=== PATIENT | female | born 1955 | race Caucasian/White ===

== ENCOUNTER 2018-01-10 07:56 | Day surgery (SDC) | payer MEDICARE, OTHER, SELFPAY ==
--- NOTE | 2018-01-10 | PATH_ITS ---
[facility] Accession Number: [id number] . 01 Material submitted: . PART A: DUODENAL PART B: ANTRAL PART C: GE JUNCTION PART D: FUNDUS PART E: COLON POLYP AT 25 . 02 Diagnosis: A. Duodenum, Biopsy: Duodenal mucosa with no diagnostic abnormality. Negative for active inflammation, features of sprue, dysplasia, or malignancy. . B. Stomach, Antrum, Biopsy: Antral-type mucosa with no diagnostic abnormality. Negative for Helicobacter organisms by immunohistochemistry. Negative for intestinal metaplasia. Negative for dysplasia and malignancy. . C. Gastroesophageal Junction, Biopsy: Columnar mucosa with no diagnostic abnormality. Negative for intestinal metaplasia by Alcian blue stain. Negative for dysplasia and maligancy. . D. Stomach, Fundus, Biopsies: Mild chronic gastritis. Negative for Helicobacter organisms by immunohistochemistry. Negative for intestinal metaplasia. Negative for dysplasia and malignancy. . E. Colon, Polyp At 25, Biopsy: Hyperplastic polyp with features of mucosal prolapse. Additional levels were examined. . . . . . . . . . . . . . . . . . . . . . . . . . . . . . . . . . . . . . . . . I/01/14/2018 . 02 Electronically signed: . Fabi Davis MD, Pathologist NPI- [id number] . 01 Gross description: . Received are five formalin-filled containers, each labeled with the patient's name: . A. In a container labeled duodenal, the specimen consists of two extremely tiny less than 0.1 cm portions of tissue, entirely submitted in cassette A. B. In a container labeled antral, the specimen consists of a 0.2 cm portion of tissue, entirely submitted in cassette B. C. In a container labeled GE junction, the specimen consists of a 0.1 cm portion of tissue and mucoid material, entirely submitted in cassette C. D. In a container labeled fundus, the specimen consists of a 0.2 cm portion of tissue, entirely submitted in cassette D. E. In a container labeled colon polyp at 25 cm, the specimen consists of three less than 0.1 cm to 0.3 cm portions of tissue, entirely submitted in cassette E. ([id number]) /FRR . 02 Microscopic: . B, D, Immunohistochemical stains were performed to evaluate for Helicobacter on blocks B and D. They are both negative. The control stain showed appropriate reactivity. . C. A HEAB stain was evaluate for intestinal metaplasia and is negative. The control stain showed appropriate reactivity. . . . . * This test was developed and its performance characteristics determined by [facility]. It has not been cleared or approved by the U.S. Food and Drug Administration. The FDA has determined that such clearance or approval is not necessary. This test is used for clinical purposes. It should not be regarded as investigational or for research. . 02 Pathologist provided ICD-10: R10.9 . 02 CPT . 536989, 935925, 662848, 117766, 009296, 710554, [id number] Performed at: 01 [facility] [address] [facility], [place], [place] [id number] MD Josiah Robison MD Phone: [phone] Performed at: 02 [facility] [address] [facility] [place], [place] [id number] MD Mc Padilla MD Phone: [phone]
[2018-01-10 08:37] VITALS: BP 179/86; PULSE 100; RESP 16; TEMP 37; O2SAT 97; BMI 43.0
[2018-01-10] MEDS: SODIUM CHLORIDE 0.9% 1,000 ML 200 ML IV (08:45)
--- NOTE | 2018-01-10 09:26 | P.HP_ITS ---
History of Present Illness Date Patient Seen: 01/10/18 Time Patient Seen: 09:22 Chief complaint: [id number] Narrative: Very pleasant lady of 62 years who presents today for EGD and colonoscopy. She was seen in our clinic approximately 3 months ago with complaint of dysphagia and severe left lower quadrant pain. She has an extensive medical history including at least 11 abdominal operations. Her last colonoscopy was in 2013 and was normal. Patient History Surgical History History of bilateral salpingo-oophorectomy (BSO) History of bilateral salpingo-oophorectomy (BSO) Status post delivery Status post delivery Status post colonoscopy Status post exploratory laparotomy Status post hysterectomy Family & Social History Family History: Reviewed 01/10/18 by Qing Stevens MD Social History: household members significant other Meds Home Medications Medication Instructions Recorded Confirmed Type POTASSIUM CHLORIDE (POTASSIUM 40 meq PO #0 05/12/11 History CHLORIDE SOLUTION (NOT AVAILABLE)) furosemide [Lasix] 80 mg PO Q DAY #0 05/12/11 01/10/18 History trazodone 150 mg PO HS #0 05/12/11 01/10/18 History clonazepam 2 mg PO BID #0 05/13/11 01/10/18 History ibuprofen 800 mg PO TIDP PRN #30 tab 05/27/16 01/10/18 Rx epinephrine 0.3 mg IJ PRN PRN #0 05/08/17 01/10/18 History lisinopril 20 mg PO QDAY #0 05/08/17 01/10/18 History Allergies Allergy/AdvReac Type Severity Reaction Status Date / Time iodine Allergy Severe Anaphylaxis Verified 01/10/18 08:27 Penicillins [PENICILLINS] Allergy Severe Anaphylaxis Verified 01/10/18 08:27 Sulfa (Sulfonamide Allergy Severe Anaphylaxis Verified 01/10/18 08:27 Antibiotics) [SULFA (SULFONAMIDE ANTIBIOTICS)] cephalexin [From KEFLEX] Allergy Intermediate Vomit Verified 01/10/18 08:27 codeine [CODEINE] Allergy Intermediate Vomit Verified 01/10/18 08:27 hydrocodone [HYDROCODONE] Allergy Intermediate Vomiting Verified 01/10/18 08:27 oxycodone [OXYCODONE] Allergy Intermediate Vomiting Verified 01/10/18 08:27 gabapentin [GABAPENTIN] AdvReac Unknown makes pt. Verified 01/10/18 08:27 really mean BEE VENOM Allergy Severe Anaphylaxis Uncoded 01/10/18 08:27 Review of Systems Review of Systems Significant left lower quadrant pain and dysphagia. She says the left lower quadrant pain is ?nasty?. She denies any change in her bowel habits and denies any weight loss. Exam Vital Signs (past 8 hours): Vital Signs - 8 hr 3 01/10/18 08:37 Temperature 98.6 F Pulse Rate 100 H Respiratory Rate 16 Blood Pressure 179/86 H Pulse Oximetry 97 Pulse Oximetry 97 Oxygen Delivery Method Room Air Narrative Exam Narrative: HEENT: NCAT, PERRLA, EOMI Lungs: CTAB CV: RRR, no murmur Abdomen: Soft, active bowel sounds, multiple healed abdominal incisions consistent with stated history Extremities: Warm and well perfused, 1+ edema bilaterally Assessment & Plan Plan: Assessment/Plan Narrative: Very pleasant lady with significant new dysphagia and a left lower quadrant abdominal pain in the setting of multiple operations for benign disease. We discussed the risks and benefits of EGD and colonoscopy and the patient expressed a desire to complete the procedures today.
[2018-01-10] MEDS: TETRACAINE/BENZOCAINE/BUTAMBEN (CETACAINE) BOTTLE 1 SPRAY TOP (10:06)
[2018-01-10] MEDS: PROMETHAZINE 25 MG/ML VIAL 12.5 MG IV (10:06)
[2018-01-10] MEDS: LIDOCAINE 4% SOLN 50 ML 20 ML TOP (10:06)
[2018-01-10] MEDS: MIDAZOLAM 5 MG/5 ML VIAL IV (10:07)
[2018-01-10] MEDS: fentaNYL 250 MCG/5 ML INJ IV (10:08)
--- NOTE | 2018-01-10 10:14 | PM.OP.1 ---
Operative Date/Time/Diagnoses - Date of procedure: 01/10/18 Time of procedure: 10:14 Pre-op diagnosis: Dysphagia Left lower quadrant pain and screening Post-op diagnosis: same Procedure & Clinicians Procedure: Esophagogastroduodenoscopies and colonoscopy with polypectomies Same procedure as scheduled: Yes Indications: Last Colonoscopy 2013 Surgeon: Qing Stevens Click Yes if Unassisted: Yes Anesthesia Type: Sedation (versed 12 mg; Fentanyl 300 mcg; Phenergan 12.5 mg) Operative Notes Findings: 1. Normal duodenum 2. Mild antral gastritis without ulceration 3. Retained gastric contents - fluid 4. GE junction at 40 cm from the incisors - very regular z line without hiatal hernia 5. Normal esophagus and posterior oropharynx 6. Adequate colon prep 7. A cluster of 3 sessile polyps at 25 cm from the anal verge. All removed with cold forceps and retained for pathology 8. Minimal diverticulosis in the distal descending colon 9. Grade 1-2 internal hemorrhoids 10. Two submucosal lipomas noted at 70 cm and 15 cm respectively. Closure Type: not applicable Specimen(s): other Estimated Blood Loss (mL): 1 Procedure in detail: After obtaining informed consent, the patient was brought to the GI suite and placed in the left lateral decubitus position on the examination table. After placement of appropriate monitors, the patient was given incremental doses of Versed and Fentanyl until an appropriate level of sedation was achieved. A time out was held per [facility]AP protocol. We began with EGD. A bite block was gently placed between the patient's teeth. The endoscope was lubricated and then passed into the patient's posterior oropharynx. The esophagus was cannulated under direct vision and the scope was passed to the second portion of the duodenum without difficulty. The scope was then withdrawn with careful examination of all areas of the upper GI tract and mucosa. In the stomach, the instrument was retroflexed and the GE junction examined. The scope was straightened and the procedure continued with examination of the remainder of the upper GI tract. Findings are noted above. Air was aspirated from the stomach and the endoscope gently removed from the esophagus. The examination table was turned and we continued with the colonoscopy. A digital rectal examination was performed and did not reveal any masses or obstructing lesions. The colonoscope was gently passed into the patient's anus and the entire colon navigated to the level of the cecum with minimal difficulty. Once in the cecum, the scope was withdrawn being sure to go before and beyond all mucosal folds and prominences and get an excellent examination. The findings are noted above. At the level of the rectal vault, the scope was retroflexed and the internal anal canal was examined. The scope was straightened and air aspirated from the colon. The instrument was removed from the patient's body and the procedure was concluded. The patient was allowed to awaken from sedation without difficulty and taken to the post-anesthesia care unit in good condition. Total sedation time was 50 minutes Colonoscopy withdrawl time was 22 minutes Complications: none Condition: stable Disposition: PACU Plan for aftercare: 1. Discharge to home 2. We will contact you with results and recommendations 3. Plan for next colonoscopy in 5 years or as clinically indicated.
[2018-01-10 10:21] VITALS: BP 154/83; PULSE 103; RESP 22; TEMP 36.4; O2SAT 97
[2018-01-10 10:24] VITALS: BP 165/91; PULSE 94; RESP 18; O2SAT 98
[2018-01-10 10:29] VITALS: BP 131/75; PULSE 89; RESP 12; TEMP 36.8; O2SAT 98
[2018-01-10 10:47] VITALS: BP 144/96; PULSE 85; RESP 16; TEMP 36.6; O2SAT 96
== END 2018-01-10 10:55 | disposition home or self-care (01) ==
PROVIDERS: Family Provider Student in an Organized Health Care Education/Training Program; PCP Student in an Organized Health Care Education/Training Program; Visit Provider Surgery
PROC: 0DJ08ZZ Inspection of Upper Intestinal Tract, Via Natural or Artificial Opening Endoscopic (ICD-10-PCS; CPT 43235; principal; 2018-01-10 08:45)
PROC: 0DJD8ZZ Inspection of Lower Intestinal Tract, Via Natural or Artificial Opening Endoscopic (ICD-10-PCS; CPT 45378; 2018-01-10 08:45)
DX: R10.32 Left lower quadrant pain (principal); R13.10 Dysphagia, unspecified; K29.70 Gastritis, unspecified, without bleeding; K57.30 Diverticulosis of large intestine without perforation or abscess without bleeding; D12.5 Benign neoplasm of sigmoid colon; K64.1 Second degree hemorrhoids; D17.5 Benign lipomatous neoplasm of intra-abdominal organs
CPT/HCPCS: 45380; 43235; 99152; 99153; J2250; J2550; J3010

== ENCOUNTER → 2018-03-26 07:28 | Outpatient (CLI) | payer MEDICARE, OTHER, SELFPAY ==
[2018-03-26 07:40] LABS: Bacteria Urine None Seen; RBC Urine None Seen (0-5/HPF); WBC Urine None Seen (0-5/HPF)
[2018-03-26 08:53] LABS: Appearance Urine UA CLEAR; Bilirubin Urine UA NEGATIVE (NEGATIVE); Color Urine UA YELLOW; Glucose Urine UA NEGATIVE (Normal); Ketones Urine UA NEGATIVE (NEGATIVE); Leukocyte Esterase Urine UA NEGATIVE (NEGATIVE); Nitrite Urine UA Negative (Negative); Occult Blood Urine UA NEGATIVE (Negative); Protein Urine UA NEGATIVE (Negative); Urobilinogen Urine UA 0.2 E.U./dL (0.2)
[2018-03-26 08:58] LABS: Add Manual Diff / Slide Review NO; Basophils Percent Auto 0.6 % (0-2); Eosinophils Percent Auto 1.4 % (2-4); Hematocrit 46.1 % (36-46); Hemoglobin 15.6 g/dL (12.0-16.0); Lymphocytes Percent Auto 32.6 % (25-40); Mean Corpuscular HGB Conc 33.9 % (30-36); Mean Corpuscular Hemoglobin 29.2 PG (26-34); Mean Corpuscular Volume 86.1 fL (80-100); Monocytes Percent Auto 9.1 % (3-14); Neutrophils Absolute Auto 4100 /uL (3000-5900); Neutrophils Percent Auto 56.3 % (50-75); Platelet Count 196 X10^3/uL (150-400); Red Blood Cell Count 5.36 X10^6/uL (4.0-5.2); Red Cell Distribution Width 14.1 % (11.6-14.8); White Blood Cell Count 7.3 X10^3/uL (4.5-11.0)
[2018-03-26 09:00] LABS: Alanine Aminotransferase 39 IU/L (9-52); Albumin 4.2 g/dL (3.5-5.0); Albumin Globulin Ratio 1.3 (1.0-2.8); Alkaline Phosphatase 92 U/L (38-126); Aspartate Aminotransferase 28 IU/L (14-36); BUN Creatinine Ratio 22.5 (6-22); Bilirubin Total 0.6 mg/dL (0.2-1.3); Blood Urea Nitrogen 18 mg/dL (7-17); Calcium 8.7 mg/dL (8.4-10.2); Carbon Dioxide 30 mmol/L (22-32); Chloride 102 mmol/L (98-107); Cholesterol 217 mg/dL (140-199); Culture Indicated Urine Cult Not Indicated; Estimated Glomerular Filt Rate > 60.0 mL/min (>60); Globulin 3.2 g/dL (1.7-4.1); Glucose 137 mg/dL (80-110); HDL Cholesterol 49 mg/dL (40-60); HEMOLYSIS 16 (0-50); LDL Cholesterol Calculated 135 mg/dL (<100); Potassium 3.8 mmol/L (3.4-5.1); Sodium 143 mmol/L (137-145); Total Protein 7.4 g/dL (6.3-8.2); Triglycerides 165 mg/dL (35-150)
[2018-03-26 09:36] LABS: Creatinine Urine Random 30.4 mg/dL
[2018-03-26 09:37] LABS: Hemoglobin A1C% w Est Avg Glu 6.2 % (4.0-6.0)
[2018-03-26 09:39] LABS: Thyroid Stimulating Hormone 0.48 uIU/mL (0.47-4.68)
[2018-03-26 09:41] LABS: Microalbumi Creatinin Ratio Ur 19.7 ug/mg CR (<30); Microalbumin Urine Random < 0.6 mg/dL (0-1.6)
== END ==
PROVIDERS: Visit Provider Registered Nurse
DX: E03.9 Hypothyroidism, unspecified (principal); E66.9 Obesity, unspecified; I10 Essential (primary) hypertension
CPT/HCPCS: 36415; 80053; 80061; 81001; 82043; 82570; 83036; 84443; 85025

== ENCOUNTER → 2018-04-02 09:03 | Outpatient (CLI) | payer MEDICARE, OTHER, SELFPAY ==
--- NOTE | 2018-04-02 09:08 | DI.RAD.S_ITS ---
PROCEDURE: XR KNEE RT 3V INDICATIONS: knee pain TECHNIQUE: 3 views of the knee were acquired. [facility], 8:58. FINDINGS: Bones: No fractures or dislocations. No suspicious bony lesions. Right knee arthroplasty. Hardware is intact without evidence of loosening. Soft tissues: No joint effusion. No suspicious soft tissue calcifications. IMPRESSION: Stable interval exam. Dictated by: Sydnee Husain M.D. on 04/02/2018 at 9:20 Approved by: Sydnee Husain M.D. on 04/02/2018 at 9:48
--- NOTE | 2018-04-02 09:08 | DI.RAD.S_ITS ---
PROCEDURE: XR KNEE LT 3V INDICATIONS: knee pain TECHNIQUE: 3 views of the knee were acquired. COMPARISON: [facility], , KNEE 1-2 VIEWS RIGHT, 05/29/2007, 19:32. FINDINGS: Bones: No fractures or dislocations. No suspicious bony lesions. There is severe tricompartmental narrowing, most significant medially. Prominent periarticular osteophytes are present. Medial subchondral sclerosis is present. No erosions. Soft tissues: Minimal joint effusion. No suspicious soft tissue calcifications. IMPRESSION: Severe tricompartmental degenerative changes consistent with osteoarthritis. Dictated by: Sydnee Husain M.D. on 04/02/2018 at 9:48 Approved by: Sydnee Husain M.D. on 04/02/2018 at 9:54
[2018-04-04 21:23] LABS: Protein S Antigen 107 % normal (70-140)
[2018-04-05 23:14] LABS: Protein C Antigen 127 % normal (70-140)
== END ==
PROVIDERS: PCP Registered Nurse; Visit Provider Registered Nurse
DX: M25.561 Pain in right knee (principal); M25.562 Pain in left knee; G89.29 Other chronic pain; M17.12 Unilateral primary osteoarthritis, left knee; Z86.718 Personal history of other venous thrombosis and embolism; Z83.2 Family history of diseases of the blood and blood-forming organs and certain disorders involving the immune mechanism
CPT/HCPCS: 36415; 73562; 81240; 81241; 85300; 85302; 85306

== ENCOUNTER → 2018-06-21 11:07 | Outpatient (CLI) | payer MEDICARE, OTHER, SELFPAY ==
[2018-06-21 11:26] LABS: Bacteria Urine None Seen; RBC Urine None Seen (0-5/HPF); WBC Urine None Seen (0-5/HPF)
[2018-06-21 12:25] LABS: Appearance Urine UA CLEAR; Bilirubin Urine UA NEGATIVE (NEGATIVE); Color Urine UA YELLOW; Glucose Urine UA NEGATIVE (Normal); Ketones Urine UA NEGATIVE (NEGATIVE); Leukocyte Esterase Urine UA NEGATIVE (NEGATIVE); Nitrite Urine UA NEGATIVE (Negative); Occult Blood Urine UA NEGATIVE (Negative); Protein Urine UA NEGATIVE (Negative); Specific Gravity Urine UA 1.015 (1.000-1.035); Urobilinogen Urine UA 0.2 E.U./dL (0.2); pH Urine UA 6.5 (4.5-8.0)
[2018-06-21 12:28] LABS: Alanine Aminotransferase 43 IU/L (9-52); Albumin 4.2 g/dL (3.5-5.0); Albumin Globulin Ratio 1.4 (1.0-2.8); Alkaline Phosphatase 85 U/L (38-126); Aspartate Aminotransferase 27 IU/L (14-36); BUN Creatinine Ratio 25.6 (6-22); Bilirubin Total 0.4 mg/dL (0.2-1.3); Blood Urea Nitrogen 23 mg/dL (7-17); Calcium 9.2 mg/dL (8.4-10.2); Carbon Dioxide 30 mmol/L (22-32); Chloride 98 mmol/L (98-107); Cholesterol 200 mg/dL (140-199); Estimated Glomerular Filt Rate > 60.0 mL/min (>60); Globulin 2.9 g/dL (1.7-4.1); Glucose 140 mg/dL (80-110); HDL Cholesterol 50 mg/dL (40-60); HEMOLYSIS < 15 (0-50); LDL Cholesterol Calculated 97 mg/dL (<100); Potassium 4.3 mmol/L (3.4-5.1); Sodium 142 mmol/L (137-145); Total Protein 7.1 g/dL (6.3-8.2); Triglycerides 266 mg/dL (35-150)
[2018-06-21 12:30] LABS: Add Manual Diff / Slide Review NO; Basophils Percent Auto 0.5 % (0-2); Eosinophils Percent Auto 1.6 % (2-4); Hematocrit 45.9 % (36-46); Hemoglobin 15.9 g/dL (12.0-16.0); Lymphocytes Percent Auto 31.8 % (25-40); Mean Corpuscular HGB Conc 34.7 % (30-36); Mean Corpuscular Hemoglobin 29.9 PG (26-34); Mean Corpuscular Volume 86.2 fL (80-100); Monocytes Percent Auto 7.8 % (3-14); Neutrophils Absolute Auto 4400 /uL (3000-5900); Neutrophils Percent Auto 58.3 % (50-75); Platelet Count 215 X10^3/uL (150-400); Red Blood Cell Count 5.33 X10^6/uL (4.0-5.2); Red Cell Distribution Width 13.8 % (11.6-14.8); White Blood Cell Count 7.6 X10^3/uL (4.5-11.0)
[2018-06-21 12:34] LABS: Culture Indicated Urine Cult Not Indicated; Urine Comments Microscopic Normal
[2018-06-21 12:35] LABS: Hemoglobin A1C% w Est Avg Glu 6.2 % (4.0-6.0)
== END ==
PROVIDERS: PCP Student in an Organized Health Care Education/Training Program; Visit Provider Student in an Organized Health Care Education/Training Program
DX: Z01.811 Encounter for preprocedural respiratory examination (principal); E55.9 Vitamin D deficiency, unspecified; Z91.89 Other specified personal risk factors, not elsewhere classified; E78.5 Hyperlipidemia, unspecified
CPT/HCPCS: 36415; 80053; 80061; 81001; 82306; 83036; 85025; 93005

== ENCOUNTER → 2018-07-03 17:01 | Outpatient (CLI) | payer MEDICARE, OTHER, SELFPAY ==
--- NOTE | 2018-07-03 17:07 | DI.MRI.S_ITS ---
PROCEDURE: MR KNEE LT WO CON INDICATIONS: UNILATERAL PROMARY OSTEOARTHRITIS OF LEFT KNEE. LEFT KNEE PAIN TECHNIQUE: Noncontrast sagittal PD fast spin echo and T2 fast spin echo with fat saturation, sagittal 3-D FLASH with fat saturation; coronal T1 spin echo and PD fast spin echo with fat saturation, and axial PD fast spin echo with fat saturation through the knee. COMPARISON: None. FINDINGS: Image quality: Excellent. Menisci: There is an oblique tear involving posterior horn of medial meniscus extending to inferior articulating surface. Peripheral displacement of medial meniscus is seen bowing medial collateral ligament. There is also suggestion of a complex oblique tear involving anterior horn of lateral meniscus extending to inferior articulating surface. The meniscal root ligaments appear intact. Cruciate ligaments: The anterior and posterior cruciate ligaments appear intact. Medial structures: The medial collateral ligament appears intact. The posterior oblique ligament, semimembranosus tendon insertions, oblique popliteal ligament, and meniscocapsular junction appear intact. Visualized portions of the pes anserinus tendons appear normal. No abnormal bursal fluid. Lateral structures: The lateral collateral ligament, long and short heads of the biceps femoris tendon appear intact. The popliteus tendon appears normal; the popliteofibular ligament appears intact. The posterosuperior and anteroinferior popliteomeniscal fascicles appear intact. The arcuate and fabellofibular ligaments appear intact, on either side of the lateral inferior geniculate artery. Iliotibial band appears normal. Anterior structures: The quadriceps and patellar tendons appear intact. Patellar alignment is normal. No femoral trochlear dysplasia or ventral trochlear prominence. No edema in the infrapatellar fat pad. Bones and cartilage: Moderate tricompartmental osteoarthritis is seen no prominent in medial femoral tibial compartment. Diffuse low to moderate chondromalacia throughout all 3 compartments of left knee is noted. Joint space: There is small amount of joint effusion. No Gooden's cyst. Normal appearing synovial plicae are incidentally noted. IMPRESSION: 1. Oblique tear involving posterior horn of medial meniscus extending to inferior articulating surface. Peripheral displacement of medial meniscus bowing medial collateral ligament. 2. Complex oblique tear involving anterior horn of lateral meniscus extending to inferior articulating surface. 3. Moderate tricompartmental osteoarthritis more prominent in medial femoral tibial compartment. 4. Cruciate ligaments are intact. Dictated by: Praveen Bo M.D. on 07/04/2018 at 9:09 Approved by: Praveen Bo M.D. on 07/04/2018 at 9:14
== END ==
PROVIDERS: Family Provider Student in an Organized Health Care Education/Training Program; PCP Student in an Organized Health Care Education/Training Program; Visit Provider Orthopaedic Surgery
DX: M17.12 Unilateral primary osteoarthritis, left knee (principal); M25.562 Pain in left knee; S83.242A Other tear of medial meniscus, current injury, left knee, initial encounter; S83.272A Complex tear of lateral meniscus, current injury, left knee, initial encounter
CPT/HCPCS: 73721

== ENCOUNTER → 2018-08-06 07:51 | Outpatient (CLI) | payer MEDICARE, OTHER, SELFPAY ==
[2018-08-06 09:01] LABS: Add Manual Diff / Slide Review NO; Basophils Absolute Auto 100 /uL (0-100); Basophils Percent Auto 0.7 % (0-2); Eosinophils Absolute Auto 200 /uL (0-450); Eosinophils Percent Auto 2.4 % (2-4); Hematocrit 48.2 % (36-46); Hemoglobin 15.9 g/dL (12.0-16.0); Lymphocytes Absolute Auto 3100 /uL (1100-4500); Monocytes Absolute Auto 800 /uL (0-900); Monocytes Percent Auto 8.8 % (3-14); Neutrophils Absolute Auto 4700 /uL (1500-7000); Neutrophils Percent Auto 53.1 % (50-75); Platelet Count 244 X10^3/uL (150-400); Red Blood Cell Count 5.47 X10^6/uL (4.0-5.2); Red Cell Distribution Width 13.8 % (11.6-14.8); White Blood Cell Count 8.8 X10^3/uL (4.5-11.0)
[2018-08-06 09:05] LABS: Hemoglobin A1C% w Est Avg Glu 6.4 % (4.0-6.0)
[2018-08-06 09:21] LABS: Carbon Dioxide 29 mmol/L (22-32); Chloride 99 mmol/L (98-107); Potassium 4.8 mmol/L (3.4-5.1); Sodium 141 mmol/L (137-145)
[2018-08-06 09:22] LABS: HEMOLYSIS 113 (0-50)
[2018-08-06 09:47] LABS: Vitamin D 25 Hydroxy (D3) 24.2 ng/mL (30.0-100.0)
== END ==
PROVIDERS: Family Provider Student in an Organized Health Care Education/Training Program; PCP Student in an Organized Health Care Education/Training Program; Visit Provider Orthopaedic Surgery
DX: R73.9 Hyperglycemia, unspecified (principal); Z01.818 Encounter for other preprocedural examination; E11.9 Type 2 diabetes mellitus without complications; E55.9 Vitamin D deficiency, unspecified
CPT/HCPCS: 80051; 82306; 83036; 85025

== ENCOUNTER 2018-08-21 07:39 | Inpatient (IN) | payer MEDICARE, OTHER, SELFPAY ==
[2018-08-05 08:29] VITALS: BMI 44.3
[2018-08-21] VITALS (13 sets, daily range): BP systolic 123–160; BP diastolic 53–95; PULSE 93–109; RESP 14–106; TEMP 36.3–36.9; O2SAT 96–100; BMI 44.9; BMI 44.7
--- NOTE | 2018-08-21 07:49 | PM.PREOP ---
Pre-operative Note Interval Note History & Physical reviewed/Exam performed by Physician: Yes Changes to H&P: No
--- NOTE | 2018-08-21 07:50 | PM.OP.1 ---
Operative Date/Time/Diagnoses Date of procedure: 08/21/18 Time of procedure: 11:52 Pre-op diagnosis: Left knee osteoarthritis Post-op diagnosis: same Procedure & Clinicians Procedure: Left total knee arthroplasty Same procedure as scheduled: Yes Surgeon: Josiah Connell Director Volunteer Services: Misha Triana Anesthesia Type: Spinal, Sedation and Local Operative Notes Findings: SEVERE OSTEOARTHRITIS WITH VARUS ALIGNMENT. Closure Type: primary Specimen(s): none sent Prosthetic devices, grafts, tissues, transplants, or devices: [employer] ESME BCS: 7 FEMORAL COMPONENT, 5 TIBIAL COMPONENT, 9 MM BCS POLYETHYLENE TRAY AND 35 X9 MM ROUND PATELLA Applied: implant(s) Estimated Blood Loss (mL): 50 Blood products transfused: none Tourniquet time (min): 25 Procedure in detail: The patient was taken to the operative suite and placed under spinal anesthesia. The patient was given prophylactic antibiotics prior to surgery. The patient was also given tranexamic acid, 1 g, just prior to surgery for postoperative hemostasis. The lateral knee was prepped and the joint injected with 20 mL of 1% Lidocaine with epinephrine. The knee was then prepped and draped in usual sterile fashion. The leg was exsanguinated with an Esmarch dressing and the tourniquet raised to 300 torr. A 15 cm anterior incision was made. Next a medial trivector arthrotomy was made. The extensor mechanism was marked to ensure accurate repair. Initial exposing dissection was carried out medially and laterally. The knee was then extended and the patellar thickness was measured and a cut made removing approximately 9 mm of bone with a goal of restoring normal patellar thickness. The patella was then sized and drilled. Some excess lateral bone was excised and the patellofemoral ligament released. The tourniquet was then released. The knee was then flexed and the [employer] femoral guide was placed. The anterior pins were placed and the distal rotation holes drilled. The distal cutting guide was placed and the templated distal femoral cut was made. The templating cutting block was then placed and the anterior, posterior and chamfer cuts made. The [employer] tibial guide was placed and the alignment checked along the axis of the proximal tibial with a ross. The proximal tibial cut was then made with an oscillating saw. All meniscus and bony debris was then removed. Flexion extension gaps were checked. The knee was somewhat tight in both flexion and extension. Another 2 mm was removed from the tibia. No other specific balancing was required other than routine exposure and removal of osteophytes. The soft tissues were then injected with a combination of 20 mL of half percent Marcaine with epinephrine and 20 mL of Exparel. The trial components were then placed. The knee went into full extension and flexion beyond 120?. There was excellent medial- lateral balance throughout motion. Patellar tracking was acceptable. The trial components were removed and size is confirmed for the final implants. The knee was then exsanguinated with an Esmarch dressing and the tourniquet reapplied for cementing. The knee was cleansed with Pulsavac irrigation and dried. The final components were cemented in with high viscosity vacuum mixed bone cement with antibiotics. The knee was held in extension and the patellar clamp until the cement had adequately cured. The knee was then irrigated with dilute Betadine solution. The extensor mechanism was closed with 5 interrupted #1 Vicryl sutures in 90 degrees of flexion. The joint was then injected with a combination of 1 g of tranexamic acid and 20 mL of quarter percent Marcaine with epinephrine. The subcutaneous tissue was closed with 2-0 Vicryl. The skin was closed with aviva and surgical adhesive. An Aquacel dressing and Paul wrap were then applied. Complications: none Condition: stable Disposition: PACU [facility]
[2018-08-21] MEDS: LACTATED RINGERS 1,000 ML 42 ML IV (08:30)
[2018-08-21] MEDS: ACETAMINOPHEN 325 MG TABLET 975 MG PO ×2 (08:37→21:23)
[2018-08-21] MEDS: CELECOXIB 200 MG CAPSULE PO (08:37)
[2018-08-21] MEDS: MIDAZOLAM 2 MG/2 ML VIAL IV (10:00)
[2018-08-21] MEDS: CLINDAMYCIN 900 MG/50 ML PIGGYBACK 50 MG IV ×2 (10:15→18:37)
--- NOTE | 2018-08-21 10:30 | DI.RAD.S_ITS ---
PROCEDURE: XR KNEE LT 1TO2V INDICATIONS: Postop left total knee TECHNIQUE: 2 view(s) of the knee acquired. COMPARISON: [facility], [facility], XR KNEE RT 3V, 04/02/2018, 8:58. FINDINGS: Bones: Patient is status post knee joint arthroplasty. Hardware components are in expected positions. Visualized bony structures are intact. Soft tissues: Overlying postoperative changes are noted. IMPRESSION: Expected postoperative appearance Dictated by: Duke Woodard M.D. on 08/21/2018 at 13:14 Approved by: Duke Woodard M.D. on 08/21/2018 at 13:14
[2018-08-21] MEDS: LIDOCAINE 1% W/EPI INJ 20 ML INJ (10:40)
--- NOTE | 2018-08-21 10:59 | SUR.OPER ---
Supine on padded OR bed. Pillow under head, arms secured on padded armboards <90 degree abduction. Safety belt across torso. Non-operative leg secured with tape over blanket over lower leg. Operative leg secured in DeMayo/Leobardo positioner. Foam padded brace at thigh of operative leg.
[2018-08-21] MEDS: BUPIVACAINE 0.5% W/ EPI (PF) 20 ML, BUPIVACAINE LIPOSOME 266 MG, SODIUM CHLORIDE 0.9% 8... INJ (11:11)
[2018-08-21] MEDS: BUPIVACAINE 0.5% W/ EPI (PF) 10 ML, TRANEXAMIC ACID 1,000 MG, SODIUM CHLORIDE 0.9% 20 ML INJ (11:13)
[2018-08-21] MEDS: diphenhydrAMINE 50 MG/ML VIAL IV (13:04)
[2018-08-21] MEDS: LACTATED RINGERS 1,000 ML 125 ML IV ×2 (13:05→21:26)
[2018-08-21] MEDS: ONDANSETRON 4 MG/2 ML INJ IV ×2 (13:18→18:37)
[2018-08-21] MEDS: HYDROMORPHONE 0.5 MG INJ IV ×2 (14:11→16:19)
[2018-08-21] MEDS: HYDROMORPHONE 2 MG TABLET PO ×3 (14:58→21:22)
--- NOTE | 2018-08-21 15:33 | PC.ADMIT ---
Admission Note: Arrived to 210 at 1230 from PACU. Alert and oriented x3 and denying pain, numbness present to BLEs on arrival. Pt reported itchiness all over, no visible rash. Order for Benadryl IV received from Dr. Torres and administered with good effect. Oriented to room and to bed/tv/call light controls. Call light within reach. Belongings at bedside - declines to lock valuables up. Cane and walker in room. Currently reporting pain 03/01 - IV dilaudid administered with minimal effect, PO Dilaudid given at 1500 after patient ate some crackers without issue. The patient,Charlotte Rico,62 y/o, was given written information regarding hospital policies, unit procedures and contact persons. Patient's smoking status: Former smoker. Vital Signs - 8 hr 08/21/18 08:20 08/21/18 12:05 08/21/18 12:10 Temperature 97.3 F L 98.1 F Pulse Rate 96 H 109 H 95 H Respiratory Rate 18 14 15 Blood Pressure 138/95 H 133/53 L 123/59 L Pulse Oximetry 96 98 97 08/21/18 12:15 08/21/18 12:20 08/21/18 12:30 Temperature 97.4 F L Pulse Rate 98 H 93 H 95 H Respiratory Rate 14 14 18 Blood Pressure 130/68 152/55 H 160/55 H Pulse Oximetry 97 99 97 08/21/18 13:00 08/21/18 13:19 08/21/18 13:30 Temperature 97.3 F L Pulse Rate 96 H 96 H 94 H Respiratory Rate 18 16 18 Blood Pressure 142/85 H 155/86 H Pulse Oximetry 96 98 100 08/21/18 14:30 Temperature 97.3 F L Pulse Rate 99 H Respiratory Rate 16 Blood Pressure 129/67 Pulse Oximetry 97
--- NOTE | 2018-08-21 15:45 | PT.IIE ---
Current Diagnoses Morbid (severe) obesity due to excess calories (08/21/18) Generalized anxiety disorder (08/21/18) Anxiety disorder, unspecified (08/21/18) Post-traumatic stress disorder, unspecified (08/21/18) Attention-deficit hyperactivity disorder, unspecified type (08/21/18) Obstructive sleep apnea (adult) (pediatric) (08/21/18) Other chronic pain (08/21/18) Other pulmonary embolism without acute cor pulmonale (08/21/18) Unilateral primary osteoarthritis, left knee (08/21/18) Dorsalgia, unspecified (08/21/18) Fibromyalgia (08/21/18) Surgery Performed Operation Date: 08/21/18 10:30 Actual Procedures p Total Knee Arthroplasty(Left) - Josiah Connell MD Surgical History (Last Reviewed 08/09/18 @ 12:37 by MARGARITA Cardenas) H/O spinal fusion (Acute) History of colonoscopy (Acute ~01/10/18) History of esophagogastroduodenoscopy (EGD) (Acute ~01/10/18) History of exploratory laparotomy (Acute) History of total knee arthroplasty (Acute ~2006) History of gynecologic surgery (Resolved 2006) History of unilateral oophorectomy (Resolved 1993) History of unilateral oophorectomy (Resolved 1992) Status post delivery (Resolved 1973) Status post delivery (Resolved 1974) Status post colonoscopy (Resolved 2013) Status post exploratory laparotomy (Resolved 2004) Status post hysterectomy (Resolved 1990) History of bilateral salpingo-oophorectomy (BSO) History of bilateral salpingo-oophorectomy (BSO) Medical History (Last Reviewed 08/09/18 @ 12:37 by MARGARITA Cardenas) Arthritis (Acute) Benzodiazepine dependence, continuous (Acute) Cataract (Acute) Chronic pain (Acute) Claustrophobia (Acute) Constipation (Acute) DDD (degenerative disc disease) (Acute) Degenerative arthritis of left knee (Acute) Diabetes (Acute) Dry eyes (Acute) Frequent UTI (Acute) GERD (gastroesophageal reflux disease) (Acute) Generalized anxiety disorder (Acute) Headache (Acute) Hemorrhoids (Acute) Herniated disc (Acute) High protein C activity level (Acute) History of hysterectomy (Acute ~1990) History of migraine (Acute) IBS (irritable bowel syndrome) (Acute) Impairment of balance (Acute) Incontinence (Acute) Neuropathy (Acute) APOLONIA (obstructive sleep apnea) (Acute) TIA (transient ischemic attack) (Acute ~2010) Vitamin D deficiency (Acute) ADHD (Chronic) Ankle pain (Chronic) Anxiety (Chronic) Carpal tunnel syndrome (Chronic) Cervical spine disease (Chronic) Chronic back pain (Chronic) Colon polyps (Chronic ~2017) Deep vein thrombosis (Chronic ~2006) Diverticular disease (Chronic ~2002) Fibromyalgia (Chronic) Foot pain (Chronic) Headache (Chronic) History of urinary incontinence (Chronic ~2007) Hypertension (Chronic ~2002) Hypothyroidism (Chronic ~1994) Leg swelling (Chronic) Lumbar spine pain (Chronic) Migraines (Chronic) Osteoporosis (Chronic) Post traumatic stress disorder (PTSD) (Chronic) Pulmonary embolism (Chronic ~2006) Rosacea (Chronic) Shoulder pain (Chronic) Colovaginal fistula (Resolved 2006) Mumps (Resolved) Rubella (Resolved) Stroke (Resolved) Physical Therapy Inpatient Evaluation/Re-Eval M1 PT/OT-IP Prior Functional Status Start: 08/21/18 16:24 Freq: NEEDED Status: Active Protocol: Document 08/21/18 15:45 AB (Rec: 08/21/18 16:39 AB [id number]) Medical Review Prior Functional Status Medical History Reviewed Yes Communication able to make needs known Mobility and Gait stated that she is independent with all mobilities and ambulation without AD indoors but with occasional use of SPC but uses SPC for outdoor mobility at all times. stated that she holds on to things at home during walking Social History Household Members significant other Living Arrangements Apartment/Condo Number of Floors (Floors) One Floor Number of Stairs To Enter/Railing? one small threshold step to enter Home Environment Standard Height Toilet Tub/Shower Home Equipment Front Wheel Walker Straight Cane Tub Transfer Bench Grab Bars In Shower Employment Status Retired M2 PT-IP Current Condition Start: 08/21/18 16:24 Freq: NEEDED Status: Active Protocol: Document 08/21/18 15:45 AB (Rec: 08/21/18 16:39 AB [id number]) Physical Therapy Current Condition Current Condition Evaluation Date 08/21/18 Treatment Diagnosis s/p L TKA; difficulties in walking Onset Date 08/21/18 Weight Bearing Status Weight Bearing Status Weight Bear as Tolerated M3 PT-IP Subjective Start: 08/21/18 16:24 Freq: NEEDED Status: Active Protocol: Document 08/21/18 15:45 AB (Rec: 08/21/18 16:39 AB [id number]) Subjective Physical Therapy Visit Type Type Initial Evaluation Visit Start Time 15:45 Visit Stop Time 16:20 Total Visit Minutes 35 Number of GARAGE SUPERVISOR Visits 0 Physical Therapy Visit Comments Patient Comments c/o a lot of knee pain but agreed to try to get up Therapy Pain Assessment Pain When Pain Assessed At Rest Pain Present Pain Present Pain Reported Location Bilateral Knee Intensity 9 Scale Used Numeric (1 - 10) Pain Behaviors Facial Grimacing Guarding Holding Area Restlessness Wincing Pain Management Techniques Apply Cold Re-positioning Timing of Activity with Medications M4 PT-IP Mobility and Gait Start: 08/21/18 16:24 Freq: NEEDED Status: Active Protocol: Document 08/21/18 15:45 AB (Rec: 08/21/18 16:39 AB [id number]) PT-Bed Mobility Assessment Supine to Sit Supine to Sit Minimal Assistance Bedrails Sit to Supine Sit to Supine Moderate Assistance Bedrails Scooting Scooting to Edge of Bed Moderate Assistance PT-Transfer Assessment Sit to and From Stand Sit to and from Stand Moderate Assistance 1 Person Assistance Use of Upper Extremities Comments Mobility Comments pt completed supine to sit min a to support LLE . pt completed sit to stand from EOB mod A and cues. attempted to ambulate but only able to take steps towards HOB ~ 3 ft using FWW mod A and cues. pt stated that she cannot walk too much due to pain. pt completed sit to supine mod A with assist with LLE up on bed . positioned pt on bed. ice pack provided. call light and table placed within reach. Gait Assessment Gait Gait Assistance Required: Moderate Assistance 1 Person Assist Distance (Feet) 3 Assistive Devices Assistive Device Gait Belt Front Wheeled Walker Orthotic/Prosthetic Devices or Brace: No Gait Deviations General Gait Pattern Antalgic Decreased Stride Length Decreased Feet Clearance Step-to Gait Factors Limiting Gait Function Factors Limiting Gait Function Decreased Activity Tolerance Decreased Sensation Decreased Strength Limited Range of Motion Pain Poor Balance Poor Safety Awareness Comments Gait Comments pt unable to tolerate much weight on LLE affecting standing and ambulation. PT-Balance Assessment Sitting Balance and Reactions Static Sitting Balance Ability Good Dynamic Sitting Balance Ability Good Standing Balance and Reactions Static Standing Balance Ability Fair Dynamic Standing Balance Ability Fair Device Used FWW M5 PT-IP Objective Assessments Start: 08/21/18 16:24 Freq: NEEDED Status: Active Protocol: Document 08/21/18 15:45 AB (Rec: 08/21/18 16:39 AB [id number]) Orientation Orientation/Cognition Level of Alertness Alert Orientation Name Age Month Place Situation Language Function Ability No Deficits Noted Safety Awareness Understands Safety Issues Gross Range of Motion Lower Extremity ROM Assessment Left Impaired Impairments L knee flexion ~ 30 deg with pain inhibiting movement Strength Lower Extremity Strength Assessment Left Impaired Knee 3-/5 Sensation Assessment Sensation Gross Sensation Right LE Impaired Sensation Description Numbness Comments Sensation Comments stated that due to R knee's previous surgery, she has nerve damage and RLE is very sensitive and has numbness Muscle Tone Muscle Tone WNL Yes M6 PT-IP Treatment Start: 08/21/18 16:24 Freq: NEEDED Status: Active Protocol: Document 08/21/18 15:45 AB (Rec: 08/21/18 16:39 AB [id number]) Physical Therapy Treatment Exercises Exercises Heel Slides Education Education Provided Precautions Weight Bearing Status Safety M7 PT-IP Assessment and Plan Start: 08/21/18 16:24 Freq: NEEDED Status: Active Protocol: Document 08/21/18 15:45 AB (Rec: 08/21/18 16:39 AB [id number]) PT Summary Assessment and Plan Potential Rehabilitation Potential Fair Status of Condition at Evaluation Evolving Summary Impairments Pain ROM Strength Balance Coordination Sensation Tone Cognition Bed Mobility Transfers Gait Activity Tolerance Assessment Summary pt unable to tolerate much activity today with c/o increase pain affecting mobility. d/c plan depending on progress. will continue to assess. pt want to go home with her boyfriend to assist her and stated that she has outpt PT already set up. Goals Bed Mobility Goal Standby Assistance Transfer Goal Standby Assistance Front Wheeled Walker Gait Goal Standby Assistance Front Wheel Walker Gait Distance 150 Other Goals 1 step using FWW SBA Days to Meet Goals 3 Frequency of Treatment Frequency Of Treatment Twice a Day Treatment Plan Physical Therapy Treatment Plan Bed Mobility Training Transfer Training Gait Training Therapeutic Exercise Balance Retraining Post Op Education Discharge Planning Hot or Cold Pack Neuromuscular Re-ed Coordination Retraining Manual Therapy Other Recommendations and Next Treatment ambulation, caregiver training Focus , stair climbing Recommendations To Nursing Amount of Assist Needed 1 Person Assist Discharge Recommendations PT Discharge Recommendations Home with 12/02 Assist SNF Rehab Outpatient PT Other Discharge Recommendations depending on progress: SNF vs home with 24/7 and outpt PT
[2018-08-21] MEDS: IBUPROFEN 600 MG TABLET PO (16:21)
--- NOTE | 2018-08-21 19:04 | PC.NURSE ---
1845 - Pt c/o nausea following po dilaudid administration. Zofran given. 1 person assist to bsc. +void. Call light in reach.
[2018-08-21] MEDS: clonazePAM 0.5 MG TABLET 2 MG PO (21:22)
[2018-08-21] MEDS: LEVOTHYROXINE 100 MCG TABLET 200 MCG PO ×2 (21:23→21:25)
[2018-08-21] MEDS: METFORMIN HCL 500 MG TABLET 1000 MG PO (21:24)
[2018-08-21] MEDS: ASPIRIN EC 81 MG TABLET PO (21:24)
[2018-08-22] VITALS (7 sets, daily range): BP systolic 113–153; BP diastolic 65–97; PULSE 98–106; RESP 16–20; TEMP 36.5–37.2; O2SAT 95–99
[2018-08-22] MEDS: ONDANSETRON 4 MG ODT PO (00:58)
[2018-08-22] MEDS: HYDROMORPHONE 2 MG TABLET PO ×3 (00:59→09:23)
--- NOTE | 2018-08-22 01:11 | PC.NURSE ---
Addendum entered by Candice Lozano R.N. 08/22/18 05:53: Patient slept at intervals. Up x 1 to BSC with walker and 1 assist. States pain worsens with movement and is now 4/10 so medicated with Dilaudid and ice applied. Declined Zofran at this time even though taking Dilaudid. States she had nausea when up to BSC earlier but is now resolved and believes it was related to pain. Original Note: Patient is alert and oriented. Breath sounds CTA with RA sat of 96-99% with home CPAP on. HRR. Denies nausea but pre-medicated with SL Zofran prior to pain med due to reported nausea with narcotics. BT hypoactive; states she is passing flatus. Has been voiding and denies dysuria, frequency or urgency. Able to turn self in bed but is assisted out of bed with walker and 1 assist. Dressing/jake to left knee is CDI. States pain is currently 3/10 at rest and 5/10 with movement; medicated with Dilaudid and ice applied to knee. CMS is intact. Has chronic bilateral LE edema. Wearing SCD on right leg only due to pain control issues on left. Fall risk score is high and bed alarm is activated per protocol.
[2018-08-22] MEDS: CLINDAMYCIN 900 MG/50 ML PIGGYBACK 50 MG IV (02:00)
[2018-08-22 05:59] LABS: Hematocrit 41.4 % (36-46); Hemoglobin 13.5 g/dL (12.0-16.0)
--- NOTE | 2018-08-22 08:12 | PM.PNPO.1 ---
Subjective Date Patient Seen: 08/22/18 Time Patient Seen: 08:12 Interval history: Hospital day 2, postop day 1 following left total knee arthroplasty by Dr. Connell. Patient was able to rest off and on during the night. Still having noticeable pain to the left knee. She is taking Dilaudid 2 mg q.3h and ibuprofen and Tylenol. Patient lives on [facility] with her boyfriend. She also has some friends available to help her. She is scheduled to go to [facility] PT next week. She was up with PT yesterday had noticeable increase in pain after ambulation. She does not have stairs at home. Exam Vital Signs (past 8 hours): - 08/22/18 04:08 08/22/18 07:45 Temperature 98.8 F 98.7 F Pulse Rate 99 H 101 H Respiratory Rate 18 18 Blood Pressure 153/78 H 150/72 H Pulse Oximetry 97 99 Fraction of Inspired Oxygen 21 Oxygen Delivery Method CPAP Oxygen Flow Rate 0 Narrative Exam Narrative: Alert, oriented no acute distress resting in bed. Left leg. Paul wrap an Aquacel dressing left knee is dry without drainage or inflammation. Mild swelling of left calf. Calf is soft and nontender. Good pulses distally. Objective Labs Result Diagrams: 08/22/18 05:23 Labs: Laboratory Results - last 24 hr 08/22/18 05:23 Hgb 13.5 Hct 41.4 Assessment & Plan Post-op Postoperative Procedures Operation Date: 08/21/18 10:30 Actual Procedures Side Surgeon p Total Knee Arthroplasty Left Josiah Connell MD Plan: Patient will work with PT today. Observe for better pain control. Anticipate discharge home tomorrow afternoon if stable and cleared by PT. Quality VTE Deep Vein Thrombosis/Pulmonary Embolism Present on Admission: No
--- NOTE | 2018-08-22 08:16 | P.PN_ITS ---
Subjective Date Patient Seen: 08/22/18 Time Patient Seen: 08:12 Interval history: Hospital day 2, postop day 1 following left total knee arthroplasty by Dr. Connell. Patient was able to rest off and on during the night. Still having noticeable pain to the left knee. She is taking Dilaudid 2 mg q.3h and ibuprofen and Tylenol. Patient lives on [facility] with her boyfriend. She also has some friends available to help her. She is scheduled to go to [facility] PT next week. She was up with PT yesterday had noticeable increase in pain after ambulation. She does not have stairs at home. Exam Vital Signs (past 8 hours): - 08/22/18 04:08 08/22/18 07:45 Temperature 98.8 F 98.7 F Pulse Rate 99 H 101 H Respiratory Rate 18 18 Blood Pressure 153/78 H 150/72 H Pulse Oximetry 97 99 Fraction of Inspired Oxygen 21 Oxygen Delivery Method CPAP Oxygen Flow Rate 0 Narrative Exam Narrative: Alert, oriented no acute distress resting in bed. Left leg. Paul wrap an Aquacel dressing left knee is dry without drainage or inflammation. Mild swelling of left calf. Calf is soft and nontender. Good pulses distally. Objective Labs Result Diagrams: 08/22/18 05:23 Labs: Laboratory Results - last 24 hr 08/22/18 05:23 Hgb 13.5 Hct 41.4 Assessment & Plan Post-op Postoperative Procedures Operation Date: 08/21/18 10:30 Actual Procedures Side Surgeon p Total Knee Arthroplasty Left Josiah Connell MD Plan: Patient will work with PT today. Observe for better pain control. Anticipate discharge home tomorrow afternoon if stable and cleared by PT. Quality VTE Deep Vein Thrombosis/Pulmonary Embolism Present on Admission: No
[2018-08-22] MEDS: ACETAMINOPHEN 325 MG TABLET 975 MG PO ×3 (09:19→20:45)
[2018-08-22] MEDS: clonazePAM 0.5 MG TABLET 2 MG PO ×2 (09:20→20:47)
[2018-08-22] MEDS: ASPIRIN EC 81 MG TABLET PO ×2 (09:20→20:47)
[2018-08-22] MEDS: FUROSEMIDE 40 MG TABLET 80 MG PO (09:21)
[2018-08-22] MEDS: LISINOPRIL 20 MG TABLET PO (09:21)
[2018-08-22] MEDS: METFORMIN HCL 500 MG TABLET 1000 MG PO ×2 (09:22→20:48)
[2018-08-22] MEDS: POTASSIUM CHLORIDE 20 MEQ TAB 40 MEQ PO (09:24)
[2018-08-22] MEDS: SODIUM CHLORIDE 0.9% FLUSH 10 ML IV ×2 (09:24→20:49)
--- NOTE | 2018-08-22 11:20 | CM.DANOTE ---
Patient is a 62 year old female who was admitted on 08/21/18 for Left Total Knee. Pt has [facility] and [facility] for insurance and her PCP is Dr. Payne. EMR was reviewed. Per PT, recommending SNF vs Home pending progress. SW met bedside with pt and explained role and she confirms that she lives with Sig Other in Sunday and is mostly Independent with ADL's at baseline. Pt states she has a hx of LCC on Sunday a few years ago when she had her right knee done and pt is adamant that she will never go to SNF again. Pt denies any hx of HH. Pt preference is to return home with Sig Other to provide assist at d/c and would be agreeable to HH if needed. Plan: SW to follow closely for pt's preference of home with Sig other pending her pain and progress with PT. Pt declining to go to SNF and adamant about going home. RAVI Moreira Discharge Planning/Care Management Advanced directive, confirm from FAMILY Start: 08/21/18 14:33 Freq: Q24H Status: Active Protocol: Document 08/21/18 14:33 YUDY (Rec: 08/21/18 14:33 YUDY [id number]) Advance Directive, confirm on record Time 14:33 Person contacted ayad Copy received No CM Discharge Assessment Start: 08/22/18 11:19 Freq: Status: Active Protocol: Document 08/22/18 11:19 BF (Rec: 08/22/18 11:20 BF [id number]) Discharge Planning Assessment Assigned Medical Billing Associate RAVI Castro Advance Directives? Yes Advance Directives on File No History Provided By Patient Has Patient been admitted in last 30 No days? Prior Living Arrangements Apartment/Condo Household Members significant other Type of transporation used prior to Drives own vehicle admit Independent with ADL's Yes Is patient alert and oriented? Yes Caregiver for Another No Additional Comment Waiting for further PT to determine SNF vs home Whiteboard Updated in Patient Room with Yes name and ext. # of Medical Billing Associate Review Status In Process Please Provide Date Initial DC 08/22/18 Assessment Was Performed Next Review Type Continued Stay Review Pre-Anesthesia Assessment Start: 08/05/18 08:29 Freq: Status: Complete Protocol: Document 08/05/18 08:29 VLJ (Rec: 08/05/18 08:32 VLJ [id number]) Pre-Anesthesia Assessment Patient Also Known As Raya (AKA) Patient Information Reviewed Via Chart Review Phone Assessment Assessment Completed With Patient Primary Care Provider Karlos Payne Seen Specialist in Last 12 Months Yes Specialist Seen Opthamologist/Dietitian Teacher Orthopedist Primary Language [place] Height 170.18 cm Weight 128.367 kg Body Mass Index (BMI) 44.3 Hearing Ability Normal Visual Impairment Partially Limited Visual Assist Glasses Dentition Type Teeth, Missing Full- Upper Barriers to Learning Visual Comment ADHD, PTSD Hx Anesthesia Reactions No Hx Family Anesthesia Reaction No Hx Malignant Hyperthermia No Hx Blood Transfusion Reaction No Smoking Status Former smoker Tobacco type cannabis/marijuana Smoking packs per day 1 how long ago did patient quit smoking 2004 Smoking pack-years 35 Substance Use Type marijuana sedatives Comment Marijuana for pain - smoking/ edible daily Pain Present Pain Reported Comment Left knee, muscles, neck, back Musculoskeletal Symptoms Abnormal Gait Back Pain Difficulty Walking Joint Pain Joint Stiffness Joint Swelling Limited Range of Motion Muscle Cramps Muscle Spasms Muscle Weakness Myalgias Neck Pain Numbness Radiating Pain into Limb Tingling History of Falling (Recent or History of Yes ) Patient is completely paralyzed or No completely immobile Ambulatory Aid Crutches/cane/walker Prosthesis or Orthotic Device Cane Gait/Transferring Weak Impaired Mental Status Oriented to own ability Comment Doesn't use cane in the house Is patient on oxygen? No Does patient have LOPEZ/SOB No Hx Sleep Apnea Yes: Recommend CPAP 06/15/18 CPAP/BIPAP use prescribed and used routinely Will Bring CPAP/BIPAP DOS Yes Comment Takes off CPAP half way during the night Currently Taking a Beta Fermin No Can You Climb a Flight of Stairs Without Yes SOB Hx Chest Pain No Hx SOB No Hx Syncope or Dizziness Yes: occasionally dizzy, when I get dizzy, I need to eat, resolves it Anti-Coagulant Therapy Yes: ASA, instructed to get DC date from doctor Has a Senior Mechanical Design Engineer No Cardiac Testing Yes: Echo, Cardiac cath, Stress '03 - negative per patient Hx Pacemaker/ICD No Pacemaker Rep Required? 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 Marital Status Lives With significant other Prior Living Arrangements Apartment/Condo Number of Floors (Floors) One Floor Number of Stairs To Enter/Railing? One step into apartment, no rail Support System Friend(s) Significant Other Does the Patient Have Assistance After Yes Surgery Patient Discharge Plan Description Return Home Comment Doesn't know how long she will be staying Feels Safe in Current Environment Yes Been Physically Hurt or Threatened By a No Person in Current Environment Do you have thoughts of harming yourself None or others? Are you currently considering suicide? No Do you have a plan to hurt yourself or No Plan others? Do You Have Any Spiritual Beliefs That No May Affect Your HC Choices? Do You Have Any Cultural Practices That No May Affect Your HC Choices? Spiritual Referral In-House Aircraft Restorer Comment Spiritual, I have my own way Who Can We Speak to About Patient's Care Friends & Family Identifying Code for Release of Patient Declined Information Health Care Proxy/Next of Kin Karlos BRADY Health Care Proxy Emergency Contact Name Karlos BRADY Emergency Contact Comment Plans to stay overnight Advance Directives? No: REGISTRATION WILL REQUEST Power of Freight Associate No PAC Instructions Assistance for 24 hours post- op Bring CPAP/BIPAP Do not shave/clip surgical site Durable medical equipment Medications to take/avoid Nasal antibiotic No ETOH/petroleum product on skin DOS NPO Ortho class Post-op transportation Pre-op antibiotic Pre-surgical wash Sensory aids Sturdy shoes/comfortable clothes Do not bring valuables and remove jewelry Comment [place] 0715[place] ferr
--- NOTE | 2018-08-22 11:53 | PT.IPTN ---
Current Diagnoses Morbid (severe) obesity due to excess calories (08/21/18) Generalized anxiety disorder (08/21/18) Anxiety disorder, unspecified (08/21/18) Post-traumatic stress disorder, unspecified (08/21/18) Attention-deficit hyperactivity disorder, unspecified type (08/21/18) Obstructive sleep apnea (adult) (pediatric) (08/21/18) Other chronic pain (08/21/18) Other pulmonary embolism without acute cor pulmonale (08/21/18) Unilateral primary osteoarthritis, left knee (08/21/18) Dorsalgia, unspecified (08/21/18) Fibromyalgia (08/21/18) Surgery Performed Operation Date: 08/21/18 10:30 Actual Procedures p Total Knee Arthroplasty(Left) - Josiah Connell MD Physical Therapy Treatment Note M2 PT-IP Current Condition Start: 08/21/18 16:24 Freq: NEEDED Status: Active Protocol: Document 08/21/18 15:45 AB (Rec: 08/21/18 16:39 AB [id number]) Physical Therapy Current Condition Current Condition Evaluation Date 08/21/18 Treatment Diagnosis s/p L TKA; difficulties in walking Onset Date 08/21/18 Weight Bearing Status Weight Bearing Status Weight Bear as Tolerated M3 PT-IP Subjective Start: 08/21/18 16:24 Freq: NEEDED Status: Active Protocol: Document 08/22/18 11:38 SA (Rec: 08/22/18 11:53 SA [id number]) Subjective Physical Therapy Visit Type Type Treatment Note Visit Start Time 11:05 Visit Stop Time 11:35 Total Visit Minutes 30 Number of MANAGER ASSET Visits 1 Physical Therapy Visit Comments Patient Comments Pt rated L knee pain as 8/10 at rest, stated she would work with PT but couldn't make any promises. Therapy Pain Assessment Pain When Pain Assessed At Rest Pain Present Pain Present Pain Reported Location Left Knee Intensity 8 Scale Used Numeric (1 - 10) Description Acute Pressure Pain Behaviors Facial Grimacing Guarding Wincing Pain Management Techniques Apply Cold Modification of Treatment Re-positioning Timing of Activity with Medications M4 PT-IP Mobility and Gait Start: 08/21/18 16:24 Freq: NEEDED Status: Active Protocol: Document 08/22/18 11:38 SA (Rec: 08/22/18 11:53 SA [id number]) PT-Bed Mobility Assessment Sit to Supine Sit to Supine Contact Guard Assistance Bedrails Scooting Scooting to Edge of Bed Minimal Assistance PT-Transfer Assessment Sit to and From Stand Sit to and from Stand Contact Guard Assistance 1 Person Assistance Use of Upper Extremities Equipment Transfer Assistive Device Gait Belt Front Wheeled Walker Orthotic/Prosthetic Devices or Brace: No Transfers Transfer Destination Bed Chair Transfer Technique Stand Step Pivot Transfer Ability Level of Assist Contact Guard Assistance Comments Mobility Comments Pt with pain as most limiting factor, relies heavily on UEs for WBing and limites LLE weight acceptance. CGA and slow, semental movements with bed mobility and transfers, min cues for safety and technique. Gait Assessment Gait Gait Assistance Required: Contact Guard Assist 1 Person Assist Distance (Feet) 6 Assistive Devices Assistive Device Gait Belt Front Wheeled Walker Orthotic/Prosthetic Devices or Brace: No Gait Deviations General Gait Pattern Antalgic Decreased Stride Length Decreased Feet Clearance Step-to Gait Factors Limiting Gait Function Factors Limiting Gait Function Decreased Activity Tolerance Decreased Sensation Decreased Strength Limited Range of Motion Pain Poor Balance Poor Safety Awareness Comments Gait Comments Pt able to ambulate forward from chair about 4 feet then turned to sit at EOB. Completed lateral stepping back to top of bed with CGA- Min A and slow movements. M5 PT-IP Objective Assessments Start: 08/21/18 16:24 Freq: NEEDED Status: Active Protocol: Document 08/21/18 15:45 AB (Rec: 08/21/18 16:39 AB [id number]) Orientation Orientation/Cognition Level of Alertness Alert Orientation Name Age Month Place Situation Language Function Ability No Deficits Noted Safety Awareness Understands Safety Issues Gross Range of Motion Lower Extremity ROM Assessment Left Impaired Impairments L knee flexion ~ 30 deg with pain inhibiting movement Strength Lower Extremity Strength Assessment Left Impaired Knee 3-/5 Sensation Assessment Sensation Gross Sensation Right LE Impaired Sensation Description Numbness Comments Sensation Comments stated that due to R knee's previous surgery, she has nerve damage and RLE is very sensitive and has numbness Muscle Tone Muscle Tone WNL Yes M6 PT-IP Treatment Start: 08/21/18 16:24 Freq: NEEDED Status: Active Protocol: Document 08/22/18 11:38 SA (Rec: 08/22/18 11:53 SA [id number]) Physical Therapy Treatment Exercises Exercises Ankle Pumps Gluteal Sets Quad Sets Seated Knee Flexion/Extension Education Education Provided Precautions Weight Bearing Status Safety M7 PT-IP Assessment and Plan Start: 08/21/18 16:24 Freq: NEEDED Status: Active Protocol: Document 08/22/18 11:38 SA (Rec: 08/22/18 11:53 SA [id number]) PT Summary Assessment and Plan Potential Rehabilitation Potential Fair Status of Condition at Evaluation Evolving Summary Assessment Summary Pt with pain as most limiting factor, limits knee flexion and WBing activity. Encouraged pt to get up with staff more frequently and reviewed exercises in bed. Nursing aware of pain levels and medications were provided but pt states medications are not working. Frequency of Treatment Frequency Of Treatment Twice a Day Recommendations To Nursing Amount of Assist Needed 1 Person Assist Discharge Recommendations PT Discharge Recommendations Home with 12/02 Assist SNF Rehab Outpatient PT
[2018-08-22] MEDS: IBUPROFEN 600 MG TABLET PO ×2 (11:57→18:09)
--- NOTE | 2018-08-22 14:10 | CM.DPNOTE ---
According to therapy team, pt having pain management issues and might benefit from SNF. Met w/pt today, reviewed insurance coverage and DCP; pt remains adamant that she will not DC to SNF. She has been to SNF multiple times in the past and will not return. Pt agreeable to Home Health if needed but planned to attend outpt appointments. Pt states Karlos or heike (SO) will not leave my side. Following closely for coordination of safe DCP. JW
--- NOTE | 2018-08-22 14:35 | PT.IPTN ---
Current Diagnoses Morbid (severe) obesity due to excess calories (08/21/18) Generalized anxiety disorder (08/21/18) Anxiety disorder, unspecified (08/21/18) Post-traumatic stress disorder, unspecified (08/21/18) Attention-deficit hyperactivity disorder, unspecified type (08/21/18) Obstructive sleep apnea (adult) (pediatric) (08/21/18) Other chronic pain (08/21/18) Other pulmonary embolism without acute cor pulmonale (08/21/18) Unilateral primary osteoarthritis, left knee (08/21/18) Dorsalgia, unspecified (08/21/18) Fibromyalgia (08/21/18) Surgery Performed Operation Date: 08/21/18 10:30 Actual Procedures p Total Knee Arthroplasty(Left) - Josiah Connell MD Physical Therapy Treatment Note M2 PT-IP Current Condition Start: 08/21/18 16:24 Freq: NEEDED Status: Active Protocol: Document 08/21/18 15:45 AB (Rec: 08/21/18 16:39 AB [id number]) Physical Therapy Current Condition Current Condition Evaluation Date 08/21/18 Treatment Diagnosis s/p L TKA; difficulties in walking Onset Date 08/21/18 Weight Bearing Status Weight Bearing Status Weight Bear as Tolerated M3 PT-IP Subjective Start: 08/21/18 16:24 Freq: NEEDED Status: Active Protocol: Document 08/22/18 14:27 SA (Rec: 08/22/18 14:35 SA [id number]) Subjective Physical Therapy Visit Type Type Treatment Note Visit Start Time 13:50 Visit Stop Time 14:13 Total Visit Minutes 23 Number of PANELBEATER Visits 2 Physical Therapy Visit Comments Patient Comments Pt reports decreased knee pain this PM, stating that ibuprophen working better than dilaudid, agreeable to PT. Therapy Pain Assessment Pain When Pain Assessed During Mobility Pain Present Pain Present Pain Reported Location Left Knee Intensity 5 Scale Used Numeric (1 - 10) Pain Management Techniques Apply Cold Modification of Treatment Re-positioning Timing of Activity with Medications M4 PT-IP Mobility and Gait Start: 08/21/18 16:24 Freq: NEEDED Status: Active Protocol: Document 08/22/18 14:27 SA (Rec: 08/22/18 14:35 SA [id number]) PT-Bed Mobility Assessment Supine to Sit Supine to Sit Contact Guard Assistance Sit to Supine Sit to Supine Contact Guard Assistance Bedrails Scooting Scooting to Edge of Bed Contact Guard Assistance PT-Transfer Assessment Sit to and From Stand Sit to and from Stand Contact Guard Assistance 1 Person Assistance Use of Upper Extremities Equipment Transfer Assistive Device Gait Belt Front Wheeled Walker Orthotic/Prosthetic Devices or Brace: No Transfers Transfer Destination Bed Bedside Commode Transfer Technique Stand Step Pivot Transfer Ability Level of Assist Contact Guard Assistance Comments Mobility Comments Pt with CGA for bed moability and transfers, able to use RLE to lift LLE over EOB for Supine<>sit. Decreased pain levels and improving mobility. PT agreeable to use bathroom with staff rather than BSC from now on as her mobility has improved. Gait Assessment Gait Gait Assistance Required: Contact Guard Assist 1 Person Assist Distance (Feet) 65 Assistive Devices Assistive Device Gait Belt Front Wheeled Walker Orthotic/Prosthetic Devices or Brace: No Gait Deviations General Gait Pattern Antalgic Decreased Stride Length Decreased Feet Clearance Step-to Gait Factors Limiting Gait Function Factors Limiting Gait Function Decreased Activity Tolerance Decreased Strength Limited Range of Motion Pain Comments Gait Comments Improving gait quality and distance, with pt able to correct posture and decrease WBing through UEs. Cues for increasing R knee flexion during gait. M5 PT-IP Objective Assessments Start: 08/21/18 16:24 Freq: NEEDED Status: Active Protocol: Document 08/21/18 15:45 AB (Rec: 08/21/18 16:39 AB [id number]) Orientation Orientation/Cognition Level of Alertness Alert Orientation Name Age Month Place Situation Language Function Ability No Deficits Noted Safety Awareness Understands Safety Issues Gross Range of Motion Lower Extremity ROM Assessment Left Impaired Impairments L knee flexion ~ 30 deg with pain inhibiting movement Strength Lower Extremity Strength Assessment Left Impaired Knee 3-/5 Sensation Assessment Sensation Gross Sensation Right LE Impaired Sensation Description Numbness Comments Sensation Comments stated that due to R knee's previous surgery, she has nerve damage and RLE is very sensitive and has numbness Muscle Tone Muscle Tone WNL Yes M6 PT-IP Treatment Start: 08/21/18 16:24 Freq: NEEDED Status: Active Protocol: Document 08/22/18 14:27 SA (Rec: 08/22/18 14:35 SA [id number]) Physical Therapy Treatment Exercises Exercises Ankle Pumps Gluteal Sets Quad Sets Seated Knee Flexion/Extension Education Education Provided Precautions Weight Bearing Status Safety M7 PT-IP Assessment and Plan Start: 08/21/18 16:24 Freq: NEEDED Status: Active Protocol: Document 08/22/18 14:27 SA (Rec: 08/22/18 14:35 SA [id number]) PT Summary Assessment and Plan Potential Rehabilitation Potential Good Status of Condition at Evaluation Evolving Summary Assessment Summary Pt with improved pain management this afternoon, progressing mobility and gait with pt to d/c use of BSC and walk to/from bathroom with staff. Frequency of Treatment Frequency Of Treatment Twice a Day Recommendations To Nursing Amount of Assist Needed 1 Person Assist Discharge Recommendations PT Discharge Recommendations Home with 12/02 Assist SNF Rehab Outpatient PT
--- NOTE | 2018-08-22 17:58 | PC.NURSE ---
Addendum entered by Dulce Maria Alaniz R.N. 08/22/18 21:46: Pt resting at intervals. Assisted to BR w/o incidence. HL intact/patent. Med x 2 for discomfort. Stable post op course. Call light w/in reach. Continue w/plan of care. Original Note: Pt resting at intervals. Lungs clear, SpO2 98% HL LFA intact/patent. Aquacell dsg to left knee CDI. Stable post op course. Call light w/in reach, bed alarm on for pt safety.
[2018-08-22] MEDS: LEVOTHYROXINE 100 MCG TABLET 200 MCG PO (21:00)
[2018-08-23] MEDS: IBUPROFEN 600 MG TABLET PO ×2 (00:37→06:44)
[2018-08-23 00:49] VITALS: BP 107/54; PULSE 85; RESP 18; TEMP 36.7; O2SAT 95
--- NOTE | 2018-08-23 02:05 | PC.NURSE ---
Addendum entered by Candice Lozano R.N. 08/23/18 05:53: Patient slept most of night. Up to bathroom again this morning and states pain is 4/10. Too early for Ibuprofen and doesn't want to take Dilaudid so medicated with morning scheduled dose of Tylenol; ice pack applied. Original Note: 0045 Patient is alert and oriented. Breath sounds CTA with RA sat of 98%. HRR. Denies nausea. BT present and is passing flatus. Up to bathroom with walker and SBA and does well although very slow. Denies dysuria, frequency or urgency. Independent with bed mobility. Dressing to left knee is CDI. Noted to be edematous with bruising laterally. Chronic bilateral LE edema right now > left. CMS is intact. Refusing SCD's tonight so reminded to ankle wave when awake. States pain is 5/10 so medicated with Ibuprofen (her choice), and ice applied. Fall risk score is high and bed alarm is activated.
[2018-08-23] MEDS: ACETAMINOPHEN 325 MG TABLET 975 MG PO (05:50)
--- NOTE | 2018-08-23 08:38 | PM.DS.1 ---
History of Present Illness Date Patient Seen: 08/23/18 Chief complaint: [id number] LEFT TOTAL KNEE ARTHROPLASTY Narrative: Patient seen bedside status post left total knee arthroplasty on 08/21/[address] Connell. Patient is postop day 2. She is doing well, her pain is well controlled and she has been up and around with physical therapy. She would like to go home. She denies chest pain shortness of breath numbness tingling and calf pain. Discharge Providers Date of admission: 08/21/18 07:39 Primary care physician: Karlos Payne MD Consults: 08/21/18 12:36 Consult to Discharge Planning Routine Comment: Consult to Physical Therapy Evaluate & Treat Comment: Physician Instructions: postop TKA protocol Consult to Respiratory Therapy Evaluate & Treat Comment: Physician Instructions: Evaluate and treat Discharge provider: Aby Knutson PA-C Discharge Date: 08/23/18 Summary Discharge Diagnosis: Left knee osteoarthritis Hospital Course: Patient was admitted to the hospital status post left total knee arthroplasty on 08/21/[address] Connell. Patient tolerated the procedure well with no major complications. Patient was transition to the acute care floor and was placed on the standard replacement pathway and protocol. She was seen by Physical therapy who recommended that she be discharged home. Patient was stable and ready for discharge on 08/23/2018. Status at Discharge Cognitive/behavioral status at discharge: Alert and oriented x3 Functional status at discharge: uses cane/walker Overall status at discharge: patient is progressing back to baseline Time Spent with Patient Less than 30 minutes Exam Vital Signs (past 8 hours): - 08/23/18 00:49 Temperature 98.0 F Pulse Rate 85 Respiratory Rate 18 Blood Pressure 107/54 L Pulse Oximetry 95 Fraction of Inspired Oxygen 21 Oxygen Delivery Method Room Air Oxygen Flow Rate 0 Narrative Exam Narrative: Well-developed well-nourished no acute distress. Alert oriented x3. Dressing on left knee is clean dry and intact with no signs of drainage. No erythema minimal generalized swelling around the joint. Calf is soft and compressible. Full range of motion at the ankle. Neurovascularly intact in the left lower extremity. Objective Labs Result Diagrams: 08/22/18 05:23 Discharge Plan Discharge Plan Patient Disposition: Home Discharge Med Rec/Prescriptions Prescriptions: New acetaminophen 325 mg Tablet 975 mg PO TID Qty: 0 RF: 0 aspirin 81 mg Tablet,Delayed Release (Dr/Ec) 81 mg PO BID Qty: 0 RF: 0 hydromorphone 2 mg Tablet 2 mg PO Q4-6H PRN (Reason: pain) Qty: 40 RF: 0 hydroxyzine pamoate [Vistaril] 50 mg capsule 50 mg PO QID PRN (Reason: muscle spasm) Qty: 60 RF: 0 Continue epinephrine 0.3 MG/0.3 ML auto-injector 0.3 mg IJ PRN PRN (Reason: Anaphylaxis) Qty: 0 RF: 0 metformin [Glucophage] 500 mg tablet 1,000 mg PO BID Qty: 360 RF: 3 furosemide [Lasix] 80 mg tablet 80 mg PO Q DAY Qty: 90 RF: 3 lisinopril 20 mg tablet 20 mg PO QDAY Qty: 90 RF: 3 levothyroxine 200 mcg tablet 200 mcg PO DAILY Qty: 90 RF: [address] See Label Instructions .ROUTE .COMPLEX Qty: 1 RF: 0 potassium chloride 20 mEq tablet extended release 40 meq PO DAILY Qty: 60 RF: 5 multivitamin Tablet 1 tab PO DAILY RF: 0 cholecalciferol (vitamin D3) [Vitamin D3] 2,000 unit Capsule 2,000 unit PO DAILY RF: 0 clonazepam 2 mg tablet 2 mg PO BID RF: 0 Respironics Dreamstation Auto CPAP Qty: 1 RF: 0 ibuprofen 200 mg tablet 400 mg PO BID RF: 0 Discontinued aspirin 325 mg tablet 325 mg PO DAILY RF: 0 Follow up/Referrals: Karlos Payne MD [Primary Care Provider] - Josiah Connell MD [Physician] - (Follow up on 08/26/18 with Kailey White PA-C at the [facility] office.) Provider Discharge Instructions Diet: Carb-consistent/Diabetic Activity: Weightbearing as tolerated, use walker until cleared by physical therapy. Cold/Heat Therapy: Apply ice to surgical site 20 minutes at a time at least hourly while awkae Skin/Wound/Dressing Care Report to your healthcare provider any signs of infection, such as:: chills, fever, night sweats, increased pain, unusual drainage and unusual redness Visit Report/Discharge Packet Instructions: DI for Knee Replacement Visit Report Forms: Stroke Signs & Symptoms Discharge Data Primary Care Provider: Karlos Payne Attending Provider: Josiah Connell Admit Date/Time: 08/21/18 07:39 Quality VTE Deep Vein Thrombosis/Pulmonary Embolism Present on Admission: No
[2018-08-23] MEDS: ASPIRIN EC 81 MG TABLET PO (08:52)
[2018-08-23] MEDS: LISINOPRIL 20 MG TABLET PO (08:52)
[2018-08-23] MEDS: METFORMIN HCL 500 MG TABLET 1000 MG PO (08:52)
[2018-08-23] MEDS: FUROSEMIDE 40 MG TABLET 80 MG PO (08:52)
[2018-08-23] MEDS: POTASSIUM CHLORIDE 20 MEQ TAB 40 MEQ PO (08:53)
[2018-08-23] MEDS: SODIUM CHLORIDE 0.9% FLUSH 10 ML IV (08:53)
[2018-08-23] MEDS: clonazePAM 0.5 MG TABLET 2 MG PO (08:55)
[2018-08-23 09:00] VITALS: BP 127/69; PULSE 94; RESP 18; TEMP 36.4; O2SAT 98
--- NOTE | 2018-08-23 09:30 | PT.IPTN ---
Current Diagnoses Morbid (severe) obesity due to excess calories (08/21/18) Generalized anxiety disorder (08/21/18) Anxiety disorder, unspecified (08/21/18) Post-traumatic stress disorder, unspecified (08/21/18) Attention-deficit hyperactivity disorder, unspecified type (08/21/18) Obstructive sleep apnea (adult) (pediatric) (08/21/18) Other chronic pain (08/21/18) Other pulmonary embolism without acute cor pulmonale (08/21/18) Unilateral primary osteoarthritis, left knee (08/21/18) Dorsalgia, unspecified (08/21/18) Fibromyalgia (08/21/18) Surgery Performed Operation Date: 08/21/18 10:30 Actual Procedures p Total Knee Arthroplasty(Left) - Josiah Connell MD Physical Therapy Treatment Note M2 PT-IP Current Condition Start: 08/21/18 16:24 Freq: NEEDED Status: Active Protocol: Document 08/21/18 15:45 AB (Rec: 08/21/18 16:39 AB [id number]) Physical Therapy Current Condition Current Condition Evaluation Date 08/21/18 Treatment Diagnosis s/p L TKA; difficulties in walking Onset Date 08/21/18 Weight Bearing Status Weight Bearing Status Weight Bear as Tolerated M3 PT-IP Subjective Start: 08/21/18 16:24 Freq: NEEDED Status: Active Protocol: Document 08/23/18 09:25 GGD (Rec: 08/23/18 10:59 GGD [id number]) Subjective Physical Therapy Visit Type Type Treatment Note Visit Start Time 09:00 Visit Stop Time 09:25 Total Visit Minutes 25 Number of PENS AND PENCILS DIPPER Visits 3 Physical Therapy Visit Comments Patient Comments Pt states pain is better and hopes to D/C home. Therapy Pain Assessment Pain When Pain Assessed During Mobility Pain Present Pain Present Pain Reported Location Left Knee Intensity 4 Scale Used Numeric (1 - 10) M4 PT-IP Mobility and Gait Start: 08/21/18 16:24 Freq: NEEDED Status: Active Protocol: Document 08/23/18 09:25 GGD (Rec: 08/23/18 10:59 GGD [id number]) PT-Bed Mobility Assessment Supine to Sit Supine to Sit Contact Guard Assistance Bedrails Sit to Supine Sit to Supine Contact Guard Assistance Scooting Scooting to Edge of Bed Contact Guard Assistance PT-Transfer Assessment Sit to and From Stand Sit to and from Stand Contact Guard Assistance 1 Person Assistance Use of Upper Extremities Equipment Transfer Assistive Device Gait Belt Front Wheeled Walker Orthotic/Prosthetic Devices or Brace: No Transfers Transfer Destination Bed Transfer Ability Level of Assist Contact Guard Assistance Comments Mobility Comments Pt used R LE to lift LLE for bed mobility. Gait Assessment Gait Gait Assistance Required: Contact Guard Assist 1 Person Assist Distance (Feet) 100 Assistive Devices Assistive Device Gait Belt Front Wheeled Walker Orthotic/Prosthetic Devices or Brace: No Gait Deviations General Gait Pattern Antalgic Decreased Stride Length Decreased Feet Clearance Step-to Gait Factors Limiting Gait Function Factors Limiting Gait Function Decreased Activity Tolerance Decreased Strength Limited Range of Motion Pain M5 PT-IP Objective Assessments Start: 08/21/18 16:24 Freq: NEEDED Status: Active Protocol: Document 08/21/18 15:45 AB (Rec: 08/21/18 16:39 AB [id number]) Orientation Orientation/Cognition Level of Alertness Alert Orientation Name Age Month Place Situation Language Function Ability No Deficits Noted Safety Awareness Understands Safety Issues Gross Range of Motion Lower Extremity ROM Assessment Left Impaired Impairments L knee flexion ~ 30 deg with pain inhibiting movement Strength Lower Extremity Strength Assessment Left Impaired Knee 3-/5 Sensation Assessment Sensation Gross Sensation Right LE Impaired Sensation Description Numbness Comments Sensation Comments stated that due to R knee's previous surgery, she has nerve damage and RLE is very sensitive and has numbness Muscle Tone Muscle Tone WNL Yes M6 PT-IP Treatment Start: 08/21/18 16:24 Freq: NEEDED Status: Active Protocol: Document 08/23/18 09:25 GGD (Rec: 08/23/18 10:59 GGD [id number]) Physical Therapy Treatment Exercises Exercises Ankle Pumps Quad Sets Heel Slides Seated Knee Flexion/Extension M7 PT-IP Assessment and Plan Start: 08/21/18 16:24 Freq: NEEDED Status: Active Protocol: Document 08/23/18 09:25 GGD (Rec: 08/23/18 10:59 GGD [id number]) PT Summary Assessment and Plan Summary Assessment Summary Pt improving with mobility. She did have heavy use of UE on walker for gait. She had increase in pain with gait. She is safe for home D/C when medically stable. Frequency of Treatment Frequency Of Treatment Twice a Day Treatment Plan Physical Therapy Treatment Plan Bed Mobility Training Transfer Training Gait Training Therapeutic Exercise Balance Retraining Post Op Education Discharge Planning Hot or Cold Pack Neuromuscular Re-ed Coordination Retraining Manual Therapy Recommendations To Nursing Amount of Assist Needed 1 Person Assist Discharge Recommendations PT Discharge Recommendations Home with Assistance Outpatient PT
--- NOTE | 2018-08-23 13:02 | PC.NURSE ---
Day Shift- Pt ready for discharge, worked with PT. Left knee aquacel dressing CDI. Pain controlled with prn Ibuprofen and scheduled Tylenol. Pain 2-3/10 dull aching, ice pack prn. Pt states has all belongings, prescription for PRN Dilaudid and PRN Vistaril given to pt. Pt's present in room and will drive pt home. Plan to take [address] to [facility], ferry pass given. Reviewed written discharge instructions from discharge summary packet. Reviewed but not limited to pain management, follow up appointment, mobility, S/S of infection, preventing constipation, leave dressing in place. Pt states passing lots of flatus and feels a BM will be soon. Enc po water intake. Pt left unit via wheelchair in no distress at 1255 with and CREDIT ASSESSMENT ANALYST.
== END 2018-08-23 12:55 | disposition home or self-care (01) | DRG 470 ==
PROVIDERS: Admitting Provider Orthopaedic Surgery; Family Provider Student in an Organized Health Care Education/Training Program; PCP Student in an Organized Health Care Education/Training Program; Visit Provider Orthopaedic Surgery
PROC: 0SRD0JZ Replacement of Left Knee Joint with Synthetic Substitute, Open Approach (ICD-10-PCS; CPT 27447; principal; 2018-08-21 10:30)
DX: M17.12 Unilateral primary osteoarthritis, left knee (principal); Z68.41 Body mass index [BMI] 40.0-44.9, adult; Z96.651 Presence of right artificial knee joint; M79.7 Fibromyalgia; E11.9 Type 2 diabetes mellitus without complications; I10 Essential (primary) hypertension; E03.9 Hypothyroidism, unspecified; Z87.891 Personal history of nicotine dependence; Z79.84 Long term (current) use of oral hypoglycemic drugs; E66.01 Morbid (severe) obesity due to excess calories; M21.162 Varus deformity, not elsewhere classified, left knee
CPT/HCPCS: 36415; 73560; 82962; 85014; 85018; 94760; 94762; 97110; 97116; 97162; 97530; C1776; C9290; J1170; J1200; J2250; J2405; J2704; J3010

== ENCOUNTER → 2018-10-17 11:39 | Outpatient (CLI) | payer MEDICARE, OTHER, SELFPAY ==
[2018-08-21 14:30] VITALS: BMI 44.7
[2018-10-17 12:43] LABS: BUN Creatinine Ratio 22.5 (6-22); Blood Urea Nitrogen 27 mg/dL (7-17); Calcium 9.8 mg/dL (8.4-10.2); Carbon Dioxide 30 mmol/L (22-32); Chloride 99 mmol/L (98-107); Estimated Glomerular Filt Rate 45.7 mL/min (>60); Glucose 146 mg/dL (80-110); HEMOLYSIS < 15 (0-50); Potassium 4.6 mmol/L (3.4-5.1); Sodium 139 mmol/L (137-145)
[2018-10-17 14:51] LABS: Vitamin D 25 Hydroxy (D3) 31.9 ng/mL (30.0-100.0)
== END ==
PROVIDERS: PCP Student in an Organized Health Care Education/Training Program; Visit Provider Student in an Organized Health Care Education/Training Program
DX: R55 Syncope and collapse (principal); E55.9 Vitamin D deficiency, unspecified; Z79.899 Other long term (current) drug therapy
CPT/HCPCS: 36415; 80048; 82306

== ENCOUNTER → 2018-10-31 09:13 | Outpatient (CLI) | payer MEDICARE, OTHER, SELFPAY ==
[2018-08-21 14:30] VITALS: BMI 44.7
--- NOTE | 2018-11-21 08:54 | PM.CARDMON.1 ---
Smt Machine Operator Report Referral & Results Date Patient Seen: 10/31/18 Requesting provider: Karlos Payne Indication: Dizziness Duration of monitoring (days): 14 Diary information: No patient diary entries were present 24 patient triggered events associated with sinus rhythm, PACs, PVCs, SVT, and a run of ventricular tachycardia Data: Minimum heart rate identified was 65 beats per minute at 02:46 on 11/09/2018 Maximum sinus heart rate was 139 beats per minute at 15:40 on 11/06/2018 Maximum overall heart rate was 235 beats per minute at 00:50 on 11/03/2018 during a 6 beat run of what appears to be ventricular tachycardia. The computer identified to other beats of ventricular tachycardia however looking at the tracings it would appear there was a 10 beat run of an altered interventricular conduction that looks to be supraventricular in origin rather than ventricular tachycardia although difficult to be certain given the single strip and single lead. Patient also had 90 runs of supraventricular tachycardia the fastest being 222 beats per minute. Reviewing the computer identified strips for the episodes of SVT several limb appeared to be sinus tachycardia versus true SVT and others may be atrial tachycardia as well. Patient did indeed have true SVT at times however but were all very very short in duration. (8-10 beats) Impression: Patient with brief episodes of SVT. Single episode of ventricular tachycardia (6 beats). Other dysrhythmias identified by the computer are probably not significant and not true dysrhythmias. Clinical correlation suggested
== END ==
PROVIDERS: PCP Student in an Organized Health Care Education/Training Program; Visit Provider Student in an Organized Health Care Education/Training Program
DX: R42 Dizziness and giddiness (principal); R55 Syncope and collapse
CPT/HCPCS: 0296T; 0298T

== ENCOUNTER → 2018-11-14 14:24 | Outpatient (CLI) | payer MEDICARE, OTHER, SELFPAY ==
[2018-08-21 14:30] VITALS: BMI 44.7
--- NOTE | 2018-11-14 14:29 | DI.ECHO.S_ITS ---
[place] [facility]---------+ [facility] +---------+ : : [address] : [address] : : : : [id number] : : : : Phone: [phone]+ Echocardiogram Report + + :Name: STEPHEN ACUNA Study Date: 11/14/2018 Height: 67 in : :[facility] Exam Location: [facility] Weight: 275 lb : : Gender: Female BSA: 2.3 m2 : :: 1955 Age: 62 yrs BP: 128/88 mmHg: :Reason For Study: PERIPHERAL SWELLING, DIZZINESS : : Performed By: Toby Montana : :Referring: JORDY CORBIN : + + Interpretation Summary 1) Normal left ventricular thickness, size, wall motion, and systolic function (EF 65-70%). 2) Normal right ventricular size and function. 3) No significant valvular abnormalities. 4) No prior Echo available for comparison. Procedure: A two-dimensional transthoracic echocardiogram with color flow and Doppler was performed. The study quality was technically adequate. Comparison is made with the echocardiogram of 08/09/07. The patient was in normal sinus rhythm during the exam. Left Ventricle: The left ventricle is normal in size. There is normal left ventricular wall thickness. Trabeculae near apex are visualized. No thrombus is observed. The ejection fraction is estimated to be 65-70%. There are no focal wall motion abnormalities. Diastolic parameters suggest a relaxation abnormality of the left ventricle, consistent with probable normal filling pressures. Right Ventricle: The right ventricle grossly appears normal in size with probable normal systolic function. Atria: Both atria are normal in size. The interatrial septum is intact with no evidence for an atrial septal defect. Mitral Valve: The mitral valve is normal in structure and function. There is trace mitral regurgitation. Aortic Valve: The aortic valve is trileaflet. The aortic valve opens well. There is no aortic valve stenosis. No aortic regurgitation is present. Tricuspid Valve: The tricuspid valve is normal in structure and function. There is mild tricuspid regurgitation. The right ventricular systolic pressure is estimated to be at least 20 mmHg based on an estimated right atrial pressure of 3 mm Hg. Pulmonic Valve: The pulmonic valve is normal in structure and function. There is trace pulmonic regurgitation. Great Vessels: The aortic root is normal size. The dimensions of the ascending aorta are normal. The pulmonary artery is normal size. The IVC is of normal diameter and collapses greater than 50% with a sniff. This suggests a low right atrial pressure of 3 mm Hg. Pericardium/ Pleura There is no pericardial effusion. There is no pleural effusion. MMode/2D Measurements & Calculations LVIDd: 4.6 cm LVOT diam: 2.2 cm LVIDs: 3.6 cm Ao root diam: 3.1 cm FS: 22.9 % Aortic Jxn: 2.1 cm EPSS: 1.1 cm asc Aorta Diam: 3.2 cm IVSd: 0.84 cm Ao Arch Diam (Prox Trans): 2.3 cm LVPWd: 0.83 cm LV olson. diameter/BSA (cm/m^2): 2.0 LV sys. diameter/BSA (cm/m^2): 1.5 LA dimension: 3.3 cm RA long axis: 4.4 cm LA A2 area: 20.5 cm2 RA area: 11.1 cm2 LA A4 area: 17.4 cm2 RA vol: 23.7 ml LA length (vol): 5.4 cm RA : 10.2 ml/m2 LA vol: 55.6 ml IVC diam: 1.9 cm LA vol index: 24.0 ml/m2 Doppler Measurements & Calculations Ao V2 max: 139.7 cm/sec LVOT Max Panchito: 108.0 cm/sec Ao V2 mean: 107.4 cm/sec LV V1 max P.7 mmHg Ao max P.8 mmHg LV V1 VTI: 22.6 cm Ao mean P.8 mmHg ELVI(I,D): 3.7 cm2 Ao V2 VTI: 22.6 cm ELVI(V,D): 2.9 cm2 sev ratio: 1.00 ELVI indexed to BSA (cm^2/m^2): 1.6 MV E max panchito: 52.0 cm/sec TR max panchito: 206.1 cm/sec MV A max panchito: 84.1 cm/sec TR max P.0 mmHg MV E/A: 0.62 PA V2 max: 67.1 cm/sec Med Peak E' Panchito: 4.9 cm/sec PA V2 mean: 50.2 cm/sec E/E' med: 10.7 PA mean P.1 mmHg Lat Peak E' Panchito: 7.2 cm/sec PA pr(Accel): 59.0 mmHg E/E' lat: 7.2 PA Accel Time: 0.04 sec E/e' average: 9.0 MV dec time: 0.14 sec SV(LVOT): 83.9 ml Reading Physician:05:00 PM
== END ==
PROVIDERS: PCP Student in an Organized Health Care Education/Training Program; Visit Provider Student in an Organized Health Care Education/Training Program
DX: I07.1 Rheumatic tricuspid insufficiency (principal); R55 Syncope and collapse; R60.9 Edema, unspecified; G47.33 Obstructive sleep apnea (adult) (pediatric)
CPT/HCPCS: 93306

== ENCOUNTER → 2018-12-20 10:32 | Outpatient (CLI) | payer MEDICARE, OTHER, SELFPAY ==
[2018-08-21 14:30] VITALS: BMI 44.7
--- NOTE | 2018-12-20 10:36 | DI.RAD.S_ITS ---
PROCEDURE: XR SHOULDER RT MIN 2V INDICATIONS: right shoulder pain TECHNIQUE: 3 views of the shoulder were acquired. COMPARISON: None. FINDINGS: Bones: No fractures or dislocations. No suspicious bony lesions. There is severe acromioclavicular and moderate glenohumeral joint degeneration. Visualized ribs appear intact. Soft tissues: No suspicious soft tissue calcifications. IMPRESSION: Severe degenerative joint disease. Dictated by: Gely Macdonald M.D. on 12/20/2018 at 13:59 Approved by: Gely Macdonald M.D. on 12/20/2018 at 14:01
--- NOTE | 2018-12-20 10:36 | DI.MG.S_ITS ---
BILATERAL DIGITAL SCREENING MAMMOGRAM 3D/2D WITH CAD: 12/20/2018 CLINICAL: Routine screening. Comparison is made to exams dated: 05/17/2010 mammogram and 03/24/2009 mammogram - [facility]. There are scattered fibroglandular elements in both breasts. Current study was also evaluated with a Computer Aided Detection (CAD) system. There are benign calcifications in both breasts. No significant masses, calcifications, or other findings are seen in either breast. There has been no significant interval change. IMPRESSION: There is no mammographic evidence of malignancy. A 1 year screening mammogram is recommended. This exam was interpreted at Station ID: [id number]. NOTE: For mammograms, a report in lay terms will be sent to the patient. Approximately 15% of breast malignancies will not be visualized mammographically. In the management of a palpable breast mass, a negative mammogram must not discourage biopsy of a clinically suspicious lesion. Electronically Signed By: Sincere Lopez M.D. at/rea:12/20/2018 11:51:39 letter sent: Normal Exam ACR BI-RADS Category 2: Benign Finding(s) 3342F
[2018-12-20 13:45] LABS: Thyroid Stimulating Hormone 0.07 uIU/mL (0.47-4.68)
== END ==
PROVIDERS: Family Provider Nurse Practitioner Family; PCP Student in an Organized Health Care Education/Training Program; Visit Provider Student in an Organized Health Care Education/Training Program
DX: Z12.31 Encounter for screening mammogram for malignant neoplasm of breast (principal); M25.511 Pain in right shoulder; M19.011 Primary osteoarthritis, right shoulder; E03.9 Hypothyroidism, unspecified
CPT/HCPCS: 36415; 73030; 77063; 77067; 84443

== ENCOUNTER → 2019-01-28 10:37 | Outpatient (CLI) | payer MEDICARE, OTHER, SELFPAY ==
[2018-08-21 14:30] VITALS: BMI 44.7
--- NOTE | 2019-01-28 11:22 | DI.MRI.S_ITS ---
PROCEDURE: MR SHOULDER RT WO CON INDICATIONS: Right shoulder injuy TECHNIQUE: Noncontrast oblique coronal T2 fast spin echo with fat saturation, oblique sagittal T1 spin echo and T2 fast spin echo with fat saturation, axial T1 spin echo and T2 fast spin echo with fat saturation through the shoulder. COMPARISON: [facility], CR, XR SHOULDER RT MIN 2V, 12/20/2018, 10:57. FINDINGS: Image quality: Degraded by body habitus. Rotator cuff: The supraspinatus, infraspinatus, and subscapularis tendons appear grossly intact throughout. Sagittal images demonstrate no muscle atrophy. Bones and bursae: No bone marrow contusions or fractures. Moderate acromioclavicular joint degeneration. The acromion demonstrates conventional anatomy, without an os acromiale. No pathologic subacromial-subdeltoid or subcoracoid bursal fluid is present. Capsule and soft tissues: In the absence of intra-articular contrast, the labrum and glenohumeral ligaments appear intact. The long head of the biceps tendon demonstrates normal location and morphology. The rotator interval appears normal, without fibrosis. The coracohumeral ligament is normal in thickness. IMPRESSION: 1. Limited examination secondary to body habitus. 2. No definite rotator cuff tear. 3. Acromioclavicular joint osteoarthritis. Dictated by: Segundo Cadena M.D. on 01/28/2019 at 12:16 Approved by: Segundo Caedna M.D. on 01/28/2019 at 12:20
== END ==
PROVIDERS: PCP Student in an Organized Health Care Education/Training Program; Visit Provider Student in an Organized Health Care Education/Training Program
DX: S49.91XA Unspecified injury of right shoulder and upper arm, initial encounter (principal); M25.511 Pain in right shoulder; M19.011 Primary osteoarthritis, right shoulder
CPT/HCPCS: 73221

== ENCOUNTER → 2019-03-10 07:47 | Outpatient (CLI) | payer MEDICARE, OTHER, SELFPAY ==
[2018-08-21 14:30] VITALS: BMI 44.7
--- NOTE | 2019-03-10 | DI.NM.S_ITS ---
PROCEDURE: NM ALESHIA PERF SPECT REST & STR Rest and exercise myocardial perfusion SPECT with gated imaging and ejection fraction RADIOPHARMACEUTICAL: 27.2 mCi Tc-99m sestamibi IV at rest and 24.9 mCi Tc-99m sestamibi IV at peak exercise. A [facility] day-protocol was performed. INDICATIONS: NONSUSTAINED VENTRICULAR TACHY TECHNIQUE: Radiopharmaceutical was injected at peak stress test, and also at rest. SPECT images were obtained. SPECT myocardial perfusion images were displayed in short axis, horizontal long axis, and vertical long axis views. Gated images were reviewed using Kareo software. COMPARISON: None. CARDIAC STRESS: A standard Tyrel treadmill exercise tolerance test was performed by the patient under the supervision of an attending staff. The patient exercised for 2 minutes and 37 seconds raching 4.6 METs; functional aerobic impairment (RADHA) is +40%. Hemodynamic data: There is normal heart rate response to exercise stress. Patient achieved 148% of maximum predicted heart rate at peak exercise. Hypertension at rest (BP 162/104mmHg) and hypertensive response to exercise (BP 210/110mmHg). Symptoms: Patient denied chest pain during exercise. EKG: Sinus rhythm at rest. No diagnostic EKG changes of ischemia. Frequent PVCs, including 5 beat run of non-sustained VT. SVT noted with peak exercise and it appears to be atrial tachycardia but paroxysmal atrial fibrillation can not be excluded. FINDINGS: Raw data: There is good myocardial labeling by radiotracer. No significant motion artifacts. Itpj-ds-aodop ratio is 0.44 (normal is less than 0.38 for sestamibi tracer, and less than 0.50 for thallium tracer). Left ventricle function: Gated images demonstrate normal left ventricle wall thickening. No segmental wall motion abnormality. No transient ischemic dilation; TID is 1.24 (normal less than 1.3). The left ventricle resting end-diastolic volume is 75 mL. Left ventricle stress ejection fraction is 73%; normal values are above 45%. Myocardial perfusion: There is a small mild basal lateral wall fixed defect that resolves with prone imaging suggesting artifact. Shifting artifacts also present during the study. No ischemia or infarction. IMPRESSION: Low risk, probably normal treadmill nuclear stress test from obstructive CAD standpoint. Hypertensive response, non-sustained VT, and SVT with exercise. 1) No perfusion evidence of ischemia or infarction. 2) Normal left ventricular size, wall motion, and systolic function (EF post stress 73%). 3) No ECG evidence of ischemia. 4) PVCs, including 5 beat run of non-sustained VT, noted. SVT noted with peak exercise and it appears to be atrial tachycardia but paroxysmal atrial fibrillation can not be excluded. 5) No angina during the study. 6) Reduced exercise tolerance (4.6 METs, RADHA +40%). 7) Hypertension at rest (BP 162/104mmHg) and hypertensive response to exercise (BP 210/110mmHg). 8) No prior nuclear stress test available for comparison. Dictated by: Samia Lainez MD on 03/11/2019 at 12:56 Approved by: Samia Lainez MD on 03/11/2019 at 13:05
--- NOTE | 2019-03-10 09:27 | PM.TREADMILL ---
Cardiac Stress Test Report Referral & Results Date Patient Seen: 03/10/19 Requesting provider: Samia Lainez Indication: Ventricular tachycardia Rest ECG: Unremarkable Procedure Note: Today following both written and verbal informed consent the patient was exercised according to a standard Tyrel protocol patient went for a total of 2 minutes 37 seconds achieving a maximum heart rate of 230 for maximum systolic blood pressure of 210. This is approximately 4.6 METS. Exercise was terminated at this point because of supraventricular dysrhythmia. Patient was also given Cardiolite through a previously started Hep-Lock IV by the diagnostic imaging staff approximately 1 minute prior to the cessation of exercise. With exercise patient quickly became tachycardic and had frequent PVCs including ventricular couplets triplets and a run of 4. Patient also ultimately developed a narrow complex tachycardia that appears to be SVT with a heart rate of 234. With this patient felt extremely poorly like she was going to pass out. The exercise was discontinued at that point. Fortunately she had been given the Cardiolite approximately 40 seconds prior to this. Patient was returned to the [facility] in the supine position and as she cold down and slow down and blood pressure slowly came down her dysrhythmia slowly resolved. She continued to have brief bursts of a narrow complex tachycardia consistent with SVT as well as frequent PVCs. After 3-4 minutes of monitoring heart rate was 100-110 and clearly sinus with only rare PVCs and PACs. Functional aerobic impairment rates 40% on the sedentary scale Impression: Significant supraventricular tachycardia and dysrhythmia as above. Patient also with significant ventricular dysrhythmia. This is very similar to what was seen in a previously obtained awake overnight monitor. No ST-T changes to suggest ischemia, expected ST segment depression that was upsloping during her SVT. Please see perfusion imaging report as well. Please note: Actual ECG tracings can be found in the PACS system.
--- NOTE | 2019-03-10 09:30 | P.PCN_ITS ---
Cardiac Stress Test Report Referral & Results Date Patient Seen: 03/10/19 Requesting provider: Samai Lainez Indication: Ventricular tachycardia Rest ECG: Unremarkable Procedure Note: Today following both written and verbal informed consent the patient was exercised according to a standard Tyrel protocol patient went for a total of 2 minutes 37 seconds achieving a maximum heart rate of 230 for maximum systolic blood pressure of 210. This is approximately 4.6 METS. Exercise was terminated at this point because of supraventricular dysrhythmia. Patient was also given Cardiolite through a previously started Hep-Lock IV by the diagnostic imaging staff approximately 1 minute prior to the cessation of exercise. With exercise patient quickly became tachycardic and had frequent PVCs including ventricular couplets triplets and a run of 4. Patient also ultimately developed a narrow complex tachycardia that appears to be SVT with a heart rate of 234. With this patient felt extremely poorly like she was going to pass out. The exercise was discontinued at that point. Fortunately she had been given the Cardiolite approximately 40 seconds prior to this. Patient was returned to the [facility] in the supine position and as she cold down and slow down and blood pressure slowly came down her dysrhythmia slowly resolved. She continued to have brief bursts of a narrow complex tachycardia consistent with SVT as well as frequent PVCs. After 3-4 minutes of monitoring heart rate was 100-110 and clearly sinus with only rare PVCs and PACs. Functional aerobic impairment rates 40% on the sedentary scale Impression: Significant supraventricular tachycardia and dysrhythmia as above. Patient also with significant ventricular dysrhythmia. This is very similar to what was seen in a previously obtained library monitor. No ST-T changes to suggest ischemia, expected ST segment depression that was upsloping during her SVT. Please see perfusion imaging report as well. Please note: Actual ECG tracings can be found in the PACS system.
== END ==
PROVIDERS: Family Provider Orthopaedic Surgery; PCP Student in an Organized Health Care Education/Training Program; Visit Provider Internal Medicine Cardiovascular Disease
DX: I47.2 Ventricular tachycardia (principal)
CPT/HCPCS: 78452; 93016; 93017; 93018; A9502

== ENCOUNTER → 2019-04-15 07:26 | Outpatient (CLI) | payer MEDICARE, OTHER, SELFPAY ==
[2018-08-21 14:30] VITALS: BMI 44.7
[2019-04-15 09:12] LABS: Thyroid Stimulating Hormone 0.12 uIU/mL (0.47-4.68)
[2019-04-15 09:44] LABS: BUN Creatinine Ratio 27.1 (6-22); Blood Urea Nitrogen 19 mg/dL (7-17); Calcium 10.2 mg/dL (8.4-10.2); Carbon Dioxide 26 mmol/L (22-32); Chloride 100 mmol/L (98-107); Estimated Glomerular Filt Rate > 60.0 mL/min (>60); Glucose 115 mg/dL (80-110); HEMOLYSIS 22 (0-50); Potassium 4.5 mmol/L (3.4-5.1); Sodium 143 mmol/L (137-145)
[2019-04-15 09:46] LABS: Hemoglobin A1C% w Est Avg Glu 5.8 % (4.0-6.0)
== END ==
PROVIDERS: PCP Student in an Organized Health Care Education/Training Program; Visit Provider Nurse Practitioner Family
DX: E03.9 Hypothyroidism, unspecified (principal); E11.9 Type 2 diabetes mellitus without complications; N17.9 Acute kidney failure, unspecified
CPT/HCPCS: 36415; 80048; 83036; 84443

== ENCOUNTER → 2019-04-24 07:51 | Outpatient (CLI) | payer MEDICARE, OTHER, SELFPAY ==
[2018-08-21 14:30] VITALS: BMI 44.7
[2019-04-24 08:45] LABS: Add Manual Diff / Slide Review NO; Basophils Absolute Auto 100 /uL (0-100); Basophils Percent Auto 0.6 % (0-2); Eosinophils Absolute Auto 200 /uL (0-450); Eosinophils Percent Auto 2.7 % (2-4); Hematocrit 47.3 % (36-46); Hemoglobin 15.6 g/dL (12.0-16.0); Lymphocytes Absolute Auto 2800 /uL (1100-4500); Lymphocytes Percent Auto 29.8 % (25-40); Mean Corpuscular Hemoglobin 28.4 PG (26-34); Mean Corpuscular Volume 86.2 fL (80-100); Monocytes Absolute Auto 700 /uL (0-900); Monocytes Percent Auto 7.9 % (3-14); Neutrophils Absolute Auto 5500 /uL (1500-7000); Platelet Count 228 X10^3/uL (150-400); Red Blood Cell Count 5.48 X10^6/uL (4.0-5.2); Red Cell Distribution Width 14.6 % (11.6-14.8); White Blood Cell Count 9.3 X10^3/uL (4.5-11.0)
[2019-04-24 08:57] LABS: Cholesterol 153 mg/dL (140-199); HDL Cholesterol 47 mg/dL (40-60); LDL Cholesterol Calculated 67 mg/dL (<100); Triglycerides 194 mg/dL (35-150)
[2019-04-24 09:20] LABS: Creatinine Urine Random 30.6 mg/dL
[2019-04-24 09:23] LABS: Microalbumi Creatinin Ratio Ur 19.6 ug/mg CR (<30); Microalbumin Urine Random 0.6 mg/dL (0-1.6)
[2019-04-25 09:08] LABS: Free T3, Triiodothyronine Free 4.58 pg/mL (2.77-5.27); Free T4, Direct Thyroxine 2.61 ng/dL (0.78-2.19)
== END ==
PROVIDERS: Nurse Practitioner Family; PCP Student in an Organized Health Care Education/Training Program; Visit Provider Internal Medicine Cardiovascular Disease
DX: I10 Essential (primary) hypertension (principal); E78.5 Hyperlipidemia, unspecified; R60.0 Localized edema; E11.42 Type 2 diabetes mellitus with diabetic polyneuropathy; E03.9 Hypothyroidism, unspecified; E06.3 Autoimmune thyroiditis
CPT/HCPCS: 36415; 80061; 82043; 82570; 84439; 84443; 84481; 85025

== ENCOUNTER → 2019-05-16 10:10 | Outpatient (CLI) | payer MEDICARE, OTHER, SELFPAY ==
[2018-08-21 14:30] VITALS: BMI 44.7
[2019-05-16 10:37] LABS: Influenza A and B by PCR Rapid Negative (Negative)
== END ==
PROVIDERS: PCP Student in an Organized Health Care Education/Training Program; Visit Provider Student in an Organized Health Care Education/Training Program
DX: R50.9 Fever, unspecified (principal)
CPT/HCPCS: 87502

== ENCOUNTER → 2019-08-22 08:38 | Outpatient (CLI) | payer MEDICARE, OTHER, SELFPAY ==
[2018-08-21 14:30] VITALS: BMI 44.7
--- NOTE | 2019-08-22 08:41 | DI.MRI.S_ITS ---
PROCEDURE: MR ABDOMEN WO/W CON INDICATIONS: ventral hernia vs diastasis. Allergic to CT contrast TECHNIQUE: Coronal HASTE, axial 2D FLASH in- and [id number]; axial breath-hold T2 FSE. Dynamic axial VIBE during the administration of contrast; post-contrast coronal VIBE or 2D FLASH with fat saturation from the hepatic dome to the iliac crests. Optional diffusion weighted imaging and ADC may be performed. COMPARISON: None. FINDINGS: Image quality: Excellent. Lung bases: No basal pleural effusions. Heart size is normal. Solid organs: Liver is normal in size and enhancement. Gallbladder is surgically absent. Biliary system is non dilated. Pancreas is normal in morphology. Spleen is normal in size and enhancement. No adrenal nodules. Both kidneys demonstrate normal size and enhancement, without hydronephrosis. Tiny exophytic bilateral lower pole renal cysts are present. There is a tiny subcapsular cyst in the upper pole of the spleen. Nodes and vessels: No retroperitoneal or mesenteric adenopathy by size criteria. Aorta and inferior vena cava are normal in size. Bowel and peritoneum: Unenhanced bowel loops are normal in caliber. No free fluid. Bones and soft tissues: There is a 1.4 cm midline abdominal wall hernia containing fat. This is cranial to what appears to be a small healed midline incision and possible preperitoneal mesh hernia repair which is partially imaged given [id number] on this study. No fluid in the small hernia sac. No evidence of herniated bowel. Bone marrow is normal in overall signal. IMPRESSION: 1. There is a 1.4 cm fat-containing midline abdominal wall hernia cranial to probable prior ventral hernia repair. No evidence of herniated bowel or inflammatory change. 2. Cholecystectomy. 3. Tiny renal and splenic cysts. Dictated by: Lynda Xie M.D. on 08/22/2019 at 13:50 Approved by: Lynda Xie M.D. on 08/22/2019 at 14:50
== END ==
PROVIDERS: PCP Student in an Organized Health Care Education/Training Program; Visit Provider Surgery
DX: K46.9 Unspecified abdominal hernia without obstruction or gangrene (principal); D73.4 Cyst of spleen; N20.0 Calculus of kidney; Z90.49 Acquired absence of other specified parts of digestive tract
CPT/HCPCS: 74183

== ENCOUNTER → 2019-09-10 08:48 | Outpatient (CLI) | payer MEDICARE, OTHER, SELFPAY ==
[2018-08-21 14:30] VITALS: BMI 44.7
[2019-09-10 10:29] LABS: Free T4, Direct Thyroxine 1.52 ng/dL (0.78-2.19)
[2019-09-10 10:43] LABS: Thyroid Stimulating Hormone 1.87 uIU/mL (0.47-4.68)
== END ==
PROVIDERS: PCP Student in an Organized Health Care Education/Training Program; Referring Provider Student in an Organized Health Care Education/Training Program; Visit Provider Student in an Organized Health Care Education/Training Program
DX: E03.9 Hypothyroidism, unspecified (principal)
CPT/HCPCS: 36415; 84439; 84443

== ENCOUNTER 2019-09-15 09:41 | Day surgery (SDC) | payer MEDICARE, OTHER, SELFPAY ==
[2018-08-21 14:30] VITALS: BMI 44.7
[2019-09-12 12:34] VITALS: BMI 42.5
[2019-09-15] VITALS (8 sets, daily range): BP systolic 162–198; BP diastolic 80–101; PULSE 80–93; RESP 12–20; TEMP 36.1–36.3; O2SAT 93–98; BMI 42.5
[2019-09-15] MEDS: VANCOMYCIN 1,000 MG/200 ML PIGGYBACK 200 MG IV (10:20)
[2019-09-15] MEDS: LACTATED RINGERS 1,000 ML 42 ML IV (10:20)
--- NOTE | 2019-09-15 10:29 | PM.PREOP ---
Pre-operative Note Interval Note History & Physical reviewed/Exam performed by Physician: Yes Changes to H&P: No
[2019-09-15] MEDS: MIDAZOLAM 2 MG/2 ML VIAL IV (10:56)
--- NOTE | 2019-09-15 10:57 | SUR.PREOP ---
Block start time [1044] . Monitoring initiated and maintained throughout procedure. Oxygen and medications given per anesthesiologist instructions. Patient remained stable throughout procedure, no adverse reactions noted. Block end time [1052].
--- NOTE | 2019-09-15 11:08 | SUR.PREOP ---
Informed Dr. Fontanez that patients blood pressure was increased. he is aware. pt also took her beta julián this am. pt states when she is nervous her pressure always goes up. Also informed MD pt had been having vomiting this am and diarrhea.
--- NOTE | 2019-09-15 11:32 | SUR.OPER ---
Lateral on padded OR bed with hutchison bag positioner, head on pillow, gel axillary roll in place, bottom leg bent with gel pad under knee to foot, upper leg straight and supported with pillows. Operative arm secured in shoulder positioning suspension device. non-operative arm secured on padded arm board. Safety belt at hip, tape over blanket securing lower legs.
[2019-09-15] MEDS: BUPIVACAINE 0.5% W/ EPI (PF) 30 ML VIAL INJ (11:42)
[2019-09-15] MEDS: SODIUM CHLORIDE IRRIG SOLUTION 3,000 ML, EPINEPHrine 1 MG IRR ×3 (11:44→11:55)
--- NOTE | 2019-09-15 12:30 | PM.OP.1 ---
Operative Date/Time/Diagnoses Date of procedure: 09/15/19 Time of procedure: 12:30 Pre-op diagnosis: 1. Right shoulder acromioclavicular osteoarthritis 2. Right shoulder impingement syndrome Post-op diagnosis: other (1 and 2 are the same. 3. Type 2 SLAP lesion 4. Glenohumeral degenerative arthritic change) Procedure & Clinicians Procedure: 1. Arthroscopic biceps tenodesis, right shoulder 2. Arthroscopic distal clavicle excision 3. Arthroscopic major debridement Same procedure as scheduled: Yes Indications: The patient is a 63-year-old female who has had significant right shoulder pain. An MRI of the shoulder was of poor quality but appeared to show acromioclavicular osteoarthritis with some impingement. This was confirmed on her examination. She agreed to arthroscopic debridement with distal clavicle excision after discussion the risks benefits and alternatives. Risks discussed included but were not limited to: Failure to improve, stiffness, infection, nerve damage, deep venous thrombosis, pulmonary embolism, stroke, myocardial infarction, permanent paralysis and . Surgeon: Alfredo Stearns Click Yes if Unassisted: Yes Anesthesia Type: General, Peripheral nerve block and Local Operative Notes Findings: 1. Glenohumeral osteoarthrosis with grade 2-3 chondromalacia in the central 1 1/2 cm of the humeral head 2. Widespread fraying of the glenoid labrum with a ?Abe complex? and separation of the biceps from its insertion on the superior aspect of the glenoid 3. Intact peer in glenohumeral ligaments 4. Intact subscapularis 5. Normal appearing biceps tendon except for its insertion 6. Partial tearing of the supraspinatus of low grade articular character 7. Intact infraspinatus 8. Degenerative changes on the inferior humeral head evident in the axillary pouch 9. Intact bursal cuff with minor fraying 10. Type 2 acromion with minimal impingement lesion but large osteophyte at the acromioclavicular joint 11. Acromioclavicular joint with significant arthritic change and osteophytes on both sides of the joint. 12. Exam under anesthesia notable for full range of motion and no evidence for pathologic laxity. Closure Type: primary Specimen(s): none sent Prosthetic devices, grafts, tissues, transplants, or devices: None. Estimated Blood Loss (mL): 10 Blood products transfused: none Procedure in detail: Patient was seen in the preoperative area where she identified her right shoulder as the operative site and this was marked with my initials. She received preoperative antibiotics and underwent an interscalene block. She was then transferred to the operating room and placed on the operating room table in the supine position where she underwent induction with general anesthetic. A preforming machine operator-out was performed. She was then repositioned in the left lateral decubitus position with an axillary roll and padding for all pressure points. She was secured in this position using the hutchison bag and adhesive tape. The right arm was prepared from fingertips to the base the neck with ChloraPrep in the usual fashion and draped through sterile drapes. The arm was placed in 10 lb of balanced skin suspension. Subcutaneous landmarks were outlined on the skin with a marking pen and portal sites selected. The posterior portal was created for the arthroscope and diagnostic arthroscopy ensued with result given above. During diagnostic arthroscopy an anterior working portal was created and the shaver inserted to perform debridement of the arthritic lesion on the humeral head and the significant fraying of the labrum. The arthroscope was then withdrawn and placed in the subacromial space through the posterior portal. A lateral portal was created for instrumentation. Bursectomy was performed for visualization. The soft tissues were removed from the undersurface of the acromion using the electrocautery and the type 2 acromion converted to a type 1 acromion using the cutting block technique. This included the large osteophytes at the acromioclavicular joint. The distal 8-10 mm of clavicle was then removed to address the arthritic change there. At this point the arthroscope was reinserted into the glenohumeral joint through the posterior portal and a working cannula placed anteriorly. A percutaneous mattress suture was placed across the biceps tendon through the rotator interval using a suture shuttle technique. The biceps was then cut. The stump was debrided to a stable base. I then replaced the arthroscope in the subacromial space and brought the working cannula in from lateral. The sutures were identified and tied to complete the biceps tenodesis. At this point all arthroscopic equipment was removed, the wounds were closed with 4 0 Monocryl and Steri-Strips. The subacromial space was injected with 10 mL of 0.5% Marcaine for postoperative pain control. Dressings a sterile 4x4s, and ABD and adhesive tape were applied. Patient's arm was placed in a sling and she was allowed to awaken from anesthesia, and transported to the recovery room in good condition having tolerated the procedure well. Complications: none Post-operative Condition: stable Disposition: PACU Plan for aftercare: The patient will be maintained on a standard subacromial decompression protocol with the additional restriction of lifting no more than 1 lb with her biceps on the right side for the 1st 4 weeks.
== END 2019-09-15 13:28 | disposition home or self-care (01) ==
PROVIDERS: PCP Student in an Organized Health Care Education/Training Program; Referring Provider Orthopaedic Surgery; Visit Provider Orthopaedic Surgery
PROC: (CPT 29805; principal; 2019-09-15 12:45)
DX: M19.011 Primary osteoarthritis, right shoulder (principal); M75.41 Impingement syndrome of right shoulder; S43.431A Superior glenoid labrum lesion of right shoulder, initial encounter; M25.711 Osteophyte, right shoulder; M94.211 Chondromalacia, right shoulder
CPT/HCPCS: 29828; 29823; 29824; 29826; 64450; 93005; J0171; J2250; J2405; J2704

== ENCOUNTER → 2020-01-20 13:39 | Outpatient (CLI) | payer MEDICARE, OTHER, SELFPAY ==
[2018-08-21 14:30] VITALS: BMI 44.7
--- NOTE | 2020-01-20 13:40 | DI.CT.S_ITS ---
PROCEDURE: CT ABDOMEN PELVIS WO CON INDICATIONS: Abdominal pain TECHNIQUE: After the administration of oral contrast, 5 mm thick sections acquired from the diaphragms to the symphysis. 5 mm coronal and sagittal reformats were performed. For radiation dose reduction, the following was used: automated exposure control, adjustment of mA and/or kV according to patient size. COMPARISON: None. FINDINGS: Image quality: Excellent. ABDOMEN: Lung bases: Lung bases are clear. Heart size is normal. Solid organs: Liver is normal in size. Gallbladder is surgically absent. Pancreas is normal in size. Spleen is normal in size. No adrenal nodules. Both kidneys are normal in size, without hydronephrosis or nephrolithiasis. Peritoneum and bowel: Scattered colonic diverticula without acute diverticulitis. Bowel loops demonstrate normal wall thickness and caliber. No free fluid or air. Nodes and vessels: No retroperitoneal or mesenteric adenopathy by size criteria. Aorta and inferior vena cava are normal in size. Miscellaneous: No ventral hernias. PELVIS: Genitourinary: Bladder wall thickness is unremarkable given degree of distention. The uterus is not definitively visualized and presumably surgically removed. Miscellaneous: No inguinal hernias or adenopathy. Bones: No suspicious bony lesions. No vertebral body compression fractures. IMPRESSION: CT abdomen and pelvis without acute abnormalities. No findings identified to explain patient's abdominal pain. Colonic diverticulosis without acute diverticulitis. Status post cholecystectomy. Dictated by: Sincere Lopez M.D. on 01/20/2020 at 18:16 Approved by: Sincere Lopez M.D. on 01/20/2020 at 18:23
== END ==
PROVIDERS: PCP Student in an Organized Health Care Education/Training Program; Referring Provider Student in an Organized Health Care Education/Training Program; Visit Provider Student in an Organized Health Care Education/Training Program
DX: R10.9 Unspecified abdominal pain (principal); K57.90 Diverticulosis of intestine, part unspecified, without perforation or abscess without bleeding; Z90.49 Acquired absence of other specified parts of digestive tract
CPT/HCPCS: 74176

== ENCOUNTER → 2020-04-07 10:08 | Outpatient (CLI) | payer MEDICARE, OTHER, SELFPAY ==
[2018-08-21 14:30] VITALS: BMI 44.7
[2020-04-07 11:10] LABS: Bacteria Urine None Seen; RBC Urine None Seen (0-5/HPF); WBC Urine None Seen (0-5/HPF)
[2020-04-07 12:53] LABS: Appearance Urine UA CLEAR; Bilirubin Urine UA NEGATIVE (NEGATIVE); Color Urine UA YELLOW; Glucose Urine UA NEGATIVE (Negative); Ketones Urine UA NEGATIVE (NEGATIVE); Leukocyte Esterase Urine UA NEGATIVE (NEGATIVE); Nitrite Urine UA NEGATIVE (Negative); Occult Blood Urine UA NEGATIVE (Negative); Protein Urine UA TRACE (Negative); Urobilinogen Urine UA 0.2 E.U./dL (0.2)
[2020-04-07 12:54] LABS: Add Manual Diff / Slide Review NO; Basophils Absolute Auto 100 /uL (0-100); Basophils Percent Auto 0.7 % (0-2); Eosinophils Absolute Auto 300 /uL (0-450); Eosinophils Percent Auto 3.4 % (2-4); Hemoglobin 16.1 g/dL (12.0-16.0); Lymphocytes Absolute Auto 3600 /uL (1100-4500); Lymphocytes Percent Auto 34.8 % (25-40); Mean Corpuscular HGB Conc 33.5 % (30-36); Mean Corpuscular Hemoglobin 29.5 PG (26-34); Mean Corpuscular Volume 88.3 fL (80-100); Monocytes Absolute Auto 700 /uL (0-900); Neutrophils Absolute Auto 5600 /uL (1500-7000); Neutrophils Percent Auto 54.1 % (50-75); Platelet Count 220 X10^3/uL (150-400); Red Blood Cell Count 5.44 X10^6/uL (4.0-5.2); Red Cell Distribution Width 15.1 % (11.6-14.8); White Blood Cell Count 10.3 X10^3/uL (4.5-11.0)
[2020-04-07 12:55] LABS: pH Urine UA 5.5 (4.5-8.0)
[2020-04-07 13:01] LABS: Culture Indicated Urine Cult Not Indicated; Squamous Epithelial Cell Urine 5-10 /HPF (0-5/HPF)
[2020-04-07 13:04] LABS: Alanine Aminotransferase 71 IU/L (<35); Albumin 4.6 g/dL (3.5-5.0); Albumin Globulin Ratio 1.3 (1.0-2.8); Alkaline Phosphatase 114 U/L (38-126); Amylase 83 U/L (30-110); Aspartate Aminotransferase 66 IU/L (14-36); BUN Creatinine Ratio 23.2 (6-22); Bilirubin Total 0.7 mg/dL (0.2-1.3); Blood Urea Nitrogen 23 mg/dL (7-17); Carbon Dioxide 32 mmol/L (22-32); Chloride 96 mmol/L (98-107); Estimated Glomerular Filt Rate 56.7 mL/min (>60); Globulin 3.5 g/dL (1.7-4.1); Glucose 123 mg/dL (80-110); HEMOLYSIS 29 (0-50); Lipase 379 U/L (23-300); Potassium 3.9 mmol/L (3.4-5.1); Sodium 138 mmol/L (137-145); Total Protein 8.1 g/dL (6.3-8.2)
== END ==
PROVIDERS: PCP Student in an Organized Health Care Education/Training Program; Referring Provider Student in an Organized Health Care Education/Training Program; Visit Provider Physician Assistant
DX: R10.84 Generalized abdominal pain (principal); R82.90 Unspecified abnormal findings in urine; R19.7 Diarrhea, unspecified; R11.0 Nausea; K29.60 Other gastritis without bleeding
CPT/HCPCS: 36415; 80053; 81001; 82150; 83690; 85025

== ENCOUNTER → 2020-04-09 07:51 | Outpatient (CLI) | payer MEDICARE, OTHER, SELFPAY ==
[2018-08-21 14:30] VITALS: BMI 44.7
[2020-04-09 09:49] LABS: Clostridium Difficile Tox PCR Negative for C. diff
[2020-04-11 14:13] LABS: H. Pylori Antigen Stool Negative (Negative)
[2020-04-11 14:39] LABS: COVID19 Sendout Not Detected (Not Detect)
== END ==
PROVIDERS: Physician Assistant; PCP Student in an Organized Health Care Education/Training Program; Referring Provider Physician Assistant; Visit Provider Physician Assistant
DX: R10.84 Generalized abdominal pain (principal); K29.60 Other gastritis without bleeding; R19.7 Diarrhea, unspecified; R11.0 Nausea; Z11.59 Encounter for screening for other viral diseases
CPT/HCPCS: 87045; 87177; 87329; 87338; 87493; 87635; 87899

== ENCOUNTER → 2020-07-19 09:38 | Outpatient (CLI) | payer MEDICARE, OTHER, SELFPAY ==
[2018-08-21 14:30] VITALS: BMI 44.7
[2020-07-19 10:03] LABS: Hemoglobin A1C% w Est Avg Glu 6.7 % (4.0-6.0)
== END ==
PROVIDERS: PCP Student in an Organized Health Care Education/Training Program; Referring Provider Student in an Organized Health Care Education/Training Program; Visit Provider Student in an Organized Health Care Education/Training Program
DX: E11.9 Type 2 diabetes mellitus without complications (principal)
CPT/HCPCS: 36415; 83036

== ENCOUNTER → 2020-08-24 09:47 | Outpatient (CLI) | payer MEDICARE, OTHER, SELFPAY ==
[2018-08-21 14:30] VITALS: BMI 44.7
[2020-08-24 10:50] LABS: Add Manual Diff / Slide Review NO; Basophils Absolute Auto 100 /uL (0-100); Basophils Percent Auto 0.7 % (0-2); Eosinophils Absolute Auto 300 /uL (0-450); Eosinophils Percent Auto 2.8 % (2-4); Hematocrit 50.6 % (36-46); Hemoglobin 16.7 g/dL (12.0-16.0); Lymphocytes Absolute Auto 3800 /uL (1100-4500); Lymphocytes Percent Auto 36.7 % (25-40); Mean Corpuscular Hemoglobin 29.4 PG (26-34); Mean Corpuscular Volume 88.9 fL (80-100); Monocytes Absolute Auto 600 /uL (0-900); Monocytes Percent Auto 5.8 % (3-14); Neutrophils Absolute Auto 5600 /uL (1500-7000); Platelet Count 198 X10^3/uL (150-400); Red Blood Cell Count 5.69 X10^6/uL (4.0-5.2); Red Cell Distribution Width 14.6 % (11.6-14.8); White Blood Cell Count 10.3 X10^3/uL (4.5-11.0)
[2020-08-24 11:12] LABS: BUN Creatinine Ratio 15.8 (6-22); Blood Urea Nitrogen 18 mg/dL (7-17); Calcium 9.6 mg/dL (8.4-10.2); Carbon Dioxide 30 mmol/L (22-32); Chloride 95 mmol/L (98-107); Cholesterol 237 mg/dL (140-199); Estimated Glomerular Filt Rate 48.1 mL/min (>60); Glucose 124 mg/dL (80-110); HDL Cholesterol 72 mg/dL (40-60); HEMOLYSIS 24 (0-50); LDL Cholesterol Calculated 107 mg/dL (<100); Potassium 3.8 mmol/L (3.4-5.1); Sodium 136 mmol/L (137-145); Triglycerides 291 mg/dL (35-150)
== END ==
PROVIDERS: PCP Student in an Organized Health Care Education/Training Program; Referring Provider Internal Medicine Cardiovascular Disease; Visit Provider Internal Medicine Cardiovascular Disease
DX: I10 Essential (primary) hypertension (principal); E78.5 Hyperlipidemia, unspecified
CPT/HCPCS: 36415; 80048; 80061; 85025

== ENCOUNTER → 2020-10-21 11:08 | Outpatient (CLI) | payer MEDICARE, OTHER, SELFPAY ==
[2018-08-21 14:30] VITALS: BMI 44.7
[2020-10-21] MEDS: COVID-19 VACC #1, MRNA(MOD) 100 MCG/0.5 ML VIAL IM (11:20)
== END ==
PROVIDERS: PCP Student in an Organized Health Care Education/Training Program; Visit Provider Internal Medicine
DX: Z23 Encounter for immunization (principal)
CPT/HCPCS: 0011A; 91301

== ENCOUNTER → 2020-11-18 10:54 | Outpatient (CLI) | payer MEDICARE, OTHER, SELFPAY ==
[2018-08-21 14:30] VITALS: BMI 44.7
[2020-11-18] MEDS: COVID-19 VACC #2, MRNA(MOD) 100 MCG/0.5 ML VIAL IM (11:03)
== END ==
PROVIDERS: PCP Student in an Organized Health Care Education/Training Program; Visit Provider Internal Medicine
DX: Z23 Encounter for immunization (principal)
CPT/HCPCS: 0012A; 91301

== ENCOUNTER → 2021-04-06 07:34 | Outpatient (CLI) | payer MEDICARE, OTHER, SELFPAY ==
[2021-02-22 10:29] VITALS: BMI 44.7
[2021-04-06 08:57] LABS: Creatinine Urine Random 43.4 mg/dL
[2021-04-06 09:02] LABS: Microalbumin Urine Random < 0.6 mg/dL (0-1.6)
[2021-04-06 09:48] LABS: BUN Creatinine Ratio 16.3 (6-22); Blood Urea Nitrogen 15 mg/dL (7-17); Calcium 9.4 mg/dL (8.4-10.2); Carbon Dioxide 34 mmol/L (22-32); Chloride 99 mmol/L (98-107); Estimated Glomerular Filt Rate > 60.0 mL/min (>60); Glucose 141 mg/dL (80-110); HEMOLYSIS < 15 (0-50); Potassium 4.2 mmol/L (3.4-5.1); Sodium 139 mmol/L (137-145)
[2021-04-06 09:56] LABS: Hemoglobin A1C% w Est Avg Glu 6.7 % (4.0-6.0)
--- NOTE | 2021-04-06 11:26 | DI.MRI.S_ITS ---
PROCEDURE: MR LUMBAR SPINE WO CON INDICATIONS: Back pain with leg weakness TECHNIQUE: Noncontrast sagittal T1 spin echo and T2 fast echo, sagittal STIR, axial T1 and T2 fast spin echo through the lumbar spine. In cases with scoliosis, additional coronal T2 fast spin echo may be performed. COMPARISON: None. FINDINGS: Image quality: Excellent. Alignment and Curvature: Grade 1 retrolisthesis of L3 on L4. Bone Marrow: No acute fracture identified. Multilevel degenerative endplate sclerosis and spurring. Diffuse facet arthropathy. Presumed hemangioma involving the L3 vertebral body. Spinal Cord: Conus medullaris terminates at the L1-L2 level. Visualized cord demonstrates normal signal and size. Paraspinous Soft Tissues: No paravertebral masses. There is nonspecific, dependent posterior subcutaneous soft tissue edema from level of L1-L5. There is mild dorsal epidural lipomatosis primarily at the level of L3-L4 and L4-L5. T12-L1: Normal appearance. L1-L2: Normal appearance. L2-L3: Mild canal narrowing. No definite foraminal stenosis. L3-L4: Mild canal narrowing. Partial effacement of both lateral recesses with bilaterally symmetric appearance. This [id number] bilateral foraminal stenosis. L4-L5: Mild right-sided canal narrowing. Partial effacement of both lateral recesses with asymmetric appearance, right greater than left. No definite foraminal narrowing.. L5-S1: Normal appearance. IMPRESSION: Bilateral foraminal stenoses at L3-L4 and L4-L5 as detailed above by spinal level. No high-grade canal narrowing. Grade 1 retrolisthesis of L3 on L4. Dictated by: Duke Woodard M.D. on 04/06/2021 at 14:16 Approved by: Duke Woodard M.D. on 04/06/2021 at 14:22
== END ==
PROVIDERS: PCP Student in an Organized Health Care Education/Training Program; Referring Provider Student in an Organized Health Care Education/Training Program; Visit Provider Student in an Organized Health Care Education/Training Program
DX: M48.062 Spinal stenosis, lumbar region with neurogenic claudication (principal); E11.9 Type 2 diabetes mellitus without complications; M54.5 Low back pain; M43.16 Spondylolisthesis, lumbar region
CPT/HCPCS: 36415; 72148; 80048; 82043; 82570; 83036

== ENCOUNTER → 2021-12-01 07:37 | Outpatient (CLI) | payer MEDICARE, OTHER, SELFPAY ==
[2021-02-22 10:29] VITALS: BMI 44.7
[2021-12-01 08:51] LABS: Add Manual Diff / Slide Review NO; Basophils Absolute Auto 100 /uL (0-100); Basophils Percent Auto 0.9 % (0-2); Eosinophils Absolute Auto 200 /uL (0-450); Eosinophils Percent Auto 3.1 % (2-4); Hemoglobin 14.5 g/dL (12.0-16.0); Lymphocytes Absolute Auto 2500 /uL (1100-4500); Lymphocytes Percent Auto 31.3 % (25-40); Mean Corpuscular HGB Conc 32.9 % (30-36); Mean Corpuscular Hemoglobin 29.1 PG (26-34); Mean Corpuscular Volume 88.4 fL (80-100); Monocytes Absolute Auto 500 /uL (0-900); Monocytes Percent Auto 6.4 % (3-14); Neutrophils Absolute Auto 4600 /uL (1500-7000); Neutrophils Percent Auto 58.3 % (50-75); Platelet Count 213 X10^3/uL (150-400); Red Blood Cell Count 4.98 X10^6/uL (4.0-5.2); Red Cell Distribution Width 14.3 % (11.6-14.8); White Blood Cell Count 7.9 X10^3/uL (4.5-11.0)
[2021-12-01 09:25] LABS: BUN Creatinine Ratio 19.8 (6-22); Blood Urea Nitrogen 16 mg/dL (7-17); Calcium 9.2 mg/dL (8.4-10.2); Carbon Dioxide 29 mmol/L (22-32); Chloride 100 mmol/L (98-107); Cholesterol 159 mg/dL (140-199); Estimated Glomerular Filt Rate > 60 mL/min (>60); Glucose 297 mg/dL (80-110); HDL Cholesterol 45 mg/dL (40-60); HEMOLYSIS 16 (0-50); LDL Cholesterol Calculated 69 mg/dL (<100); Potassium 4.2 mmol/L (3.4-5.1); Sodium 137 mmol/L (137-145); Triglycerides 226 mg/dL (35-150)
--- NOTE | 2021-12-01 12:19 | DI.MG.S_ITS ---
BILATERAL DIGITAL SCREENING MAMMOGRAM 3D/2D WITH CAD: 12/01/2021 CLINICAL: Routine screening. Comparison is made to exams dated: 12/20/2018 mammogram - [facility], 05/17/2010 mammogram, and 03/24/2009 mammogram - [facility]. There are scattered fibroglandular elements in both breasts. Current study was also evaluated with a Computer Aided Detection (CAD) system. There are benign calcifications in both breasts. There also are benign vascular calcifications in both breasts. No significant masses, calcifications, or other findings are seen in either breast. There has been no significant interval change. IMPRESSION: BENIGN There is no mammographic evidence of malignancy. A 1 year screening mammogram is recommended. This exam was interpreted at Station ID: [id number]. NOTE: For mammograms, a report in lay terms will be sent to the patient. Approximately 15% of breast malignancies will not be visualized mammographically. In the management of a palpable breast mass, a negative mammogram must not discourage biopsy of a clinically suspicious lesion. Electronically Signed By: Alvino Tanner acr/penrad:12/01/2021 13:39:57 letter sent: Normal Exam ACR BI-RADS Category 2: Benign Finding(s) 3342F
== END ==
PROVIDERS: Internal Medicine Cardiovascular Disease; PCP Student in an Organized Health Care Education/Training Program; Referring Provider Student in an Organized Health Care Education/Training Program; Visit Provider Student in an Organized Health Care Education/Training Program
DX: E11.9 Type 2 diabetes mellitus without complications (principal); E78.5 Hyperlipidemia, unspecified; I10 Essential (primary) hypertension; Z12.31 Encounter for screening mammogram for malignant neoplasm of breast
CPT/HCPCS: 36415; 77063; 77067; 80048; 80061; 83036; 85025

== ENCOUNTER → 2022-01-12 10:27 | Outpatient (CLI) | payer MEDICARE, OTHER, SELFPAY ==
[2021-02-22 10:29] VITALS: BMI 44.7
[2022-01-12 11:57] LABS: Add Manual Diff / Slide Review NO; Basophils Absolute Auto 0 /uL (0-100); Basophils Percent Auto 0.4 % (0-2); Eosinophils Absolute Auto 200 /uL (0-450); Eosinophils Percent Auto 2.3 % (2-4); Hematocrit 45.1 % (36-46); Lymphocytes Absolute Auto 2500 /uL (1100-4500); Lymphocytes Percent Auto 32.1 % (25-40); Mean Corpuscular HGB Conc 33.3 % (30-36); Mean Corpuscular Hemoglobin 29.1 PG (26-34); Mean Corpuscular Volume 87.6 fL (80-100); Monocytes Absolute Auto 600 /uL (0-900); Monocytes Percent Auto 8.2 % (3-14); Neutrophils Absolute Auto 4500 /uL (1500-7000); Platelet Count 256 X10^3/uL (150-400); Red Blood Cell Count 5.15 X10^6/uL (4.0-5.2); Red Cell Distribution Width 14.7 % (11.6-14.8); White Blood Cell Count 7.8 X10^3/uL (4.5-11.0)
[2022-01-12 12:00] LABS: Appearance Urine UA CLEAR; Bilirubin Urine UA NEGATIVE (NEGATIVE); Color Urine UA YELLOW; Glucose Urine UA NEGATIVE (Negative); Ketones Urine UA NEGATIVE (NEGATIVE); Leukocyte Esterase Urine UA TRACE (NEGATIVE); Nitrite Urine UA NEGATIVE (Negative); Occult Blood Urine UA NEGATIVE (Negative); Protein Urine UA NEGATIVE (Negative); Urobilinogen Urine UA 0.2 E.U./dL (0.2)
[2022-01-12 12:10] LABS: Bacteria Urine Few (2-10); Culture Indicated Urine Specimen Cultured; RBC Urine None Seen (0-5/HPF); Squamous Epithelial Cell Urine 1-5 /HPF (0-5/HPF); WBC Urine 1-5/HPF (0-5/HPF)
[2022-01-12 12:30] LABS: Erythrocyte Sedimentation Rate 2 MM/HR (0-20)
[2022-01-12 12:38] LABS: Alanine Aminotransferase 37 IU/L (<35); Albumin 4.3 g/dL (3.5-5.0); Albumin Globulin Ratio 1.5 (1.0-2.8); Alkaline Phosphatase 82 U/L (38-126); Aspartate Aminotransferase 33 IU/L (14-36); BUN Creatinine Ratio 17.1 (6-22); Bilirubin Total 0.7 mg/dL (0.2-1.3); Blood Urea Nitrogen 14 mg/dL (7-17); C-Reactive Protein Quant < 0.5 mg/dL (<1.0); Calcium 9.5 mg/dL (8.4-10.2); Carbon Dioxide 30 mmol/L (22-32); Chloride 100 mmol/L (98-107); Estimated Glomerular Filt Rate > 60 mL/min (>60); Globulin 2.8 g/dL (1.7-4.1); Glucose 135 mg/dL (80-110); HEMOLYSIS < 15 (0-50); Phosphorous 3.1 mg/dL (2.8-4.1); Potassium 4.8 mmol/L (3.4-5.1); Sodium 140 mmol/L (137-145); Total Protein 7.1 g/dL (6.3-8.2)
[2022-01-12 12:50] LABS: Vitamin D 25 Hydroxy (D3) 31.8 ng/mL (30.0-100.0)
[2022-01-13 07:28] LABS: Fructosamine 232 umol/L (0-285)
== END ==
PROVIDERS: PCP Student in an Organized Health Care Education/Training Program; Referring Provider Student in an Organized Health Care Education/Training Program; Visit Provider Student in an Organized Health Care Education/Training Program
DX: E11.9 Type 2 diabetes mellitus without complications (principal); I10 Essential (primary) hypertension; M31.6 Other giant cell arteritis
CPT/HCPCS: 36415; 80053; 81001; 82306; 82985; 84100; 85025; 85651; 86140; 87086

== ENCOUNTER → 2022-04-20 09:43 | Outpatient (CLI) | payer MEDICARE, OTHER, SELFPAY ==
[2021-02-22 10:29] VITALS: BMI 44.7
[2022-04-20 10:58] LABS: Hemoglobin A1C% w Est Avg Glu 6.4 % (4.0-6.0)
== END ==
PROVIDERS: PCP Student in an Organized Health Care Education/Training Program; Referring Provider Student in an Organized Health Care Education/Training Program; Visit Provider Student in an Organized Health Care Education/Training Program
DX: E11.9 Type 2 diabetes mellitus without complications (principal)
CPT/HCPCS: 36415; 83036

== ENCOUNTER → 2022-05-29 11:11 | Outpatient (CLI) | payer MEDICARE, OTHER, SELFPAY ==
[2021-02-22 10:29] VITALS: BMI 44.7
[2022-05-29 12:48] LABS: Hemoglobin A1C% w Est Avg Glu 6.7 % (4.0-6.0)
[2022-05-29 13:52] LABS: Blood Urea Nitrogen 17 mg/dL (7-17); Calcium 9.8 mg/dL (8.4-10.2); Carbon Dioxide 24 mmol/L (22-32); Chloride 99 mmol/L (98-107); Estimated Glomerular Filt Rate > 60 mL/min (>60); Glucose 177 mg/dL (80-110); HEMOLYSIS < 15 (0-50); Potassium 4.2 mmol/L (3.4-5.1); Sodium 138 mmol/L (137-145)
[2022-05-29 16:04] LABS: Creatinine Urine Random 198.1 mg/dL
[2022-05-29 16:34] LABS: Microalbumi Creatinin Ratio Ur 174.6 ug/mg CR (<30); Microalbumin Urine Random 34.6 mg/dL (0-1.6)
[2022-06-01 06:14] LABS: Creatinine, Random Urine 192.6 mg/dL (Not Estab.); Metaneph/ Creatinine Ratio 0.6 (0.0-1.0); Metanephrine, Ur 270 ug/L (Undefined); Normetanephrine, Urine 863 ug/L (Undefined)
== END ==
PROVIDERS: PCP Student in an Organized Health Care Education/Training Program; Referring Provider Nurse Practitioner; Visit Provider Nurse Practitioner
DX: E11.9 Type 2 diabetes mellitus without complications (principal); I10 Essential (primary) hypertension
CPT/HCPCS: 36415; 80048; 82043; 82570; 83036; 83835

== ENCOUNTER → 2022-06-19 08:23 | Outpatient (CLI) | payer MEDICARE, OTHER, SELFPAY ==
[2021-02-22 10:29] VITALS: BMI 44.7
[2022-06-19 10:00] LABS: Add Manual Diff / Slide Review NO; Basophils Absolute Auto 0 /uL (0-100); Basophils Percent Auto 0.5 % (0-2); Eosinophils Absolute Auto 200 /uL (0-450); Eosinophils Percent Auto 2.8 % (2-4); Hematocrit 43.6 % (36-46); Hemoglobin 14.2 g/dL (12.0-16.0); Lymphocytes Absolute Auto 2700 /uL (1100-4500); Lymphocytes Percent Auto 33.2 % (25-40); Mean Corpuscular HGB Conc 32.6 % (30-36); Mean Corpuscular Hemoglobin 28.8 PG (26-34); Mean Corpuscular Volume 88.4 fL (80-100); Monocytes Absolute Auto 600 /uL (0-900); Neutrophils Absolute Auto 4600 /uL (1500-7000); Neutrophils Percent Auto 56.5 % (50-75); Platelet Count 258 X10^3/uL (150-400); Red Blood Cell Count 4.94 X10^6/uL (4.0-5.2); Red Cell Distribution Width 16.2 % (11.6-14.8); White Blood Cell Count 8.1 X10^3/uL (4.5-11.0)
[2022-06-19 10:13] LABS: BUN Creatinine Ratio 21.3 (6-22); Blood Urea Nitrogen 17 mg/dL (7-17); Calcium 9.1 mg/dL (8.4-10.2); Carbon Dioxide 23 mmol/L (22-32); Chloride 100 mmol/L (98-107); Cholesterol 154 mg/dL (140-199); Estimated Glomerular Filt Rate > 60 mL/min (>60); Glucose 159 mg/dL (80-110); HDL Cholesterol 49 mg/dL (40-60); HEMOLYSIS < 15 (0-50); LDL Cholesterol Calculated 70 mg/dL (<100); Potassium 4.6 mmol/L (3.4-5.1); Sodium 137 mmol/L (137-145); Triglycerides 177 mg/dL (35-150)
== END ==
PROVIDERS: PCP Student in an Organized Health Care Education/Training Program; Referring Provider Internal Medicine Cardiovascular Disease; Visit Provider Internal Medicine Cardiovascular Disease
DX: E78.5 Hyperlipidemia, unspecified (principal); I10 Essential (primary) hypertension
CPT/HCPCS: 36415; 80048; 80061; 85025

== ENCOUNTER → 2022-08-14 08:02 | Outpatient (CLI) | payer MEDICARE, OTHER, SELFPAY ==
[2021-02-22 10:29] VITALS: BMI 44.7
[2022-08-14 10:48] LABS: BUN Creatinine Ratio 27.4 (6-22); Blood Urea Nitrogen 23 mg/dL (7-17); Calcium 9.4 mg/dL (8.4-10.2); Carbon Dioxide 30 mmol/L (22-32); Chloride 97 mmol/L (98-107); Estimated Glomerular Filt Rate > 60 mL/min (>60); Glucose 112 mg/dL (80-110); HEMOLYSIS 18 (0-50); Potassium 4.9 mmol/L (3.4-5.1); Sodium 137 mmol/L (137-145)
== END ==
PROVIDERS: PCP Student in an Organized Health Care Education/Training Program; Referring Provider Nurse Practitioner; Visit Provider Nurse Practitioner
DX: I10 Essential (primary) hypertension (principal)
CPT/HCPCS: 36415; 80048

== ENCOUNTER → 2022-12-13 11:41 | Outpatient (CLI) | payer MEDICARE, OTHER, SELFPAY ==
[2021-02-22 10:29] VITALS: BMI 44.7
[2022-12-13 12:59] LABS: Add Manual Diff / Slide Review NO; Basophils Absolute Auto 100 /uL (0-100); Basophils Percent Auto 0.9 % (0-2); Eosinophils Absolute Auto 300 /uL (0-450); Eosinophils Percent Auto 3.1 % (2-4); Hematocrit 41.4 % (36-46); Hemoglobin 13.6 g/dL (12.0-16.0); Lymphocytes Absolute Auto 2500 /uL (1100-4500); Lymphocytes Percent Auto 30.2 % (25-40); Mean Corpuscular HGB Conc 32.8 % (30-36); Mean Corpuscular Hemoglobin 29.5 PG (26-34); Monocytes Absolute Auto 700 /uL (0-900); Monocytes Percent Auto 7.9 % (3-14); Neutrophils Absolute Auto 4800 /uL (1500-7000); Neutrophils Percent Auto 57.9 % (50-75); Platelet Count 295 X10^3/uL (150-400); Red Cell Distribution Width 15.8 % (11.6-14.8); White Blood Cell Count 8.2 X10^3/uL (4.5-11.0)
[2022-12-13 13:08] LABS: D Dimer 637 ng/ml (<500)
[2022-12-13 13:15] LABS: Alanine Aminotransferase 23 IU/L (<35); Albumin 4.1 g/dL (3.5-5.0); Albumin Globulin Ratio 1.4 (1.0-2.8); Alkaline Phosphatase 78 U/L (38-126); Aspartate Aminotransferase 25 IU/L (14-36); BUN Creatinine Ratio 21.3 (6-22); Bilirubin Total 0.5 mg/dL (0.2-1.3); Blood Urea Nitrogen 17 mg/dL (7-17); Calcium 9.3 mg/dL (8.4-10.2); Carbon Dioxide 21 mmol/L (22-32); Chloride 100 mmol/L (98-107); Creatine Kinase 37 U/L (30-135); Estimated Glomerular Filt Rate > 60 mL/min (>60); Glucose 115 mg/dL (80-110); HEMOLYSIS < 15 (0-50); Potassium 4.7 mmol/L (3.4-5.1); Sodium 137 mmol/L (137-145); Total Protein 7.1 g/dL (6.3-8.2)
[2022-12-13 13:42] LABS: Erythrocyte Sedimentation Rate 13 MM/HR (0-20)
[2022-12-13 16:03] LABS: Creatinine Urine Random 133.1 mg/dL
[2022-12-13 16:08] LABS: Microalbumi Creatinin Ratio Ur 128.4 ug/mg CR (<30); Microalbumin Urine Random 17.1 mg/dL (0-1.6)
[2022-12-14 06:04] LABS: x Labcorp Estim. Avg Glu (eAG) 134 mg/dL (.); x Labcorp Hemoglobin A1c 6.3 % (4.8-5.6)
== END ==
PROVIDERS: PCP Student in an Organized Health Care Education/Training Program; Referring Provider Pediatrics; Visit Provider Pediatrics
DX: E11.9 Type 2 diabetes mellitus without complications (principal); R80.9 Proteinuria, unspecified; E11.42 Type 2 diabetes mellitus with diabetic polyneuropathy; E11.69 Type 2 diabetes mellitus with other specified complication; E66.01 Morbid (severe) obesity due to excess calories; E78.5 Hyperlipidemia, unspecified; F13.20 Sedative, hypnotic or anxiolytic dependence, uncomplicated; F41.1 Generalized anxiety disorder; G47.33 Obstructive sleep apnea (adult) (pediatric); Z86.718 Personal history of other venous thrombosis and embolism
CPT/HCPCS: 80053; 82043; 82550; 82570; 83036; 85025; 85379; 85651

== ENCOUNTER → 2022-12-29 10:29 | Outpatient (CLI) | payer MEDICARE, OTHER, SELFPAY ==
[2021-02-22 10:29] VITALS: BMI 44.7
[2022-12-29 11:40] LABS: BUN Creatinine Ratio 18.5 (6-22); Blood Urea Nitrogen 15 mg/dL (7-17); Calcium 9.4 mg/dL (8.4-10.2); Carbon Dioxide 29 mmol/L (22-32); Chloride 103 mmol/L (98-107); Estimated Glomerular Filt Rate > 60 mL/min (>60); Glucose 103 mg/dL (80-110); HEMOLYSIS < 15 (0-50); Potassium 4.6 mmol/L (3.4-5.1); Sodium 139 mmol/L (137-145)
[2022-12-29 12:26] LABS: Free T4, Direct Thyroxine 1.17 ng/dL (0.78-2.19)
[2023-01-14 15:41] LABS: Aldosterone/Renin Activity Rat >56.9 (0.0-30.0); Plama Renin, LC/MS/MS <0.167 ng/mL/hr (0.167-5.380)
== END ==
PROVIDERS: PCP Pediatrics; Referring Provider Internal Medicine; Visit Provider Internal Medicine
DX: E03.9 Hypothyroidism, unspecified (principal); I10 Essential (primary) hypertension
CPT/HCPCS: 36415; 80048; 82088; 84244; 84439; 84443

== ENCOUNTER → 2023-01-04 07:38 | Outpatient (CLI) | payer MEDICARE, OTHER, SELFPAY ==
[2021-02-22 10:29] VITALS: BMI 44.7
--- NOTE | 2023-01-04 07:39 | DI.ECHO.S_ITS ---
[facility]---------+ [facility] +---------+ : : [address] : : : : [id number] : : : : Phone: [phone]+ Echocardiogram Report + + :Name: STEPHEN ACUNA Study Date: 01/04/2023 Height: 67 in : :[facility] ReadingLocation: Weight: 290 lb : : Gender: Female BSA: 2.4 m2 : :: 1955 Age: 67 yrs BP: 185/110 mmHg: :Reason For Study: DYSPNEA ON EXERTION, PULMONARY HYPERTENSION : :Ordering Physician: ALVARADO, : :ARCENIO Slater Performed By: Ngozi Hilton : :Referring: ARCENIO CHILDERS : + + Interpretation Summary 1) Normal left ventricular thickness, size, wall motion, and systolic function (EF 65-70%). 2) Grossly, normal right ventricular size and function. 3) No significant valvular abnormalities. 4) Compared to the Echo done 11/14/2018, no signifiant change. Procedure: A two-dimensional transthoracic echocardiogram with color flow and Doppler was performed. The study quality was technically difficult. Comparison is made with the echocardiogram of 11/14/2018. A contrast injection of Definity was performed to improve assessment of LV function. The patient was in sinus rhythm with heart rates between 65-75 bpm during the exam. Left Ventricle: The left ventricle is normal in size and wall thickness. The ejection fraction is estimated to be 65-70%. Left ventricular systolic function appears normal without focal wall motion abnormalities. Diastolic function could not be accurately assessed due to contradictory data. Right Ventricle: The right ventricle is not well visualized. The right ventricle grossly appears normal in size with probable normal systolic function. Atria: The left atrial size is normal. There is no Doppler evidence for an interatrial shunt. Mitral Valve: The mitral valve is normal in structure and function. There is mild mitral regurgitation. Aortic Valve: The aortic valve is trileaflet. The aortic valve opens well. There is no aortic valve stenosis. No aortic regurgitation is present. Tricuspid Valve: The tricuspid valve is normal in structure and function. There is mild tricuspid regurgitation. The right ventricular systolic pressure is estimated to be at least 27 mmHg based on an estimated right atrial pressure of 3 mm Hg. Pulmonic Valve: The pulmonic valve is not well visualized. There is mild pulmonic regurgitation. Great Vessels: The aortic root is normal size. The dimensions of the ascending aorta are normal. The IVC is of normal diameter and collapses greater than 50% with a sniff. This suggests a low right atrial pressure of 3 mm Hg. Pericardium/ Pleura There is no pericardial effusion. There is no pleural effusion. MMode/2D Measurements & Calculations LVIDd: 5.2 cm LVOT diam: 2.0 cm LVIDs: 3.5 cm Ao root diam: 3.1 cm FS: 31.8 % asc Aorta Diam: 3.4 cm EPSS: 0.78 cm Ao Arch Diam (Prox Trans): 2.3 cm IVSd: 1.1 cm LVPWd: 0.82 cm LV olson. diameter/BSA (cm/m^2): 2.2 LV sys. diameter/BSA (cm/m^2): 1.5 LA A2 area: 21.8 cm2 IVC diam: 1.7 cm LA A4 area: 18.7 cm2 LA length (vol): 5.7 cm LA vol: 60.9 ml LA vol index: 25.7 ml/m2 Doppler Measurements & Calculations Ao V2 max: 119.8 cm/sec LVOT Max Panchito: 98.3 cm/sec Ao V2 mean: 81.0 cm/sec LV V1 max P.9 mmHg Ao max P.7 mmHg LV V1 VTI: 23.6 cm Ao mean P.0 mmHg ELVI(I,D): 3.0 cm2 Ao V2 VTI: 25.0 cm ELVI(V,D): 2.6 cm2 sev ratio: 0.94 ELVI indexed to BSA (cm^2/m^2): 1.3 MV E max panchito: 97.1 cm/sec TR max panchito: 245.2 cm/sec MV A max panchito: 105.6 cm/sec TR max P.1 mmHg MV E/A: 0.92 PA V2 max: 73.3 cm/sec Med Peak E' Panchito: 6.1 cm/sec PA V2 mean: 56.9 cm/sec E/E' med: 16.0 PA mean P.4 mmHg Lat Peak E' Panchito: 7.1 cm/sec E/E' lat: 13.7 E/e' average: 14.9 MV dec time: 0.26 sec SV(LVOT): 74.1 ml Reading Physician:02:29 PM
== END ==
PROVIDERS: PCP Pediatrics; Referring Provider Pediatrics; Visit Provider Pediatrics
DX: I08.1 Rheumatic disorders of both mitral and tricuspid valves (principal); R06.00 Dyspnea, unspecified; I27.20 Pulmonary hypertension, unspecified; E11.69 Type 2 diabetes mellitus with other specified complication; E78.5 Hyperlipidemia, unspecified; F41.1 Generalized anxiety disorder; F13.20 Sedative, hypnotic or anxiolytic dependence, uncomplicated; G47.33 Obstructive sleep apnea (adult) (pediatric); Z86.718 Personal history of other venous thrombosis and embolism
CPT/HCPCS: C8929; Q9957

== ENCOUNTER → 2023-04-10 08:42 | Outpatient (CLI) | payer MEDICARE, OTHER, SELFPAY ==
[2021-02-22 10:29] VITALS: BMI 44.7
--- NOTE | 2023-04-10 08:43 | DI.MRI.S_ITS ---
PROCEDURE: MR HEAD/BRAIN WO/W CON INDICATIONS: vasc ischemic changes? h/o dizziness presyncope, FMHx ALS TECHNIQUE: Noncontrast axial T1 spin echo, axial T2 fast spin echo, sagittal and axial FLAIR, coronal T2 fast spin echo, axial gradient echo, axial diffusion and ADC through the brain. After the administration of contrast, axial and coronal and sagittal T1 spin echo with fat saturation through the brain. COMPARISON: [facility], CT, HEAD WITHOUT CONTRAST, 05/27/2010, 9:49. FINDINGS: Image quality: Excellent. CSF spaces: Basal cisterns are patent. Are mild arachnoid cysts seen involving the anterior at aspects of both middle cranial fossa. Ventricles are normal in size and shape. Brain: No midline shift. No intracranial bleeds or masses. No abnormal intracranial enhancement. There is cerebral volume loss for age. There is periventricular white matter chronic small vessel ischemic change. The brainstem appears normal. Diffusion-weighted images demonstrate no acute ischemic insults. No chronic ischemic insults. Normal intravascular flow voids are present. Skull and face: Calvarial marrow is normal in signal. Orbits appear normal. Sinuses: Sinuses and mastoids appear clear. IMPRESSION: Study within normal limits for age, without a cause of the patient's presenting history identified. No findings of acute or subacute infarction can be seen. No masses or abnormal enhancement can be seen. Arachnoid cyst are incidentally noted involving the anterior aspects of the middle cranial fossa on each side. Dictated by: Nirajnan Mendoza M.D. on 04/10/2023 at 10:48 Approved by: Niranjan Mendoza M.D. on 04/10/2023 at 10:51
== END ==
PROVIDERS: PCP Pediatrics; Referring Provider Pediatrics; Visit Provider Pediatrics
DX: G93.0 Cerebral cysts (principal); R29.898 Other symptoms and signs involving the musculoskeletal system; E03.9 Hypothyroidism, unspecified; I10 Essential (primary) hypertension; F41.1 Generalized anxiety disorder; E11.42 Type 2 diabetes mellitus with diabetic polyneuropathy; E66.01 Morbid (severe) obesity due to excess calories; F13.20 Sedative, hypnotic or anxiolytic dependence, uncomplicated; M17.0 Bilateral primary osteoarthritis of knee; M48.062 Spinal stenosis, lumbar region with neurogenic claudication; M54.50 Low back pain, unspecified
CPT/HCPCS: 70553

== ENCOUNTER → 2023-06-06 10:41 | Outpatient (CLI) | payer MEDICARE, OTHER, SELFPAY ==
[2021-02-22 10:29] VITALS: BMI 44.7
[2023-06-06 11:31] LABS: Hemoglobin A1C% w Est Avg Glu 9.3 % (4.0-6.0)
[2023-06-06 11:46] LABS: Alanine Aminotransferase 23 IU/L (<35); Albumin 4.5 g/dL (3.5-5.0); Albumin Globulin Ratio 1.3 (1.0-2.8); Alkaline Phosphatase 61 U/L (38-126); Aspartate Aminotransferase 28 IU/L (14-36); BUN Creatinine Ratio 21.7 (6-22); Bilirubin Total 0.7 mg/dL (0.2-1.3); Blood Urea Nitrogen 28 mg/dL (7-17); Calcium 9.9 mg/dL (8.4-10.2); Carbon Dioxide 20 mmol/L (22-32); Chloride 104 mmol/L (98-107); Estimated Glomerular Filt Rate 46 mL/min (>60); Globulin 3.4 g/dL (1.7-4.1); Glucose 152 mg/dL (80-110); Potassium 5.2 mmol/L (3.4-5.1); Sodium 136 mmol/L (137-145); Total Protein 7.9 g/dL (6.3-8.2)
[2023-06-06 11:47] LABS: HEMOLYSIS 55 (0-50)
== END ==
PROVIDERS: PCP Family Medicine; Referring Provider Family Medicine; Visit Provider Family Medicine
DX: Z00.00 Encounter for general adult medical examination without abnormal findings (principal); E11.42 Type 2 diabetes mellitus with diabetic polyneuropathy; R29.898 Other symptoms and signs involving the musculoskeletal system
CPT/HCPCS: 36415; 80053; 83036

== ENCOUNTER 2023-07-10 10:30 | Inpatient (IN) | payer MEDICARE, OTHER, SELFPAY ==
[2023-07-06 09:32] VITALS: BMI 44.7
[2023-07-10] VITALS (32 sets, daily range): BP systolic 90–146; BP diastolic 43–97; PULSE 95–134; RESP 16–29; TEMP 36.4–36.6; O2SAT 92–99; BMI 44.4; BMI 43.7
--- NOTE | 2023-07-10 10:39 | DI.RAD.S_ITS ---
PROCEDURE: XR CHEST 1V INDICATIONS: suspected sepsis TECHNIQUE: One view of the chest was acquired. COMPARISON: [facility], CHEST 1 VIEW, 08/27/2009, 10:47. [facility], , CHEST 1 VIEW, 08/27/2009, 10:32. FINDINGS: Surgical changes and devices: None. Lungs and pleura: Lungs are clear. No pleural effusions or pneumothorax. Mediastinum: Mediastinal contours appear normal. Heart size is normal. Bones and chest wall: No suspicious bony lesions. Overlying soft tissues appear unremarkable. IMPRESSION: No acute cardiopulmonary abnormality is seen. Dictated by: Raghav Tran M.D. on 07/10/2023 at 11:21 Approved by: Raghav Tran M.D. on 07/10/2023 at 11:21
--- NOTE | 2023-07-10 10:57 | ED_ITS ---
HPI - Chest Pain General Chief Complaint: Chest Pain Stated Complaint: vomiting, abd pain, chest pain Time Seen by Provider: 07/10/23 10:40 Source: patient Mode of arrival: Wheelchair Limitations: no limitations History of Present Illness HPI narrative: Patient is a 67-year-old female. Has had a history of diverticulitis with perforation and abscess. For the past several weeks has had left lower quadrant abdominal pain that she states is somewhat different than her diverticulitis. She has had nonbloody diarrhea with this. She feels that the diarrhea does make the abdominal pain worse. No fevers. No vomiting. She started to have chest discomfort this morning. No shortness of breath. She went to her primary doctor's office who sent her here to the emergency department because of the chest pain in the abdominal pain. Related Data Home Medications Medication Instructions Recorded Confirmed Respironics Dreamstation Auto CPAP #1 ea 08/07/18 07/10/23 aspirin 81 mg tablet,delayed 81 mg PO DAILY 09/12/19 07/10/23 release hydralazine 25 mg tablet 12.5 mg PO BID 08/21/22 07/10/23 clonazepam 2 mg tablet 2 mg PO BID anxiety/sleep 07/10/23 07/10/23 metformin 850 mg tablet 850 mg PO BID 07/10/23 07/10/23 spironolactone 50 mg tablet 50 mg PO BID 07/10/23 07/10/23 Previous Rx's Medication Instructions Recorded epinephrine 0.3 mg/0.3 mL 0.3 mg (0.3 mL) IM PRN PRN 02/11/19 injection, auto-injector Anaphylaxis #2 ea atorvastatin 40 mg tablet 40 mg PO DAILY #90 tabs 05/24/22 Diabetic shoes and inserts #1 ea 07/07/22 lisinopril 40 mg tablet 40 mg PO BID #180 tabs 03/20/23 levothyroxine 150 mcg tablet 150 mcg PO DAILY #90 tabs 05/16/23 Disabled [address] permit #1 ea 06/06/23 metoprolol succinate 50 mg 50 mg PO BID #60 tabs 07/03/23 tablet,extended release 24 hr tirzepatide 2.5 mg/0.5 mL 2.5 mg (0.5 mL) SUBCUT QWEEK 4 07/03/23 subcutaneous pen injector weeks #2 mL (Mounjaro) clopidogrel 75 mg tablet (Plavix) 75 mg PO DAILY 21 days #21 tabs 07/10/23 Allergies Allergy/AdvReac Type Severity Reaction Status Date / Time bee venom protein (honey bee) Allergy Severe Anaphylaxis Verified 07/10/23 10:45 iodine Allergy Severe Anaphylaxis Verified 07/10/23 10:45 Penicillins [PENICILLINS] Allergy Severe Anaphylaxis Verified 07/10/23 10:45 Sulfa (Sulfonamide Allergy Severe Anaphylaxis Verified 07/10/23 10:45 Antibiotics) [SULFA (SULFONAMIDE ANTIBIOTICS)] cephalexin [From KEFLEX] Allergy Intermediate Vomit Verified 07/10/23 10:45 codeine [CODEINE] Allergy Intermediate Vomit Verified 07/10/23 10:45 hydrocodone [HYDROCODONE] Allergy Intermediate Vomiting Verified 07/10/23 10:45 oxycodone [OXYCODONE] Allergy Intermediate Vomiting Verified 07/10/23 10:45 gold Au 198 AdvReac Mild SKIN Verified 07/10/23 10:45 IRRITATION gabapentin [GABAPENTIN] AdvReac Unknown makes pt. Verified 07/10/23 10:45 really mean Review of Systems Constitutional Constitutional: Reports system reviewed and no additional complaints, except as documented Cardiovascular Cardiovascular: Reports system reviewed and no additional complaints, except as documented Respiratory Respiratory: Reports system reviewed and no additional complaints, except as documented Gastrointestinal Gastrointestinal: Reports system reviewed and no additional complaints, except as documented Genitourinary Genitourinary: Reports system reviewed and no additional complaints, except as documented Musculoskeletal Musculoskeletal: Reports system reviewed and no additional complaints, except as documented Hematologic/Lymphatic On Anticoagulants: No Patient History Medical History Nonsustained ventricular tachycardia Lower extremity weakness Primary osteoarthritis involving multiple joints Severe obesity Acquired hypothyroidism Type 2 diabetes mellitus with polyneuropathy Pes cavus of both feet Diverticulitis large intestine Mild CAD Ventral hernia IBS (irritable bowel syndrome) DDD (degenerative disc disease) Claustrophobia Cataract Headache History of migraine TIA (transient ischemic attack) (~2010) Dry eyes Frequent UTI Incontinence Impairment of balance Neuropathy Chronic pain Herniated disc Arthritis GERD (gastroesophageal reflux disease) Hemorrhoids High protein C activity level Vitamin D deficiency Benzodiazepine dependence, continuous Generalized anxiety disorder APOLONIA (obstructive sleep apnea) Diabetes Degenerative arthritis of left knee Leg swelling Rosacea Post traumatic stress disorder (PTSD) Stroke Migraines Headache ADHD Shoulder pain Osteoporosis Lumbar spine pain Foot pain Fibromyalgia Chronic back pain Cervical spine disease Carpal tunnel syndrome Ankle pain Rubella Mumps History of urinary incontinence (~2007) Diverticular disease (~2002) Colon polyps (~2017) Pulmonary embolism (~2006) Deep vein thrombosis (~2006) Colovaginal fistula (2006) Hypertension (~2002) Acute acalculous cholecystitis Surgical History History of arthroplasty of left knee (08/21/18) H/O spinal fusion History of exploratory laparotomy History of total knee arthroplasty (~2006) History of esophagogastroduodenoscopy (EGD) (~01/10/18) History of colonoscopy (~01/10/18) History of hysterectomy (~1990) History of gynecologic surgery (2006) History of unilateral oophorectomy (1992) History of unilateral oophorectomy (1993) Status post colonoscopy (2013) Status post delivery (1974) Status post delivery (1973) Status post exploratory laparotomy (2004) History of bilateral salpingo-oophorectomy (BSO) Status post hysterectomy (1990) Family History Father No problems noted. Mother No problems noted. Social History household members: significant other Smoking Status: Former smoker alcohol intake: never Smoking Status: Former smoker tobacco type: cigarettes alcohol intake frequency: 0-2 drinks per day Substance Use Type: marijuana Exam Initial Vital Signs Initial Vital Signs: Vital Signs Pulse Rate 109 H 07/10/23 10:38 Respiratory Rate 24 07/10/23 10:38 Pulse Oximetry 95 07/10/23 10:38 HENMT Head: normal to inspection and normocephalic Resp Effort & Inspection: normal respiratory effort Auscultation: clear to auscultation bilaterally Cardio Rate: regular rate Rhythm: regular rhythm GI Inspection: normal to inspection and non-distended Palpation: No firm, No guarding and tender (Left-sided abdomen) Skin General: no rashes or lesions noted Neuro General: patient alert, patient awake and moves all extremities Extrem General: normal to inspection Course Orders Ordered: ED Orders 07/10/23 10:39 XR chest 1V Stat EKG-12 Lead Stat RT Consult Eval and Treat NOW 07/10/23 10:40 Covid-19 + FLU A/B + RSV - PCR Stat 07/10/23 11:30 CT abdomen pelvis wo con Stat 07/10/23 11:35 Complete Blood Count AUTO DIFF Stat Comprehensive Metabolic Panel Stat Lactate (Lactic Acid) Stat Lipase Stat Procalcitonin Stat Troponin & CK Cardiac Panel Stat 07/10/23 12:10 US renal complete Stat 07/10/23 12:35 Blood Culture Stat 07/10/23 13:51 BMP [Basic Metabolic Panel] Stat Troponin & CK Cardiac Panel Stat 07/10/23 15:23 Urinalysis and Microscopic Stat Urine Culture Stat 07/10/23 15:47 D Dimer Stat 07/10/23 16:48 NM pul vent and perfusion Stat Enoxaparin Sodium (Enoxaparin 100 Mg/Ml Syringe) 195 mg SUBCUT DAILY MARK Ondansetron HCl (Ondansetron 4 Mg/2 Ml Inj) 4 mg IV NOW PRN PRN Reason: Nausea And Vomiting Ondansetron HCl (Ondansetron 4 Mg Odt) 4 mg SL NOW PRN PRN Reason: Nausea And Vomiting Discontinued Medications Albuterol (Albuterol 2.5 Mg/3 Ml Neb (Adult)) 5 mg INH NOW ONE Stop: 07/10/23 12:03 Last Admin: 07/10/23 12:34 Dose: 5 mg Documented By: MELVINA Dextrose (Dextrose 50 % In Water 25 Gm/50 Ml Syringe) 25 gm IV NOW ONE Stop: 07/10/23 12:03 Last Admin: 07/10/23 12:18 Dose: 25 gm Documented By: WILFRID Sodium Chloride (Normal Saline 0.9%) 1,000 mls @ 1,000 mls/hr IV BOLUS ONE Stop: 07/10/23 11:37 Last Infusion: 07/10/23 12:55 Dose: Infused Documented By: Admin: 07/10/23 11:36 Dose: 1,000 mls/hr Documented By: TANO Insulin Human Regular (Insulin Regular 100 Unit/Ml 3 Ml Vial) 5 unit IV NOW ONE Stop: 07/10/23 12:03 Last Admin: 07/10/23 12:19 Dose: 5 unit Documented By: WILFRID Co-signed By: SUPRIYA Sodium Polystyrene Sulfonate (Sodium Polystyrene Sulfon/Sorb 15 Gm/60 Ml Cup) 30 gm PO NOW ONE Stop: 07/10/23 12:03 Last Admin: 07/10/23 12:14 Dose: 30 gm Documented By: RLS Vital Signs Vital signs: Vital Signs - 8 hr 07/10/23 10:38 07/10/23 10:40 07/10/23 11:00 Temperature 97.6 F Pulse Rate 109 H 115 H 109 H Respiratory Rate 24 28 H 25 H Blood Pressure 127/69 Pulse Oximetry 95 94 98 Oxygen Delivery Method Room Air Oxygen Flow Rate Fraction of Inspired Oxygen 07/10/23 11:01 07/10/23 11:01 07/10/23 11:30 Temperature Pulse Rate 107 H 101 H Respiratory Rate 26 H 27 H Blood Pressure 118/97 H Pulse Oximetry 98 98 Oxygen Delivery Method Room Air Oxygen Flow Rate Fraction of Inspired Oxygen 07/10/23 11:39 07/10/23 11:39 07/10/23 11:54 Temperature Pulse Rate 99 H Respiratory Rate 21 Blood Pressure 105/65 127/60 Pulse Oximetry 97 Oxygen Delivery Method Oxygen Flow Rate Fraction of Inspired Oxygen 07/10/23 11:54 07/10/23 12:00 07/10/23 12:00 Temperature Pulse Rate 100 H 96 H Respiratory Rate 26 H 20 Blood Pressure 120/67 Pulse Oximetry 99 99 Oxygen Delivery Method Oxygen Flow Rate Fraction of Inspired Oxygen 07/10/23 12:30 07/10/23 12:30 07/10/23 12:35 Temperature Pulse Rate 96 H 98 H Respiratory Rate 21 18 Blood Pressure 146/65 H Pulse Oximetry 99 98 Oxygen Delivery Method Room Air Oxygen Flow Rate 0 Fraction of Inspired Oxygen 07/10/23 12:45 07/10/23 12:45 07/10/23 13:00 Temperature Pulse Rate 100 H 103 H Respiratory Rate 20 Blood Pressure 140/51 L Pulse Oximetry 97 93 Oxygen Delivery Method Oxygen Flow Rate Fraction of Inspired Oxygen 07/10/23 13:01 07/10/23 13:01 07/10/23 13:16 Temperature Pulse Rate 103 H 109 H Respiratory Rate 24 Blood Pressure 119/58 L Pulse Oximetry 96 98 Oxygen Delivery Method Oxygen Flow Rate Fraction of Inspired Oxygen 07/10/23 13:16 07/10/23 13:30 07/10/23 14:00 Temperature Pulse Rate 108 H 108 H Respiratory Rate 19 21 Blood Pressure 124/62 Pulse Oximetry 98 97 Oxygen Delivery Method Oxygen Flow Rate Fraction of Inspired Oxygen 07/10/23 14:30 07/10/23 15:00 07/10/23 15:30 Temperature Pulse Rate 104 H 105 H 114 H Respiratory Rate 20 21 23 Blood Pressure Pulse Oximetry 96 92 97 Oxygen Delivery Method Oxygen Flow Rate Fraction of Inspired Oxygen 07/10/23 16:15 07/10/23 16:30 07/10/23 16:30 Temperature Pulse Rate 109 H 105 H 104 H Respiratory Rate 23 23 21 Blood Pressure 100/54 L Pulse Oximetry 99 98 97 Oxygen Delivery Method Room Air Oxygen Flow Rate Fraction of Inspired Oxygen 07/10/23 16:31 07/10/23 16:31 07/10/23 16:45 Temperature Pulse Rate 106 H Respiratory Rate 21 Blood Pressure 100/54 L 126/57 L Pulse Oximetry 97 Oxygen Delivery Method Oxygen Flow Rate Fraction of Inspired Oxygen 07/10/23 16:45 Temperature Pulse Rate 127 H Respiratory Rate 29 H Blood Pressure Pulse Oximetry 97 Oxygen Delivery Method Oxygen Flow Rate Fraction of Inspired Oxygen MDM - Chest Pain Lab Data Attestation: I reviewed the patient's lab results. 07/10/23 11:35 07/10/23 13:51 Labs: Lab Results 07/10/23 07/10/23 07/10/23 Range/Units 10:40 11:35 13:51 WBC 7.2 (4.5-11.0) X10^3/uL RBC 4.46 (4.0-5.2) X10^6/uL Hgb 13.7 (12.0-16.0) g/dL Hct 40.9 (36-46) % MCV 91.8 (80-100) fL MCH 30.7 (26-34) PG MCHC 33.4 (30-36) % RDW 18.5 H (11.6-14.8) % Plt Count 236 (150-400) X10^3/uL Neut % (Auto) 63.5 (50-75) % Lymph % (Auto) 25.6 (25-40) % [place] % (Auto) 9.4 (3-14) % Eos % (Auto) 0.9 L (2-4) % Baso % (Auto) 0.6 (0-2) % Neut # (Auto) 4600 (2737-3492) /uL Lymph # (Auto) 1800 (9005-4942) /uL [place] # (Auto) 700 (0-900) /uL Eos # (Auto) 100 (0-450) /uL Baso # (Auto) 0 (0-100) /uL D-Dimer (<500) ng/ml Sodium 132 L 134 L (137-145) mmol/L Potassium 7.0 H* 5.2 H D (3.4-5.1) mmol/L Chloride 103 105 (98-107) mmol/L Carbon Dioxide 17 L 16 L (22-32) mmol/L BUN 38 H 37 H (7-17) mg/dL Creatinine 1.87 H 1.72 H (0.52-1.04) mg/dL Estimated GFR 29 L 32 L (>60) mL/min BUN/Creatinine Ratio 20.3 21.5 (6-22) Glucose 125 H 140 H (80-110) mg/dL Lactate 1.9 (0.7-2.1) mmol/L Calcium 10.3 H 9.5 (8.4-10.2) mg/dL Total Bilirubin 1.0 (0.2-1.3) mg/dL AST 36 (14-36) IU/L ALT 46 H (<35) IU/L Alkaline Phosphatase 77 (38-126) U/L Total Creatine Kinase 34 37 (30-135) U/L Troponin I < 0.012 < 0.012 (0.01-0.034) ng/mL Total Protein 8.1 (6.3-8.2) g/dL Albumin 4.5 (3.5-5.0) g/dL Globulin 3.6 (1.7-4.1) g/dL Albumin/Globulin Ratio 1.3 (1.0-2.8) Lipase 333 H (23-300) U/L Procalcitonin 0.09 (<0.5) ng/mL Urine Color Urine Appearance Urine pH (4.5-8.0) Ur Specific [place] (1.000-1.035) Urine Protein (Negative) Urine Glucose (UA) (Negative) g/dL Urine Ketones (NEGATIVE) Urine Occult Blood (Negative) Urine Nitrate (Negative) Urine Bilirubin (NEGATIVE) Ur Bilirubin Confirm Urine Urobilinogen (0.2) E.U./dL Ur Leukocyte Esterase (NEGATIVE) Urine RBC (0-5/HPF) Urine WBC (0-5/HPF) Ur Squamous Epith Cells (0-5/HPF) Urine Bacteria (None) Ur Culture Indicated? SARS-CoV-2 (PCR) Negative (Negative) Influenza A (RT-PCR) Flu a negative (NEGATIVE) Influenza B (RT-PCR) Flu b negative (NEGATIVE) RSV (PCR) Negative (Negative) 07/10/23 07/10/23 Range/Units 15:23 15:47 WBC (4.5-11.0) X10^3/uL RBC (4.0-5.2) X10^6/uL Hgb (12.0-16.0) g/dL Hct (36-46) % MCV (80-100) fL MCH (26-34) PG MCHC (30-36) % RDW (11.6-14.8) % Plt Count (150-400) X10^3/uL Neut % (Auto) (50-75) % Lymph % (Auto) (25-40) % [place] % (Auto) (3-14) % Eos % (Auto) (2-4) % Baso % (Auto) (0-2) % Neut # (Auto) (6862-0340) /uL Lymph # (Auto) (2497-6482) /uL [place] # (Auto) (0-900) /uL Eos # (Auto) (0-450) /uL Baso # (Auto) (0-100) /uL D-Dimer 689 H (<500) ng/ml Sodium (137-145) mmol/L Potassium (3.4-5.1) mmol/L Chloride (98-107) mmol/L Carbon Dioxide (22-32) mmol/L BUN (7-17) mg/dL Creatinine (0.52-1.04) mg/dL Estimated GFR (>60) mL/min BUN/Creatinine Ratio (6-22) Glucose (80-110) mg/dL Lactate (0.7-2.1) mmol/L Calcium (8.4-10.2) mg/dL Total Bilirubin (0.2-1.3) mg/dL AST (14-36) IU/L ALT (<35) IU/L Alkaline Phosphatase (38-126) U/L Total Creatine Kinase (30-135) U/L Troponin I (0.01-0.034) ng/mL Total Protein (6.3-8.2) g/dL Albumin (3.5-5.0) g/dL Globulin (1.7-4.1) g/dL Albumin/Globulin Ratio (1.0-2.8) Lipase (23-300) U/L Procalcitonin (<0.5) ng/mL Urine Color Yellow Urine Appearance Cloudy Urine pH 5.0 (4.5-8.0) Ur Specific [place] 1.025 (1.000-1.035) Urine Protein 1+ H (Negative) Urine Glucose (UA) Trace H (Negative) g/dL Urine Ketones Trace H (NEGATIVE) Urine Occult Blood Negative (Negative) Urine Nitrate Negative (Negative) Urine Bilirubin 1+ H (NEGATIVE) Ur Bilirubin Confirm Cancelled Urine Urobilinogen 0.2 (0.2) E.U./dL Ur Leukocyte Esterase Trace H (NEGATIVE) Urine RBC 0-1/hpf (0-5/HPF) Urine WBC 1-5/hpf (0-5/HPF) Ur Squamous Epith Cells 1-5 /hpf (0-5/HPF) Urine Bacteria Many (>30) H (None) Ur Culture Indicated? Specimen cultured SARS-CoV-2 (PCR) (Negative) Influenza A (RT-PCR) (NEGATIVE) Influenza B (RT-PCR) (NEGATIVE) RSV (PCR) (Negative) Point of Care Testing Glucose POC 167 Imaging Data Chest x-ray: Radiologist's Impression: PROCEDURE: XR CHEST 1V INDICATIONS: suspected sepsis TECHNIQUE: One view of the chest was acquired. COMPARISON: [facility], CHEST 1 VIEW, 08/27/2009, 10:47. [facility], CHEST 1 VIEW, 08/27/2009, 10:32. FINDINGS: Surgical changes and devices: None. Lungs and pleura: Lungs are clear. No pleural effusions or pneumothorax. Mediastinum: Mediastinal contours appear normal. Heart size is normal. Bones and chest wall: No suspicious bony lesions. Overlying soft tissues appear unremarkable. IMPRESSION: No acute cardiopulmonary abnormality is seen. CT scan - abdomen/pelvis: Radiologist's Impression: PROCEDURE: CT ABDOMEN PELVIS WO CON INDICATIONS: Left lower quadrant abdominal pain TECHNIQUE: Axial sections were acquired from the lung bases to the pubic symphysis. Coronal and sagittal reformats were performed. For radiation dose reduction, the following was used: automated exposure control, adjustment of mA and/or kV according to patient size. COMPARISON: [facility], CT, CT ABDOMEN PELVIS WO CON, 01/20/2020, 14:58. FINDINGS: Image quality: Excellent. Lung bases: Unremarkable. Heart: No significant findings. URINARY: Right Kidney: No stones or hydronephrosis. Right Ureter: No hydroureter. Left Kidney: No stones or hydronephrosis. Left Ureter: No hydroureter. Bladder: Normal wall thickness. No stones. ABDOMEN: Liver: No contour-deforming solid mass. Gallbladder: Absent. Biliary ducts: No biliary dilation. Pancreas: No ductal dilation. Spleen: Size is within normal limits. Adrenal Glands: Benign 1.2 centimeter left adrenal nodule based on Hounsfield unit criteria (3 Hounsfield unit). Stomach and Bowel: Normal colonic caliber, without significant wall thickening. Colonic diverticulosis without evidence of diverticulitis. Peritoneum: No abnormal intraperitoneal fluid. No free air. Ventral Wall: No hernia. Abdominal Nodes: No enlarged retroperitoneal or mesenteric lymph nodes. Vessels: Aorta and inferior vena cava are normal in size. PELVIS: Pelvic Organs: Unremarkable. Pelvic Nodes: Unremarkable. Miscellaneous: Fat within the canal of Nucks. Bones: Unremarkable. IMPRESSION: No obstructing stones or hydronephrosis. Colonic diverticulosis without evidence of diverticulitis. Renal ultrasound: Radiologist's Impression: PROCEDURE: US RENAL COMPLETE INDICATIONS: HYPERKALEMIA AND ACUTE KIDNEY INJURY TECHNIQUE: Real-time scanning was performed of the kidneys and bladder, with image documentation. COMPARISON: [facility], [place], RENAL COMPLETE, 07/07/2008, 9:38. FINDINGS: Kidneys: Kidneys are normal in size. Right kidney measures 10.6 cm long; left kidney measures 10.3 cm long. Right renal cortical thickness is 1.4 cm; left renal cortical thickness is 1.7 cm. Renal cortical echotexture is normal. No hydronephrosis or nephrolithiasis. No suspicious solid mass lesions. Bladder: Pre-void bladder volume is 103 mL. The patient could not void. Pre- void images demonstrate no intraluminal masses or stones. On pre-void images, both ureteral jets are noted with color Doppler interrogation. (Of note, ureteral jets may not be detectable in up to 25% of cases due to insufficient differences in specific gravity between ureteral and bladder urine). Miscellaneous: Increased liver echogenicity with posterior attenuation. Hepatomegaly. IMPRESSION: Normal sonographic appearance of the kidneys. Enlarged, fatty liver. ECG Data Attestation: I personally reviewed and interpreted this ECG as follows: Interpretation: Sinus tachycardia Ventricular rate 117 Normal axis Normal QRS Normal QTC No ST T wave changes Repeat EKG Sinus tachycardia Ventricular rate of 119 Normal axis Normal QRS No ST T wave changes MDM Narrative Medical decision making narrative: CT scan of her abdomen shows no acute pathology. Troponin is negative x2. She has remained persistently tachycardic. Has also had loose stools. Potassium initially elevated but treated here in the ER. Some question as to whether not this was technique related regardless repeat potassium is much improved. She would no EKG changes related to this. She did have an episode where she fell in the emergency department. She got out of bed on her own. Apparently was trying to throw away a wipe and fell forward. Did not hit her head. Has no neck pain. Is able to move all 4 extremities. We will hold on any imaging studies for now. She has had a history of pulmonary embolism and DVT. She is unable to receive IV contrast because of a prior history of an anaphylactic reaction. I do have some concern about pulmonary embolism. Her D-dimer is elevated. Patient does require admission to the hospital for further evaluation and treatment and most likely V/Q scan. Discussed the case with Dr. Terrell who is the patient's primary doctor who will admit. Discussed the need for admission with the patient as well. She expressed understanding and agreement. Discharge Plan Departure Patient Disposition: Admitted As Inpatient Clinical Impression: Shortness of breath, Tachycardia Admit Date/Time: 07/10/23 16:53 Admit Provider: Jnaes Terrell
--- NOTE | 2023-07-10 11:30 | DI.CT.S_ITS ---
PROCEDURE: CT ABDOMEN PELVIS WO CON INDICATIONS: Left lower quadrant abdominal pain TECHNIQUE: Axial sections were acquired from the lung bases to the pubic symphysis. Coronal and sagittal reformats were performed. For radiation dose reduction, the following was used: automated exposure control, adjustment of mA and/or kV according to patient size. COMPARISON: [facility], CT, CT ABDOMEN PELVIS WO CON, 01/20/2020, 14:58. FINDINGS: Image quality: Excellent. Lung bases: Unremarkable. Heart: No significant findings. URINARY: Right Kidney: No stones or hydronephrosis. Right Ureter: No hydroureter. Left Kidney: No stones or hydronephrosis. Left Ureter: No hydroureter. Bladder: Normal wall thickness. No stones. ABDOMEN: Liver: No contour-deforming solid mass. Gallbladder: Absent. Biliary ducts: No biliary dilation. Pancreas: No ductal dilation. Spleen: Size is within normal limits. Adrenal Glands: Benign 1.2 centimeter left adrenal nodule based on Hounsfield unit criteria (3 Hounsfield unit). Stomach and Bowel: Normal colonic caliber, without significant wall thickening. Colonic diverticulosis without evidence of diverticulitis. Peritoneum: No abnormal intraperitoneal fluid. No free air. Ventral Wall: No hernia. Abdominal Nodes: No enlarged retroperitoneal or mesenteric lymph nodes. Vessels: Aorta and inferior vena cava are normal in size. PELVIS: Pelvic Organs: Unremarkable. Pelvic Nodes: Unremarkable. Miscellaneous: Fat within the canal of [place]. Bones: Unremarkable. IMPRESSION: No obstructing stones or hydronephrosis. Colonic diverticulosis without evidence of diverticulitis. Dictated by: Raghav Tran M.D. on 07/10/2023 at 11:56 Approved by: Raghav Tran M.D. on 07/10/2023 at 11:59
[2023-07-10] MEDS: SODIUM CHLORIDE 0.9% 1,000 ML 1000 ML IV (11:36)
[2023-07-10 11:51] LABS: Add Manual Diff / Slide Review NO; Basophils Absolute Auto 0 /uL (0-100); Basophils Percent Auto 0.6 % (0-2); Eosinophils Absolute Auto 100 /uL (0-450); Eosinophils Percent Auto 0.9 % (2-4); Hematocrit 40.9 % (36-46); Hemoglobin 13.7 g/dL (12.0-16.0); Lymphocytes Absolute Auto 1800 /uL (1100-4500); Lymphocytes Percent Auto 25.6 % (25-40); Mean Corpuscular HGB Conc 33.4 % (30-36); Mean Corpuscular Hemoglobin 30.7 PG (26-34); Mean Corpuscular Volume 91.8 fL (80-100); Monocytes Absolute Auto 700 /uL (0-900); Monocytes Percent Auto 9.4 % (3-14); Neutrophils Absolute Auto 4600 /uL (1500-7000); Neutrophils Percent Auto 63.5 % (50-75); Platelet Count 236 X10^3/uL (150-400); Red Blood Cell Count 4.46 X10^6/uL (4.0-5.2); Red Cell Distribution Width 18.5 % (11.6-14.8); White Blood Cell Count 7.2 X10^3/uL (4.5-11.0)
[2023-07-10 11:58] LABS: Alanine Aminotransferase 46 IU/L (<35); Albumin 4.5 g/dL (3.5-5.0); Albumin Globulin Ratio 1.3 (1.0-2.8); Alkaline Phosphatase 77 U/L (38-126); Aspartate Aminotransferase 36 IU/L (14-36); BUN Creatinine Ratio 20.3 (6-22); Blood Urea Nitrogen 38 mg/dL (7-17); Calcium 10.3 mg/dL (8.4-10.2); Carbon Dioxide 17 mmol/L (22-32); Chloride 103 mmol/L (98-107); Creatine Kinase 34 U/L (30-135); Estimated Glomerular Filt Rate 29 mL/min (>60); Globulin 3.6 g/dL (1.7-4.1); Glucose 125 mg/dL (80-110); HEMOLYSIS < 15 (0-50); Lactate (Lactic Acid) 1.9 mmol/L (0.7-2.1); Lipase 333 U/L (23-300); Sodium 132 mmol/L (137-145); Total Protein 8.1 g/dL (6.3-8.2)
[2023-07-10 12:06] LABS: Influenza A - CEPHEID Flu A NEGATIVE (NEGATIVE); Influenza B - CEPHEID Flu B NEGATIVE (NEGATIVE); Respiratory Syncytial Virus Negative (Negative)
[2023-07-10 12:07] LABS: COVID-19 CEPHEID 4-PLEX PCR Negative (Negative)
[2023-07-10 12:10] LABS: Troponin I < 0.012 ng/mL (0.01-0.034)
--- NOTE | 2023-07-10 12:10 | DI.US.S_ITS ---
PROCEDURE: US RENAL COMPLETE INDICATIONS: HYPERKALEMIA AND ACUTE KIDNEY INJURY TECHNIQUE: Real-time scanning was performed of the kidneys and bladder, with image documentation. COMPARISON: [facility], , RENAL COMPLETE, 07/07/2008, 9:38. FINDINGS: Kidneys: Kidneys are normal in size. Right kidney measures 10.6 cm long; left kidney measures 10.3 cm long. Right renal cortical thickness is 1.4 cm; left renal cortical thickness is 1.7 cm. Renal cortical echotexture is normal. No hydronephrosis or nephrolithiasis. No suspicious solid mass lesions. Bladder: Pre-void bladder volume is 103 mL. The patient could not void. Pre-void images demonstrate no intraluminal masses or stones. On pre-void images, both ureteral jets are noted with color Doppler interrogation. (Of note, ureteral jets may not be detectable in up to 25% of cases due to insufficient differences in specific gravity between ureteral and bladder urine). Miscellaneous: Increased liver echogenicity with posterior attenuation. Hepatomegaly. IMPRESSION: Normal sonographic appearance of the kidneys. Enlarged, fatty liver. Dictated by: Raghav Tran M.D. on 07/10/2023 at 13:59 Approved by: Raghav Tran M.D. on 07/10/2023 at 14:00
[2023-07-10 12:14] LABS: Procalcitonin 0.09 ng/mL (<0.5)
[2023-07-10] MEDS: SODIUM POLYSTYRENE SULFON/SORB 15 GM/60 ML CUP 30 GM PO (12:14)
[2023-07-10] MEDS: DEXTROSE 50 % IN WATER 25 GM/50 ML SYRINGE IV (12:18)
[2023-07-10] MEDS: INSULIN REGULAR 100 UNIT/ML 3 ML VIAL IV (12:19)
[2023-07-10] MEDS: ALBUTEROL 2.5 MG/3 ML NEB (ADULT) 5 MG INH (12:34)
[2023-07-10 14:14] LABS: BUN Creatinine Ratio 21.5 (6-22); Blood Urea Nitrogen 37 mg/dL (7-17); Calcium 9.5 mg/dL (8.4-10.2); Carbon Dioxide 16 mmol/L (22-32); Chloride 105 mmol/L (98-107); Estimated Glomerular Filt Rate 32 mL/min (>60); Glucose 140 mg/dL (80-110); HEMOLYSIS 33 (0-50); Potassium 5.2 mmol/L (3.4-5.1); Sodium 134 mmol/L (137-145)
[2023-07-10 14:33] LABS: Creatine Kinase 37 U/L (30-135)
[2023-07-10 14:46] LABS: Troponin I < 0.012 ng/mL (0.01-0.034)
[2023-07-10 15:32] LABS: Appearance Urine UA CLOUDY; Color Urine UA YELLOW; Glucose Urine UA TRACE g/dL (Negative); Ketones Urine UA TRACE (NEGATIVE); Leukocyte Esterase Urine UA TRACE (NEGATIVE); Nitrite Urine UA NEGATIVE (Negative); Occult Blood Urine UA NEGATIVE (Negative); Protein Urine UA 1+ (Negative); Specific Gravity Urine UA 1.025 (1.000-1.035); Urobilinogen Urine UA 0.2 E.U./dL (0.2)
--- NOTE | 2023-07-10 15:40 | PC.NURSE ---
Pt ambulated to the bathroom without difficulty. pt called staff into the bathroom. developed Sob . Hr was up to 120. pt wheelchaired back to room. Dr. Prado aware
[2023-07-10 15:42] LABS: Bacteria Urine Many (>30); Bilirubin Urine UA 1+ (NEGATIVE); Culture Indicated Urine Specimen Cultured; RBC Urine 0-1/HPF (0-5/HPF); Squamous Epithelial Cell Urine 1-5 /HPF (0-5/HPF); WBC Urine 1-5/HPF (0-5/HPF)
[2023-07-10 16:20] LABS: D Dimer 689 ng/ml (<500)
--- NOTE | 2023-07-10 16:48 | DI.NM.S_ITS ---
PROCEDURE: NM PUL VENT AND PERFUSION RADIOPHARMACEUTICAL: Less than 3 mCi Tc-99m DTPA aerosol by inhalation and 10.8 mCi Tc-99m MAA intravenously. INDICATIONS: eval for PE TECHNIQUE: Ventilation images were obtained first with Tc-99m DTPA aerosol. Subsequently, perfusion images were acquired after intravenous injection of Tc-99m MAA. Anterior, posterior, RILEY, BART, RPO, LPO, left and right lateral views were obtained. COMPARISON: [facility], CR, XR CHEST 1V, 07/10/2023, 10:51. FINDINGS: The comparison chest x-ray dated 07/10/2023 demonstrate no focal infiltrate or pleural effusion. Technetium 99 M DTPA ventilation images demonstrate central airway deposition of aerosol. Perfusion images demonstrate no pleural based, segmental or subsegmental ventilation perfusion mismatches. Minor perfusion irregularities noted. IMPRESSION: Very low probability for acute pulmonary embolism. Dictated by: Gely Macdonald M.D. on 07/11/2023 at 11:40 Approved by: Gely Macdonald M.D. on 07/11/2023 at 11:42
--- NOTE | 2023-07-10 19:39 | PM.HP.1 ---
History of Present Illness History of Present Illness Date Patient Seen: 07/10/23 Time Patient Seen: 10:00 Date of Onset of Symptoms: 06/26/23 Chief complaint: vomiting, abd pain, chest pain Narrative: 67-year-old female with medical history significant diabetes, hypertension, hyperlipidemia, hyperlipidemia, h/o diverticulitis with perforation and colovaginal fistula, h/o DVT here with complaint of progressive abdominal pain with chest pain and shortness of breath and shortness of breath. Initially evaluated in clinic this morning with complaint of left lower quadrant/central pelvic pain that has slowly been progressing over the past 2-3 weeks. She also reports weakness to the point that she requires assistance from her to get to bathroom. Associated change in bowel habits with loose stools, sometimes 4-5 daily and then will go a few days without any BM. Hasn't looked at stool, unsure if any blood or abnormal appearance. Severe anorexia, smell/thought of food makes her feel nauseated. Also gets intermittent central chest discomfort starting yesterday, describes as if someone is punching her in the chest. Not associated with any movement/activity, happens randomly even when at rest. Subjective chills, lost thermometer so unsure if she's had fever. Denies vomiting, sore throat, cough, nasal congestion. Has been taking Theraflu to help sleep but nothing else for pain or diarrhea. Got flu shot early April this year. Was transferred to the emergency department for urgent evaluation of left lower quadrant/pelvic pain and chest discomfort given GI history significant for perforated diverticulitis s/p partial colon resection (2009) and colovaginal fistula (2006). In the emergency department CT scan of her abdomen showed no acute pathology, notable only for known diverticulosis. Notable labs include WBC 7.2, creatinine 1.72, GFR 32, D-dimer 689. Troponin was negative x2. Potassium initially of elevated to 7, treated in ER with improvement to 5.2 and no EKG changes noted. Remain persistently tachycardic despite fluid bolus and tachypneic with increased work of breathing despite normal O2 sat. Has a history of pulmonary embolism and DVT. No right heart strain noted on EKG but unable to get CT angio chest due to anaphylactic allergy to contrast dye. [facility] Medical History Nonsustained ventricular tachycardia Lower extremity weakness Primary osteoarthritis involving multiple joints Severe obesity Acquired hypothyroidism Type 2 diabetes mellitus with polyneuropathy Pes cavus of both feet Diverticulitis large intestine Mild CAD Ventral hernia IBS (irritable bowel syndrome) DDD (degenerative disc disease) Claustrophobia Cataract Headache History of migraine TIA (transient ischemic attack) (~2010) Dry eyes Frequent UTI Incontinence Impairment of balance Neuropathy Chronic pain Herniated disc Arthritis GERD (gastroesophageal reflux disease) Hemorrhoids High protein C activity level Vitamin D deficiency Benzodiazepine dependence, continuous Generalized anxiety disorder APOLONIA (obstructive sleep apnea) Diabetes Degenerative arthritis of left knee Leg swelling Rosacea Post traumatic stress disorder (PTSD) Stroke Migraines Headache ADHD Shoulder pain Osteoporosis Lumbar spine pain Foot pain Fibromyalgia Chronic back pain Cervical spine disease Carpal tunnel syndrome Ankle pain Rubella Mumps History of urinary incontinence (~2007) Diverticular disease (~2002) Colon polyps (~2017) Pulmonary embolism (~2006) Deep vein thrombosis (~2006) Colovaginal fistula (2006) Hypertension (~2002) Acute acalculous cholecystitis Surgical History History of arthroplasty of left knee (08/21/18) H/O spinal fusion History of exploratory laparotomy History of total knee arthroplasty (~2006) History of esophagogastroduodenoscopy (EGD) (~01/10/18) History of colonoscopy (~01/10/18) History of hysterectomy (~1990) History of gynecologic surgery (2006) History of unilateral oophorectomy (1992) History of unilateral oophorectomy (1993) Status post colonoscopy (2013) Status post delivery (1974) Status post delivery (1973) Status post exploratory laparotomy (2004) History of bilateral salpingo-oophorectomy (BSO) Status post hysterectomy (1990) Family History Father No problems noted. Mother No problems noted. Social History household members: significant other Smoking Status: Former smoker alcohol intake: never Meds Home Medications and Allergies Home Medications Medication Instructions Recorded Confirmed Type Respironics Dreamstation Auto CPAP #1 ea 08/07/18 07/10/23 History epinephrine 0.3 mg/0.3 mL 0.3 mg (0.3 mL) IM PRN PRN 02/11/19 07/10/23 Rx injection, auto-injector Anaphylaxis #2 ea aspirin 81 mg tablet,delayed 81 mg PO DAILY 09/12/19 07/10/23 History release atorvastatin 40 mg tablet 40 mg PO DAILY #90 tabs 05/24/22 07/10/23 Rx Diabetic shoes and inserts #1 ea 07/07/22 07/10/23 Rx hydralazine 25 mg tablet 12.5 mg PO BID 08/21/22 07/10/23 History lisinopril 40 mg tablet 40 mg PO BID #180 tabs 03/20/23 07/10/23 Rx levothyroxine 150 mcg tablet 150 mcg PO DAILY #90 tabs 05/16/23 07/10/23 Rx [address]abled [address] permit #1 ea 06/06/23 07/10/23 Rx metoprolol succinate 50 mg 50 mg PO BID #60 tabs 07/03/23 07/10/23 Rx tablet,extended release 24 hr tirzepatide 2.5 mg/0.5 mL 2.5 mg (0.5 mL) SUBCUT QWEEK 4 07/03/23 07/10/23 Rx subcutaneous pen injector weeks #2 mL (Jason) clonazepam 2 mg tablet 2 mg PO BID anxiety/sleep 07/10/23 07/10/23 History metformin 850 mg tablet 850 mg PO BID 07/10/23 07/10/23 History spironolactone 50 mg tablet 50 mg PO BID 07/10/23 07/10/23 History Allergies Allergy/AdvReac Type Severity Reaction Status Date / Time bee venom protein (honey bee) Allergy Severe Anaphylaxis Verified 07/10/23 10:45 iodine Allergy Severe Anaphylaxis Verified 07/10/23 10:45 Penicillins [PENICILLINS] Allergy Severe Anaphylaxis Verified 07/10/23 10:45 Sulfa (Sulfonamide Allergy Severe Anaphylaxis Verified 07/10/23 10:45 Antibiotics) [SULFA (SULFONAMIDE ANTIBIOTICS)] cephalexin [From KEFLEX] Allergy Intermediate Vomit Verified 07/10/23 10:45 codeine [CODEINE] Allergy Intermediate Vomit Verified 07/10/23 10:45 hydrocodone [HYDROCODONE] Allergy Intermediate Vomiting Verified 07/10/23 10:45 oxycodone [OXYCODONE] Allergy Intermediate Vomiting Verified 07/10/23 10:45 gold Au 198 AdvReac Mild SKIN Verified 07/10/23 10:45 IRRITATION gabapentin [GABAPENTIN] AdvReac Unknown makes pt. Verified 07/10/23 10:45 really mean Review of Systems Review of Systems ROS: Yes All systems reviewed with the patient and are negative except as otherwise documented Exam Vital Signs (past 8 hours): - 07/10/23 11:54 07/10/23 11:54 07/10/23 12:00 Pulse Rate 100 H 96 H Respiratory Rate 26 H 20 Blood Pressure 127/60 Pulse Oximetry 99 99 Oxygen Delivery Method Oxygen Flow Rate Fraction of Inspired Oxygen 07/10/23 12:00 07/10/23 12:30 07/10/23 12:30 Pulse Rate 96 H Respiratory Rate 21 Blood Pressure 120/67 146/65 H Pulse Oximetry 99 Oxygen Delivery Method Oxygen Flow Rate Fraction of Inspired Oxygen 07/10/23 12:35 07/10/23 12:45 07/10/23 12:45 Pulse Rate 98 H 100 H Respiratory Rate 18 20 Blood Pressure 140/51 L Pulse Oximetry 98 97 Oxygen Delivery Method Room Air Oxygen Flow Rate 0 Fraction of Inspired Oxygen 07/10/23 13:00 07/10/23 13:01 07/10/23 13:01 Pulse Rate 103 H 103 H Respiratory Rate Blood Pressure 119/58 L Pulse Oximetry 93 96 Oxygen Delivery Method Oxygen Flow Rate Fraction of Inspired Oxygen 07/10/23 13:16 07/10/23 13:16 07/10/23 13:30 Pulse Rate 109 H 108 H Respiratory Rate 24 19 Blood Pressure 124/62 Pulse Oximetry 98 98 Oxygen Delivery Method Oxygen Flow Rate Fraction of Inspired Oxygen 07/10/23 14:00 07/10/23 14:30 07/10/23 15:00 Pulse Rate 108 H 104 H 105 H Respiratory Rate 21 20 21 Blood Pressure Pulse Oximetry 97 96 92 Oxygen Delivery Method Oxygen Flow Rate Fraction of Inspired Oxygen 07/10/23 15:30 07/10/23 16:15 07/10/23 16:30 Pulse Rate 114 H 109 H 105 H Respiratory Rate 23 23 23 Blood Pressure 100/54 L Pulse Oximetry 97 99 98 Oxygen Delivery Method Room Air Oxygen Flow Rate Fraction of Inspired Oxygen 07/10/23 16:30 07/10/23 16:31 07/10/23 16:31 Pulse Rate 104 H 106 H Respiratory Rate 21 21 Blood Pressure 100/54 L Pulse Oximetry 97 97 Oxygen Delivery Method Oxygen Flow Rate Fraction of Inspired Oxygen 07/10/23 16:45 07/10/23 16:45 07/10/23 17:00 Pulse Rate 127 H 112 H Respiratory Rate 29 H 24 Blood Pressure 126/57 L Pulse Oximetry 97 97 Oxygen Delivery Method Oxygen Flow Rate Fraction of Inspired Oxygen 07/10/23 17:00 07/10/23 17:01 07/10/23 17:01 Pulse Rate 111 H Respiratory Rate 27 H Blood Pressure 108/49 L 113/60 Pulse Oximetry 96 Oxygen Delivery Method Oxygen Flow Rate Fraction of Inspired Oxygen 07/10/23 17:15 07/10/23 17:21 07/10/23 17:21 Pulse Rate 134 H 120 H Respiratory Rate 23 Blood Pressure 101/70 Pulse Oximetry 97 Oxygen Delivery Method Oxygen Flow Rate Fraction of Inspired Oxygen 07/10/23 17:30 07/10/23 17:30 Pulse Rate 114 H Respiratory Rate 23 Blood Pressure 90/54 L 100/54 L Pulse Oximetry 97 Oxygen Delivery Method Room Air Oxygen Flow Rate Fraction of Inspired Oxygen Fraction of Inspired Oxygen 21 SaO2/FiO2 Ratio 466 Oxygen Delivery Method Room Air Oxygen Flow Rate 0 Narrative Exam Narrative: General: Uncomfortable, mild distress HEENT: Normocephalic, EOMI, external ears and nose normal-appearing, moist mucous membranes CV: Tachycardia, normal rhythm, no murmur auscultated Resp: CTAB, no wheezing or rhonchi, normal work of breathing Abdomen: Soft, nondistended, +BS, TTP LLQ and pelvic region, no guarding or rebound tenderness Extremities: No cyanosis, clubbing, or edema; full range of motion Skin: No rash or lesions Neuro: Normal tone, moves all extremities, no focal sensory or motor deficits Psych: Appropriate mood and affect Objective Labs 07/10/23 11:35 07/10/23 13:51 Labs: Laboratory Results - last 24 hr 07/10/23 07/10/23 07/10/23 10:40 11:35 13:51 WBC 7.2 RBC 4.46 Hgb 13.7 Hct 40.9 MCV 91.8 MCH 30.7 MCHC 33.4 RDW 18.5 H Plt Count 236 Neut % (Auto) 63.5 Lymph % (Auto) 25.6 [place] % (Auto) 9.4 Eos % (Auto) 0.9 L Baso % (Auto) 0.6 Neut # (Auto) 4600 Lymph # (Auto) 1800 [place] # (Auto) 700 Eos # (Auto) 100 Baso # (Auto) 0 D-Dimer Sodium 132 L 134 L Potassium 7.0 H* 5.2 H D Chloride 103 105 Carbon Dioxide 17 L 16 L BUN 38 H 37 H Creatinine 1.87 H 1.72 H Estimated GFR 29 L 32 L BUN/Creatinine Ratio 20.3 21.5 Glucose 125 H 140 H Lactate 1.9 Calcium 10.3 H 9.5 Total Bilirubin 1.0 AST 36 ALT 46 H Alkaline Phosphatase 77 Total Creatine Kinase 34 37 Troponin I < 0.012 < 0.012 Total Protein 8.1 Albumin 4.5 Globulin 3.6 Albumin/Globulin Ratio 1.3 Lipase 333 H Procalcitonin 0.09 Urine Color Urine Appearance Urine pH Ur Specific [place] Urine Protein Urine Glucose (UA) Urine Ketones Urine Occult Blood Urine Nitrate Urine Bilirubin Ur Bilirubin Confirm Urine Urobilinogen Ur Leukocyte Esterase Urine RBC Urine WBC Ur Squamous Epith Cells Urine Bacteria Ur Culture Indicated? SARS-CoV-2 (PCR) Negative Influenza A (RT-PCR) Flu a negative Influenza B (RT-PCR) Flu b negative RSV (PCR) Negative 07/10/23 07/10/23 15:23 15:47 WBC RBC Hgb Hct MCV MCH MCHC RDW Plt Count Neut % (Auto) Lymph % (Auto) [place] % (Auto) Eos % (Auto) Baso % (Auto) Neut # (Auto) Lymph # (Auto) [place] # (Auto) Eos # (Auto) Baso # (Auto) D-Dimer 689 H Sodium Potassium Chloride Carbon Dioxide BUN Creatinine Estimated GFR BUN/Creatinine Ratio Glucose Lactate Calcium Total Bilirubin AST ALT Alkaline Phosphatase Total Creatine Kinase Troponin I Total Protein Albumin Globulin Albumin/Globulin Ratio Lipase Procalcitonin Urine Color Yellow Urine Appearance Cloudy Urine pH 5.0 Ur Specific [place] 1.025 Urine Protein 1+ H Urine Glucose (UA) Trace H Urine Ketones Trace H Urine Occult Blood Negative Urine Nitrate Negative Urine Bilirubin 1+ H Ur Bilirubin Confirm Cancelled Urine Urobilinogen 0.2 Ur Leukocyte Esterase Trace H Urine RBC 0-1/hpf Urine WBC 1-5/hpf Ur Squamous Epith Cells 1-5 /hpf Urine Bacteria Many (>30) H Ur Culture Indicated? Specimen cultured SARS-CoV-2 (PCR) Influenza A (RT-PCR) Influenza B (RT-PCR) RSV (PCR) Assessment & Plan Assessment and plan (1) Shortness of breath: Status: Acute (2) Tachycardia: Status: Acute (3) LLQ abdominal pain: Status: Acute (4) History of DVT (deep vein thrombosis): Problem details: 2006 after total knee replacement Status: Chronic (5) Type 2 diabetes mellitus with polyneuropathy: Status: Acute (6) Diarrhea: Qualifiers: Diarrhea type: unspecified type Qualified Code(s): R19.7 - Diarrhea, unspecified Status: Acute (7) Essential hypertension: Status: Chronic (8) Hyperlipidemia associated with type 2 diabetes mellitus: Status: Chronic (9) Acquired hypothyroidism: Status: Acute (10) Generalized anxiety disorder: Status: Chronic (11) Benzodiazepine dependence, continuous: Status: Chronic Assessment & Plan narrative: 67-year-old female with complex medical history most notable for history of diverticulitis with perforation, history of pulmonary embolism, hypertension, diabetes presenting with progressively worsening abdominal pain and new onset chest pain with shortness of breath. #SOB #Tachypnea #H/o DVT -Treatment dose lovenox 1.5 mg/kg daily -V/Q scan tomorrow #Tachycardia -Possibly 2/2 PE vs dehydration vs pain -S/p 1L IVF bolus in ED -mIVF: NS at 125 cc/hour #UTI -Met sepsis criteria on admission with elevated heart rate and respiratory rate. No leukocytosis but urine suspicious for infection with leuk esterase and bacteria. -S/p IVF bolus as above -Nitrofurantoin 100 mg b.i.d. 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
[2023-07-10] MEDS: SODIUM CHLORIDE 0.9% 1,000 ML 125 ML IV (21:41)
[2023-07-10] MEDS: METOPROLOL ER 50 MG TABLET PO (21:58)
[2023-07-10] MEDS: NITROFURANTOIN ER 100 MG CAPSULE PO (21:58)
[2023-07-10] MEDS: clonazePAM 0.5 MG TABLET 2 MG PO (21:58)
[2023-07-10] MEDS: lisinopriL 20 MG TABLET 40 MG PO (21:59)
[2023-07-10] MEDS: SPIRONOLACTONE 25 MG TABLET 50 MG PO (21:59)
[2023-07-10] MEDS: HYDRALAZINE 25 MG TABLET 12.5 MG PO (22:03)
[2023-07-11] VITALS (10 sets, daily range): BP systolic 82–106; BP diastolic 33–68; PULSE 83–95; RESP 16–19; TEMP 35.9–37.2; O2SAT 93–96
[2023-07-11] MEDS: SODIUM CHLORIDE 0.9% 1,000 ML 125 ML IV ×2 (05:40→16:00)
[2023-07-11] MEDS: LEVOTHYROXINE 75 MCG TABLET 150 MCG PO (05:43)
[2023-07-11 08:09] LABS: Add Manual Diff / Slide Review NO; Basophils Absolute Auto 0 /uL (0-100); Basophils Percent Auto 0.7 % (0-2); Eosinophils Absolute Auto 100 /uL (0-450); Eosinophils Percent Auto 1.6 % (2-4); Hematocrit 35.7 % (36-46); Hemoglobin 11.8 g/dL (12.0-16.0); Lymphocytes Absolute Auto 1500 /uL (1100-4500); Lymphocytes Percent Auto 22.6 % (25-40); Mean Corpuscular HGB Conc 33.2 % (30-36); Mean Corpuscular Hemoglobin 30.6 PG (26-34); Mean Corpuscular Volume 92.2 fL (80-100); Monocytes Absolute Auto 600 /uL (0-900); Monocytes Percent Auto 9.4 % (3-14); Neutrophils Absolute Auto 4200 /uL (1500-7000); Neutrophils Percent Auto 65.7 % (50-75); Platelet Count 196 X10^3/uL (150-400); Red Blood Cell Count 3.87 X10^6/uL (4.0-5.2); Red Cell Distribution Width 18.5 % (11.6-14.8); White Blood Cell Count 6.4 X10^3/uL (4.5-11.0)
[2023-07-11 08:32] LABS: Blood Urea Nitrogen 38 mg/dL (7-17); Calcium 8.5 mg/dL (8.4-10.2); Carbon Dioxide 18 mmol/L (22-32); Chloride 107 mmol/L (98-107); Estimated Glomerular Filt Rate 30 mL/min (>60); Glucose 116 mg/dL (80-110); HEMOLYSIS 39 (0-50); Potassium 5.3 mmol/L (3.4-5.1); Sodium 134 mmol/L (137-145)
[2023-07-11] MEDS: clonazePAM 0.5 MG TABLET 2 MG PO ×2 (09:14→20:39)
[2023-07-11] MEDS: ATORVASTATIN 20 MG TABLET 40 MG PO (09:14)
[2023-07-11] MEDS: ASPIRIN EC 81 MG TABLET PO (09:14)
[2023-07-11] MEDS: ENOXAPARIN 100 MG/ML SYRINGE 195 MG SUBCUT (09:15)
[2023-07-11] MEDS: METOPROLOL ER 50 MG TABLET PO ×2 (09:15→20:39)
[2023-07-11] MEDS: HYDRALAZINE 25 MG TABLET 12.5 MG PO (09:15)
[2023-07-11] MEDS: SPIRONOLACTONE 25 MG TABLET 50 MG PO (09:15)
[2023-07-11] MEDS: NITROFURANTOIN ER 100 MG CAPSULE PO (09:15)
[2023-07-11] MEDS: lisinopriL 20 MG TABLET 40 MG PO (09:16)
[2023-07-11] MEDS: cefTRIAXone 1,000 MG in SODIUM CHLORIDE 0.9% 100 ML 200 MG IV (11:35)
--- NOTE | 2023-07-11 13:09 | P.PN_ITS ---
Subjective Subjective Date Patient Seen: 07/11/23 Time Patient Seen: 13:10 Interval history: Charlotte is resting comfortably in bed today. Pain and shortness of breath are significantly improved compared to yesterday. Denies significant nausea, vomiting, abdominal pain. Requests that stool softeners be stopped due to loose stools. Looking forward to eating something that tastes better than her being brought this afternoon but knows to advance diet slowly. Exam Vital Signs (past 8 hours): - 07/11/23 07:09 07/11/23 09:15 07/11/23 09:15 Temperature 97.6 F Pulse Rate 93 H Respiratory Rate 18 Blood Pressure 100/57 L 100/57 L 100/57 L Pulse Oximetry 96 07/11/23 09:16 Temperature Pulse Rate Respiratory Rate Blood Pressure 100/57 L Pulse Oximetry Fraction of Inspired Oxygen 21 SaO2/FiO2 Ratio 466 Oxygen Delivery Method Room Air Oxygen Flow Rate 0 Narrative Exam Narrative: General: Uncomfortable, mild distress HEENT: Normocephalic, EOMI, external ears and nose normal-appearing, moist mucous membranes CV: Regular rate and rhythm, no murmur auscultated Resp: CTAB, no wheezing or rhonchi, normal work of breathing Abdomen: Soft, nondistended, +BS, minimal TTP LLQ and pelvic region improved compared to prior, no guarding or rebound tenderness Extremities: No cyanosis, clubbing, or edema; full range of motion Skin: No rash or lesions Neuro: Normal tone, moves all extremities, no focal sensory or motor deficits Psych: Appropriate mood and affect Objective Imaging Pulmonary Perfusion Imaging: Radiologist's impression: 07/11/2023 NM PUL VENT AND PERFUSION RADIOPHARMACEUTICAL: Less than 3 mCi Tc-99m DTPA aerosol by inhalation and 10.8 mCi Tc-99m MAA intravenously. INDICATIONS: eval for PE TECHNIQUE: Ventilation images were obtained first with Tc-99m DTPA aerosol. Subsequently, perfusion images were acquired after intravenous injection of Tc-99m MAA. Anterior, posterior, RILEY, DIVEHI, RPO, LPO, left and right lateral views were obtained. COMPARISON: [facility], CR, XR CHEST 1V, 07/10/2023, 10:51. FINDINGS: The comparison chest x-ray dated 07/10/2023 demonstrate no focal infiltrate or pleural effusion. Technetium 99 M DTPA ventilation images demonstrate central airway deposition of aerosol. Perfusion images demonstrate no pleural based, segmental or subsegmental ventilation perfusion mismatches. Minor perfusion irregularities noted. IMPRESSION: Very low probability for acute pulmonary embolism. Labs 07/11/23 07:50 07/11/23 08:00 Labs: Laboratory Results - last 24 hr 07/10/23 07/10/23 07/10/23 13:51 15:23 15:47 WBC RBC Hgb Hct MCV MCH MCHC RDW Plt Count Neut % (Auto) Lymph % (Auto) [place] % (Auto) Eos % (Auto) Baso % (Auto) Neut # (Auto) Lymph # (Auto) [place] # (Auto) Eos # (Auto) Baso # (Auto) D-Dimer 689 H Sodium 134 L Potassium 5.2 H D Chloride 105 Carbon Dioxide 16 L BUN 37 H Creatinine 1.72 H Estimated GFR 32 L BUN/Creatinine Ratio 21.5 Glucose 140 H Calcium 9.5 Total Creatine Kinase 37 Troponin I < 0.012 Urine Color Yellow Urine Appearance Cloudy Urine pH 5.0 Ur Specific [place] 1.025 Urine Protein 1+ H Urine Glucose (UA) Trace H Urine Ketones Trace H Urine Occult Blood Negative Urine Nitrate Negative Urine Bilirubin 1+ H Ur Bilirubin Confirm Cancelled Urine Urobilinogen 0.2 Ur Leukocyte Esterase Trace H Urine RBC 0-1/hpf Urine WBC 1-5/hpf Ur Squamous Epith Cells 1-5 /hpf Urine Bacteria Many (>30) H Ur Culture Indicated? Specimen cultured 07/11/23 07/11/23 07:50 08:00 WBC 6.4 RBC 3.87 L Hgb 11.8 L Hct 35.7 L MCV 92.2 MCH 30.6 MCHC 33.2 RDW 18.5 H Plt Count 196 Neut % (Auto) 65.7 Lymph % (Auto) 22.6 L [place] % (Auto) 9.4 Eos % (Auto) 1.6 L Baso % (Auto) 0.7 Neut # (Auto) 4200 Lymph # (Auto) 1500 [place] # (Auto) 600 Eos # (Auto) 100 Baso # (Auto) 0 D-Dimer Sodium 134 L Potassium 5.3 H Chloride 107 Carbon Dioxide 18 L BUN 38 H Creatinine 1.81 H Estimated GFR 30 L BUN/Creatinine Ratio 21.0 Glucose 116 H Calcium 8.5 Total Creatine Kinase Troponin I Urine Color Urine Appearance Urine pH Ur Specific [place] Urine Protein Urine Glucose (UA) Urine Ketones Urine Occult Blood Urine Nitrate Urine Bilirubin Ur Bilirubin Confirm Urine Urobilinogen Ur Leukocyte Esterase Urine RBC Urine WBC Ur Squamous Epith Cells Urine Bacteria Ur Culture Indicated? PFSH Medical History Nonsustained ventricular tachycardia Lower extremity weakness Primary osteoarthritis involving multiple joints Severe obesity Acquired hypothyroidism Type 2 diabetes mellitus with polyneuropathy Pes cavus of both feet Diverticulitis large intestine Mild CAD Ventral hernia IBS (irritable bowel syndrome) DDD (degenerative disc disease) Claustrophobia Cataract Headache History of migraine TIA (transient ischemic attack) (~2010) Dry eyes Frequent UTI Incontinence Impairment of balance Neuropathy Chronic pain Herniated disc Arthritis GERD (gastroesophageal reflux disease) Hemorrhoids High protein C activity level Vitamin D deficiency Benzodiazepine dependence, continuous Generalized anxiety disorder APOLONIA (obstructive sleep apnea) Diabetes Degenerative arthritis of left knee Leg swelling Rosacea Post traumatic stress disorder (PTSD) Stroke Migraines Headache ADHD Shoulder pain Osteoporosis Lumbar spine pain Foot pain Fibromyalgia Chronic back pain Cervical spine disease Carpal tunnel syndrome Ankle pain Rubella Mumps History of urinary incontinence (~2007) Diverticular disease (~2002) Colon polyps (~2017) Pulmonary embolism (~2006) Deep vein thrombosis (~2006) Colovaginal fistula (2006) Hypertension (~2002) Acute acalculous cholecystitis Surgical History History of arthroplasty of left knee (08/21/18) H/O spinal fusion History of exploratory laparotomy History of total knee arthroplasty (~2006) History of esophagogastroduodenoscopy (EGD) (~01/10/18) History of colonoscopy (~01/10/18) History of hysterectomy (~1990) History of gynecologic surgery (2006) History of unilateral oophorectomy (1992) History of unilateral oophorectomy (1993) Status post colonoscopy (2013) Status post delivery (1974) Status post delivery (1973) Status post exploratory laparotomy (2004) History of bilateral salpingo-oophorectomy (BSO) Status post hysterectomy (1990) Family History Father No problems noted. Mother No problems noted. Social History household members: significant other Smoking Status: Former smoker alcohol intake: never Assessment & Plan Assessment and plan (1) Shortness of breath: Status: Acute (2) Tachycardia: Status: Acute (3) LLQ abdominal pain: Status: Acute (4) ALFONSO (acute kidney injury): Status: Acute (5) Hyperkalemia: Status: Acute (6) History of DVT (deep vein thrombosis): Problem details: 2006 after total knee replacement Status: Chronic (7) Diarrhea: Qualifiers: Diarrhea type: unspecified type Qualified Code(s): R19.7 - Diarrhea, unspecified Status: Acute (8) Essential hypertension: Status: Chronic Assessment & Plan narrative: 67-year-old female admitted for progressively worsening abdominal pain and new onset chest pain with shortness of breath requiring V/Q scan. #SOB #Tachycardia #Tachypnea #H/o DVT -Resolved, likely due to dehydration vs pain -V/Q scan very low probability for pulmonary embolism -S/p 1L IVF bolus in ED -mIVF: NS at 125 cc/hour #UTI -Met sepsis criteria on admission with elevated heart rate and respiratory rate. No leukocytosis but urine suspicious for infection with leuk esterase and bacteria. -Ucx growing 2 species of Gram-negative bacilli, speciation and sensitivities pending -Ceftriaxone 1 g IV daily (s/p nitrofurantoin 100 mg b.i.d. 07/10-) #LLQ abdominal pain #T2DM #Diarrhea -Home metformin -Hold tirzepitide on suspicion this may be cause of abd pain/diarrhea given onset of symptoms soon after initiation of medication #Hypertension #Hyperkalemia -Home ASA, hydralazine -Hold lisinopril and spironolactone due to hyperkalemia and soft BP #Hyperlipidemia -Home atorvastatin #Hypothyroid -Home levothyroxine #Anxiety -Home clonazepam Diet: Diabetic diet DVT ppx: Lovenox 40mg subq BID Code: pants busheler Spent With Patient Time with patient: less than 30 minutes Quality VTE Deep Vein Thrombosis/Pulmonary Embolism Present on Admission: No
[2023-07-12] VITALS (9 sets, daily range): BP systolic 91–142; BP diastolic 53–84; PULSE 83–92; RESP 16–20; TEMP 36.1–36.9; O2SAT 96–98
[2023-07-12] MEDS: SODIUM CHLORIDE 0.9% 1,000 ML 125 ML IV ×2 (00:05→10:12)
[2023-07-12] MEDS: LEVOTHYROXINE 75 MCG TABLET 150 MCG PO (05:42)
[2023-07-12] MEDS: METOPROLOL ER 50 MG TABLET PO (08:11)
[2023-07-12] MEDS: ATORVASTATIN 20 MG TABLET 40 MG PO (08:11)
[2023-07-12] MEDS: SODIUM CHLORIDE 0.9% FLUSH 10 ML IV ×2 (08:12→20:56)
[2023-07-12] MEDS: ASPIRIN EC 81 MG TABLET PO (08:12)
[2023-07-12] MEDS: ENOXAPARIN 40 MG/0.4 ML SYRINGE SUBCUT ×2 (08:12→20:56)
[2023-07-12] MEDS: clonazePAM 0.5 MG TABLET 2 MG PO (08:12)
[2023-07-12 08:44] LABS: Add Manual Diff / Slide Review NO; Basophils Absolute Auto 0 /uL (0-100); Basophils Percent Auto 0.6 % (0-2); Eosinophils Absolute Auto 200 /uL (0-450); Eosinophils Percent Auto 3.4 % (2-4); Hematocrit 37.5 % (36-46); Hemoglobin 12.4 g/dL (12.0-16.0); Lymphocytes Absolute Auto 1800 /uL (1100-4500); Lymphocytes Percent Auto 28.5 % (25-40); Mean Corpuscular Hemoglobin 30.7 PG (26-34); Mean Corpuscular Volume 92.9 fL (80-100); Monocytes Absolute Auto 600 /uL (0-900); Monocytes Percent Auto 10.3 % (3-14); Neutrophils Absolute Auto 3500 /uL (1500-7000); Neutrophils Percent Auto 57.2 % (50-75); Platelet Count 192 X10^3/uL (150-400); Red Blood Cell Count 4.04 X10^6/uL (4.0-5.2); Red Cell Distribution Width 18.8 % (11.6-14.8); White Blood Cell Count 6.2 X10^3/uL (4.5-11.0)
[2023-07-12 08:50] LABS: Blood Urea Nitrogen 26 mg/dL (7-17); Calcium 8.6 mg/dL (8.4-10.2); Carbon Dioxide 17 mmol/L (22-32); Chloride 113 mmol/L (98-107); Estimated Glomerular Filt Rate 48 mL/min (>60); Glucose 128 mg/dL (80-110); HEMOLYSIS < 15 (0-50); Potassium 4.7 mmol/L (3.4-5.1); Sodium 140 mmol/L (137-145)
[2023-07-12] MEDS: MIDODRINE HCL 5 MG TABLET 2.5 MG PO (09:44)
--- NOTE | 2023-07-12 09:52 | PC.NURSE ---
pt's BP 91/53 after morning meds, pt symptomatic and c/o light headedness, she is on trendelenburg right now. talked to Dr. Terrell and notified him, pt also doesn't have an IV due to infiltration. VTO to Give midodrine 2.5mg PO now, place midline if possible.
--- NOTE | 2023-07-12 11:31 | CM.DPC ---
DCP Cont. Reviewed EMR and team rounds for status updates. Pt remains very weak, inpt team is working with stabilizing her blood pressure. CREDIT CASHIER left a message for Dr. Terrell's office to please call pt prior to d/c to set up a f/u PCP visit for post-discharge monitoring. No set date for d/c at this time.
[2023-07-12] MEDS: cefTRIAXone 1,000 MG in SODIUM CHLORIDE 0.9% 100 ML 200 MG IV (12:07)
--- NOTE | 2023-07-12 14:28 | PT.IIE ---
Current Diagnoses Hypothyroidism, unspecified (07/10/23) Type 2 diabetes mellitus with diabetic polyneuropathy (07/10/23) Type 2 diabetes mellitus with other specified complication (07/10/23) Hyperlipidemia, unspecified (07/10/23) Hyperkalemia (07/10/23) Sedative, hypnotic or anxiolytic dependence, uncomplicated (07/10/23) Generalized anxiety disorder (07/10/23) Essential (primary) hypertension (07/10/23) Acute kidney failure, unspecified (07/10/23) Tachycardia, unspecified (07/10/23) Shortness of breath (07/10/23) Left lower quadrant pain (07/10/23) Diarrhea, unspecified (07/10/23) Personal history of other venous thrombosis and embolism (07/10/23) Surgical History (Last Reviewed 12/29/22 @ 05:44 by Yohan Stinson MD) H/O spinal fusion History of arthroplasty of left knee (08/21/18) History of bilateral salpingo-oophorectomy (BSO) History of colonoscopy (~01/10/18) History of esophagogastroduodenoscopy (EGD) (~01/10/18) History of exploratory laparotomy History of gynecologic surgery (2006) History of hysterectomy (~1990) History of total knee arthroplasty (~2006) History of unilateral oophorectomy (1993) History of unilateral oophorectomy (1992) Status post delivery (1973) Status post delivery (1974) Status post colonoscopy (2013) Status post exploratory laparotomy (2004) Status post hysterectomy (1990) Medical History (Last Reviewed 07/10/23 @ 11:12 by Ulices Prado DO) Acquired hypothyroidism Acute acalculous cholecystitis ADHD Ankle pain Arthritis Benzodiazepine dependence, continuous Carpal tunnel syndrome Cataract Cervical spine disease Chronic back pain Chronic pain Claustrophobia Colon polyps (~2017) Colovaginal fistula (2006) DDD (degenerative disc disease) Deep vein thrombosis (~2006) Degenerative arthritis of left knee Diabetes Diverticular disease (~2002) Diverticulitis large intestine Dry eyes Fibromyalgia Foot pain Frequent UTI Generalized anxiety disorder GERD (gastroesophageal reflux disease) Headache Headache Hemorrhoids Herniated disc High protein C activity level History of migraine History of urinary incontinence (~2007) Hypertension (~2002) IBS (irritable bowel syndrome) Impairment of balance Incontinence Leg swelling Lower extremity weakness Lumbar spine pain Migraines Mild CAD Mumps Neuropathy Nonsustained ventricular tachycardia APOLONIA (obstructive sleep apnea) Osteoporosis Pes cavus of both feet Post traumatic stress disorder (PTSD) Primary osteoarthritis involving multiple joints Pulmonary embolism (~2006) Rosacea Rubella Severe obesity Shoulder pain Stroke TIA (transient ischemic attack) (~2010) Type 2 diabetes mellitus with polyneuropathy Ventral hernia Vitamin D deficiency Physical Therapy Inpatient Evaluation/Re-Eval M1 PT/OT-IP Prior Functional Status Start: 07/12/23 12:26 Freq: NEEDED Status: Active Protocol: Document 07/12/23 13:47 AMB (Rec: 07/12/23 14:27 AMB [id number]) Medical Review Prior Functional Status Medical History Reviewed Yes Communication WFL Mobility and Gait Pt's baseline is walking with a cane and furniture walking She has had 3 falls in the last 6 months. Social History Household Members significant other Living Arrangements Apartment/Condo Number of Floors (Floors) One Floor Number of Stairs To Enter/Railing? 2 steps no railing Home Equipment Front Wheel Walker,Four Wheel Walker,Straight Cane Employment Status Retired Additional Social History Comment Lives on [facility] M2 PT-IP Current Condition Start: 07/12/23 12:26 Freq: NEEDED Status: Active Protocol: Document 07/12/23 13:47 AMB (Rec: 07/12/23 14:27 AMB [id number]) Physical Therapy Current Condition Current Condition Evaluation Date 07/12/23 Treatment Diagnosis weakness/dizziness s/p sepsis Onset Date 07/10/23 M3 PT-IP Subjective Start: 07/12/23 12:26 Freq: NEEDED Status: Active Protocol: Document 07/12/23 13:47 AMB (Rec: 07/12/23 14:27 AMB [id number]) Subjective Physical Therapy Visit Type Type Initial Evaluation Visit Start Time 13:15 Visit Stop Time 13:50 Total Visit Minutes 35 Physical Therapy Visit Comments Patient Comments Pt willing to get up, she is in bed Therapy Pain Assessment Pain When Pain Assessed At Rest Pain Present Pain Present Denied Pain M4 PT-IP Mobility and Gait Start: 07/12/23 12:26 Freq: NEEDED Status: Active Protocol: Document 07/12/23 13:47 AMB (Rec: 07/12/23 14:27 AMB [id number]) PT-Bed Mobility Assessment Supine to Sit Supine to Sit Standby Assistance,Head of Bed Elevated,Bedrails Sit to Supine Sit to Supine Standby Assistance,Head of Bed Elevated,Bedrails PT-Transfer Assessment Sit to and From Stand Sit to and from Stand Contact Guard Assistance,1 Person Assistance,Use of Upper Extremities Equipment Transfer Assistive Device Bed Rail,Gait Belt,Front Wheeled Walker Transfers Transfer Destination Bed,Wheelchair Transfer Technique Stand Step Pivot Transfer Ability Level of Assist Contact Guard Assistance Comments Mobility Comments Charlotte has had some lightheadness and possible orthostatic symptoms. She sat up in bed by pulling on the bed rails and doing a sit up. Took BP in sitting, 111/76. Pt stood to FWW and took BP again (R wrist) 146/80. Gait Assessment Gait Gait Assistance Required: Contact Guard Assist Distance (Feet) 30 Assistive Devices Assistive Device Gait Belt,Front Wheeled Walker Factors Limiting Gait Function Factors Limiting Gait Function Decreased Activity Tolerance, Decreased Strength,Poor Balance Comments Gait Comments Pt ambulated 30 feet and then had increased symptoms of unsteadiness and needed to sit in a w/c. Took BP again and was 112/7? Pt unable to keep going. Pt got back into bed and became dizzy for a few seconds, does have a history of vertigo. M5 PT-IP Objective Assessments Start: 07/12/23 12:26 Freq: NEEDED Status: Active Protocol: Document 07/12/23 13:47 AMB (Rec: 07/12/23 14:27 AMB [id number]) Orientation Orientation/Cognition Level of Alertness Alert Gross Range of Motion Upper Extremity ROM Assessment Within Functional Limits Lower Extremity ROM Assessment Within Functional Limits Strength Upper Extremity Strength Assessment Within Functional Limits Lower Extremity Strength Assessment Bilaterally Impaired M7 PT-IP Assessment and Plan Start: 07/12/23 12:26 Freq: NEEDED Status: Active Protocol: Document 07/12/23 13:47 AMB (Rec: 07/12/23 14:27 AMB [id number]) PT Summary Assessment and Plan Potential Rehabilitation Potential Good Status of Condition at Evaluation Evolving Summary Impairments Strength,Balance,Bed Mobility, Transfers,Gait,Activity Tolerance Assessment Summary Charlotte needs to be able to walk 30' and up two steps to get into her apartment from the parking lot. At this time , she is having difficulty walking that far and we were unable to assess her stairs due to unsteadiness/fatigue/ dizziness. Her blood pressure has been low today, but during PT did not drop especially below 111/76, although systolic was measured to be in the 90s earlier today. She did have dizziness when getting into bed that reminded her she has a problem with her right ear (vertigo hx). A combination of orthostatics, hx vertigo, anxiety, and fatigue and weakness after her recent illness are contributing to her having difficulty walking. I did discuss home health vs rehab, and she was resistant to both of those ideas as she has had both in the past and did not feel that they were helpful. At this point though, she was not able to demonstrate the gait and ability to do stairs to get herself safely into her apartment, could consider trying to get blood pressure more consistent and then if pt is continuing to be dizzy and unstable with her gait she could consider rehab vs home health. Goals Bed Mobility Goal Standby Assistance Transfer Goal Standby Assistance Gait Goal Standby Assistance Gait Distance 150 Other Goals Ascend 2 steps with FWW Days to Meet Goals 3 Frequency of Treatment Frequency Of Treatment Once a Day Treatment Plan Physical Therapy Treatment Plan Bed Mobility Training,Transfer Training,Gait Training, Balance Retraining, Neuromuscular Re-ed Other Recommendations and Next Treatment Stairs-- taking into Focus consideration pt's blood pressure and dizziness Discharge Recommendations PT Discharge Recommendations Home with 24/ Assist Available,Home Health Transportation Needs at Discharge Private Vehicle
--- NOTE | 2023-07-12 18:31 | PM.PN.1 ---
Subjective Subjective Date Patient Seen: 07/12/23 Time Patient Seen: 12:15 Interval history: Charlotte is feeling fairly well overall today. No longer has any pain or discomfort but she is experiencing some lightheadedness/dizziness with low blood pressures. Is hopeful she can be discharged home soon and rest in her own bed. Observed to be able to sit up on side of bed and then stand next to bed without a drop in BP. Exam Vital Signs (past 8 hours): - 07/12/23 11:43 07/12/23 12:00 07/12/23 16:17 Temperature 98.5 F 97.5 F L Pulse Rate 89 85 Respiratory Rate 20 18 Blood Pressure 111/75 106/67 115/68 Pulse Oximetry 96 98 Oxygen Flow Rate 0 0 Fraction of Inspired Oxygen 21 SaO2/FiO2 Ratio 466 Oxygen Delivery Method Room Air Oxygen Flow Rate 0 Narrative Exam Narrative: General: Uncomfortable, mild distress HEENT: Normocephalic, EOMI, external ears and nose normal-appearing, moist mucous membranes CV: Regular rate and rhythm, no murmur auscultated Resp: CTAB, no wheezing or rhonchi, normal work of breathing Abdomen: Soft, nondistended, nontender, +BS, no guarding or rebound tenderness Extremities: No cyanosis, clubbing, or edema; full range of motion Skin: No rash or lesions Neuro: Normal tone, moves all extremities, no focal sensory or motor deficits Psych: Appropriate mood and affect Objective Labs 07/12/23 08:21 07/12/23 08:21 Labs: Laboratory Results - last 24 hr 07/12/23 08:21 WBC 6.2 RBC 4.04 Hgb 12.4 Hct 37.5 MCV 92.9 MCH 30.7 MCHC 33.0 RDW 18.8 H Plt Count 192 Neut % (Auto) 57.2 Lymph % (Auto) 28.5 [place] % (Auto) 10.3 Eos % (Auto) 3.4 Baso % (Auto) 0.6 Neut # (Auto) 3500 Lymph # (Auto) 1800 [place] # (Auto) 600 Eos # (Auto) 200 Baso # (Auto) 0 Sodium 140 Potassium 4.7 Chloride 113 H Carbon Dioxide 17 L BUN 26 H Creatinine 1.24 H Estimated GFR 48 L BUN/Creatinine Ratio 21.0 Glucose 128 H Calcium 8.6 PFSH Medical History Nonsustained ventricular tachycardia Lower extremity weakness Primary osteoarthritis involving multiple joints Severe obesity Acquired hypothyroidism Type 2 diabetes mellitus with polyneuropathy Pes cavus of both feet Diverticulitis large intestine Mild CAD Ventral hernia IBS (irritable bowel syndrome) DDD (degenerative disc disease) Claustrophobia Cataract Headache History of migraine TIA (transient ischemic attack) (~2010) Dry eyes Frequent UTI Incontinence Impairment of balance Neuropathy Chronic pain Herniated disc Arthritis GERD (gastroesophageal reflux disease) Hemorrhoids High protein C activity level Vitamin D deficiency Benzodiazepine dependence, continuous Generalized anxiety disorder APOLONIA (obstructive sleep apnea) Diabetes Degenerative arthritis of left knee Leg swelling Rosacea Post traumatic stress disorder (PTSD) Stroke Migraines Headache ADHD Shoulder pain Osteoporosis Lumbar spine pain Foot pain Fibromyalgia Chronic back pain Cervical spine disease Carpal tunnel syndrome Ankle pain Rubella Mumps History of urinary incontinence (~2007) Diverticular disease (~2002) Colon polyps (~2017) Pulmonary embolism (~2006) Deep vein thrombosis (~2006) Colovaginal fistula (2006) Hypertension (~2002) Acute acalculous cholecystitis Surgical History History of arthroplasty of left knee (08/21/18) H/O spinal fusion History of exploratory laparotomy History of total knee arthroplasty (~2006) History of esophagogastroduodenoscopy (EGD) (~01/10/18) History of colonoscopy (~01/10/18) History of hysterectomy (~1990) History of gynecologic surgery (2006) History of unilateral oophorectomy (1992) History of unilateral oophorectomy (1993) Status post colonoscopy (2013) Status post delivery (1974) Status post delivery (1973) Status post exploratory laparotomy (2004) History of bilateral salpingo-oophorectomy (BSO) Status post hysterectomy (1990) Family History Father No problems noted. Mother No problems noted. Social History household members: significant other Smoking Status: Former smoker alcohol intake: never Assessment & Plan Assessment and plan (1) Shortness of breath: Status: Acute (2) Tachycardia: Status: Acute (3) LLQ abdominal pain: Status: Acute (4) ALFONSO (acute kidney injury): Status: Acute (5) Hyperkalemia: Status: Acute (6) History of DVT (deep vein thrombosis): Problem details: 2006 after total knee replacement Status: Chronic (7) Diarrhea: Qualifiers: Diarrhea type: unspecified type Qualified Code(s): R19.7 - Diarrhea, unspecified Status: Acute (8) Essential hypertension: Status: Chronic (9) Vertigo: Status: Acute Assessment & Plan narrative: 67-year-old female admitted for abdominal pain and new onset chest pain with shortness of breath, now resolved. #LLQ abdominal pain #Diarrhea #T2DM -Suspect due to GLP-1 RA as these are common side effects with onset of symptoms soon after initiation of medication -Home metformin -Hold tirzepitide #Dizziness #Chronic BPPV -Likely chronic vertigo with some possible contribution of lower than normal BP -Hold/reduce dose of possible orthostatic provoking meds #UTI -Met sepsis criteria on admission with elevated heart rate and respiratory rate. No leukocytosis but urine suspicious for infection with leuk esterase and bacteria. -Ucx grew E coli and Klebsiella pneumoniae, both sensitive to cetriaxone -Ceftriaxone 1 g IV daily (07/11-), s/p nitrofurantoin 100 mg b.i.d. (07/10-) #ALFONSO -Improving, likely due to dehydration along with GLP-1 RA #SOB #Tachycardia #Tachypnea #H/o DVT -Resolved, likely due to dehydration vs pain -V/Q scan very low probability for pulmonary embolism -S/p 1L IVF bolus in ED -PO hydration #Hypertension #Hyperkalemia -Stop lisinopril, hydralazine, spironolactone due to hyperkalemia and soft BP #Hyperlipidemia -Home atorvastatin #Hypothyroid -Home levothyroxine #Anxiety -Home clonazepam decreased to 1mg BID Diet: Diabetic diet DVT ppx: Lovenox 40mg subq BID Code: FULL Dispo: Anticipate discharge home tomorrow, possibly with HH per PT recs Time Spent With Patient Time with patient: less than 30 minutes Quality VTE Deep Vein Thrombosis/Pulmonary Embolism Present on Admission: No
[2023-07-12] MEDS: clonazePAM 0.5 MG TABLET 1 MG PO (20:56)
[2023-07-13] VITALS (7 sets, daily range): BP systolic 102–137; BP diastolic 63–81; PULSE 69–89; RESP 17–19; TEMP 36–36.6; O2SAT 94–100
[2023-07-13] MEDS: clonazePAM 0.5 MG TABLET 1 MG PO ×5 (00:10→23:55)
[2023-07-13] MEDS: IBUPROFEN 600 MG TABLET PO (04:04)
[2023-07-13] MEDS: LEVOTHYROXINE 75 MCG TABLET 150 MCG PO (05:31)
[2023-07-13] MEDS: ATORVASTATIN 20 MG TABLET 40 MG PO (08:44)
[2023-07-13] MEDS: DOCUSATE 100 MG CAPSULE PO (08:44)
[2023-07-13] MEDS: SODIUM CHLORIDE 0.9% FLUSH 10 ML IV ×2 (08:45→20:34)
--- NOTE | 2023-07-13 10:10 | PT.IPTN ---
Current Diagnoses Hypothyroidism, unspecified (07/10/23) Type 2 diabetes mellitus with diabetic polyneuropathy (07/10/23) Type 2 diabetes mellitus with other specified complication (07/10/23) Hyperlipidemia, unspecified (07/10/23) Hyperkalemia (07/10/23) Sedative, hypnotic or anxiolytic dependence, uncomplicated (07/10/23) Generalized anxiety disorder (07/10/23) Essential (primary) hypertension (07/10/23) Acute kidney failure, unspecified (07/10/23) Tachycardia, unspecified (07/10/23) Shortness of breath (07/10/23) Left lower quadrant pain (07/10/23) Diarrhea, unspecified (07/10/23) Dizziness and giddiness (07/10/23) Personal history of other venous thrombosis and embolism (07/10/23) Physical Therapy Treatment Note M2 PT-IP Current Condition Start: 07/12/23 12:26 Freq: NEEDED Status: Active Protocol: Document 07/12/23 13:47 AMB (Rec: 07/12/23 14:27 AMB [id number]) Physical Therapy Current Condition Current Condition Evaluation Date 07/12/23 Treatment Diagnosis weakness/dizziness s/p sepsis Onset Date 07/10/23 M3 PT-IP Subjective Start: 07/12/23 12:26 Freq: NEEDED Status: Active Protocol: Document 07/13/23 10:10 AB (Rec: 07/13/23 12:15 AB [id number]) Subjective Physical Therapy Visit Type Type Treatment Note Visit Start Time 10:10 Visit Stop Time 11:05 Total Visit Minutes 55 Number of CAMP PROGRAM DIRECTOR Visits 0 Physical Therapy Visit Comments Patient Comments agreeable to do PT M4 PT-IP Mobility and Gait Start: 07/12/23 12:26 Freq: NEEDED Status: Active Protocol: Document 07/13/23 10:10 AB (Rec: 07/13/23 12:15 AB [id number]) PT-Bed Mobility Assessment Rolling Level of Assist Standby Assistance Supine to Sit Supine to Sit 1 Person Assistance,Bedrails PT-Transfer Assessment Sit to and From Stand Sit to and from Stand Contact Guard Assistance,1 Person Assistance,Use of Upper Extremities Equipment Transfer Assistive Device Gait Belt,Front Wheeled Walker Orthotic/Prosthetic Devices or Brace: No Transfers Transfer Destination Chair Transfer Technique ambulated Transfer Ability Level of Assist Contact Guard Assistance,1 Person Assistance,Use of Upper Extremities Comments Mobility Comments pt supine in bed. Her S.O. in room with pt. pt agreeable to do PT. BP in supineL 105/ 70. completed supine to sit SBA with use of bed rail to assist. pt able to sit on EOB SBA. BP in sitting. 129/82. c/o slight lightheadedness but dissipated. BP after ~ 1min of sittin/89. pt completed sit to stand CGA and ambulated in room using FWW CGA ~ 60 ft. pt requiring standing rest breaks in between walks and c/o feeling weak. presents with unsteady gait throughout ambulation. pt sat on chair. BP checked: 127/103. checked BP again: 144 /62. pt c/o lightheadedness and feeling tired but agreed to do stairs. pt stated that she has 2 platform steps to get inside her house. pt educated pt on how to do platform step using FWW. completed sit to stand CGA and completed up/down platform step CGA to min A. c/o lightheadedness. position chair behind pt to sit. BP checked: 116/78. pt rested and dizziness decreased. BP checked again : 150/63. pt completed sit to stand cGA and ambulated to the chair using FWW CGA ~ 10 ft. Checked BP after transfers: 111/74. positioned pt on the chair. call light and table placed within reach. nursing staff aware of pt's orthostatic hypotension. caregiver training set up for tomorrow at 9 am with pt's significant other who will be staying in room with pt. Gait Assessment Gait Gait Assistance Required: Contact Guard Assist Distance (Feet) 60 Able to Maintain Weight Bearing Status Yes During Gait Assistive Devices Assistive Device Gait Belt,Front Wheeled Walker Orthotic/Prosthetic Devices or Brace: Yes Gait Deviations General Gait Pattern Decreased Stride Length, Decreased Feet Clearance,Step- to Gait Factors Limiting Gait Function Factors Limiting Gait Function Decreased Activity Tolerance, Decreased Strength,Limited Range of Motion,Poor Balance, Poor Safety Awareness Stair Climbing Assessment Evaluation Level of Assist On Stairs Contact Guard Assistance, Minimal Assistance,1 Person Assistance Devices Stair Climbing Assistive Devices Front Wheel Walker Technique/Endurance Stair Climbing Direction Ascend and Descend Stair Climbing Technique Step to Step Number of Steps Climbed 1 Stair Climbing Set # Repetitions (reps) 1 PT-Balance Assessment Sitting Balance and Reactions Static Sitting Balance Ability Good Dynamic Sitting Balance Ability Fair Standing Balance and Reactions Static Standing Balance Ability Fair Dynamic Standing Balance Ability Fair Device Used FWW M5 PT-IP Objective Assessments Start: 07/12/23 12:26 Freq: NEEDED Status: Active Protocol: Document 07/12/23 13:47 AMB (Rec: 07/12/23 14:27 AMB [id number]) Orientation Orientation/Cognition Level of Alertness Alert Gross Range of Motion Upper Extremity ROM Assessment Within Functional Limits Lower Extremity ROM Assessment Within Functional Limits Strength Upper Extremity Strength Assessment Within Functional Limits Lower Extremity Strength Assessment Bilaterally Impaired M6 PT-IP Treatment Start: 07/12/23 12:26 Freq: NEEDED Status: Active Protocol: Document 07/13/23 10:10 AB (Rec: 07/13/23 12:15 AB [id number]) Physical Therapy Treatment Education Education Provided Safety M7 PT-IP Assessment and Plan Start: 07/12/23 12:26 Freq: NEEDED Status: Active Protocol: Document 07/13/23 10:10 AB (Rec: 07/13/23 12:15 AB [id number]) PT Summary Assessment and Plan Potential Rehabilitation Potential Fair Summary Impairments Pain,ROM,Strength,Balance, Sensation,Bed Mobility, Transfers,Gait,Activity Tolerance Progress Towards Goals Slow Progress due to Medical Issues,Slow Progress due to Activity Tolerance,Slow Progress - Other Assessment Summary pt requiring CGA with transfers and ambulation using FWW but requiring CGA to min A with up/down step using FWW. pt has decrease activity tolerance affecting mobility independent with c/o fatigue/ weakness and also has orthostatic hypotension with c /o lightheadedness. pt wants to go home and significant other will be assisting pt at home. caregiver training set up at 9am tomorrow and will continue to assess. pt will benefit from HHPT. Goals Bed Mobility Goal Standby Assistance Transfer Goal Standby Assistance,Front Wheeled Walker Gait Goal Standby Assistance,Front Wheel Walker Gait Distance 150 Other Goals Ascend 2 platform steps with FWW Days to Meet Goals 10 Frequency of Treatment Frequency Of Treatment Once a Day Treatment Plan Physical Therapy Treatment Plan Bed Mobility Training,Transfer Training,Gait Training, Balance Retraining,Discharge Planning,Neuromuscular Re-ed Other Recommendations and Next Treatment caregiver trainin/23@ 9am Focus Discharge Recommendations PT Discharge Recommendations Home with 12/02 Assist Available,Home Health Transportation Needs at Discharge Private Vehicle
[2023-07-13] MEDS: cefTRIAXone 1,000 MG in SODIUM CHLORIDE 0.9% 100 ML 200 MG IV (11:25)
--- NOTE | 2023-07-13 12:42 | CM.DPNOTE ---
Addendum entered by RAVI Oliveros 07/13/23 16:40: FOOD STOREROOM CLERK coordinated with PT and provider throughout afternoon. PT unable to work with PT again today for CG training. FOOD STOREROOM CLERK reported back to pt. Pt disappointed in not going home this evening. FOOD STOREROOM CLERK told pt [facility] can accept for services. Provider agreeable to HH and home with a walker, FOOD STOREROOM CLERK placed HH order and walker order in. Provider agreed to medical necessity of priority boarding pass. CC Vilma scanned in face to face into chart. Plan: home with spouse, likely tomorrow, to Sunday. CM team will assist in ferry priority boarding pass at dc. CM team will notify [facility] upon dc. CM team will continue to follow closely. SL Original Note: DCP Note FOOD STOREROOM CLERK reviewed EMR. Per provider note, pt may dc home today pending BP. Per PT note, rec home with assistance and HH. FOOD STOREROOM CLERK entered room and introduced self and role. Pt resting in bed. Pt reports eager to go home to Sunday. Pt confirms lives at home with spouse. Open to HH. Pt interested in ferry pass if [place]. FOOD STOREROOM CLERK spoke with Kaitlynn at [facility] . Kaitlynn able to accept her for PT services. Will need dc summary, face to face, and order. FOOD STOREROOM CLERK lvm with Dr. Terrell admin team to inquire about the dc timeline and if he would approve a HH referral. FOOD STOREROOM CLERK completed face to face. Plan: home with spouse support when medically stable to Sunday. CM team will continue to pursue HH if approved by provider. CM team will continue to follow closely. RAVI Oliveros
--- NOTE | 2023-07-13 16:14 | PM.PN.1 ---
Subjective Subjective Date Patient Seen: 07/13/23 Time Patient Seen: 13:00 Interval history: Charlotte resting comfortably in bed this afternoon. Continues to have intermittent dizziness when up and walking with PT, was unable to navigate practice steps earlier today. Blood pressure fluctuating from low 110s to 140s but no correlation with sudden change in position. She really would like to go home as soon as possible but understands the need to ensure safe discharge. Exam Vital Signs (past 8 hours): - 07/13/23 08:19 07/13/23 12:00 Temperature 97.4 F L 97.2 F L Pulse Rate 82 87 Respiratory Rate 19 18 Blood Pressure 119/67 110/67 Pulse Oximetry 99 100 Oxygen Flow Rate 0 0 Fraction of Inspired Oxygen 21 SaO2/FiO2 Ratio 466 Oxygen Delivery Method Room Air Oxygen Flow Rate 0 Narrative Exam Narrative: General: Uncomfortable, mild distress HEENT: Normocephalic, EOMI, external ears and nose normal-appearing, moist mucous membranes CV: Regular rate and rhythm, no murmur auscultated Resp: CTAB, no wheezing or rhonchi, normal work of breathing Abdomen: Soft, nondistended, nontender, +BS, no guarding or rebound tenderness Extremities: No cyanosis, clubbing, or edema; full range of motion Skin: No rash or lesions Neuro: Normal tone, moves all extremities, no focal sensory or motor deficits Psych: Appropriate mood and affect Objective Labs 07/12/23 08:21 07/12/23 08:21 [facility] Medical History Nonsustained ventricular tachycardia Lower extremity weakness Primary osteoarthritis involving multiple joints Severe obesity Acquired hypothyroidism Type 2 diabetes mellitus with polyneuropathy Pes cavus of both feet Diverticulitis large intestine Mild CAD Ventral hernia IBS (irritable bowel syndrome) DDD (degenerative disc disease) Claustrophobia Cataract Headache History of migraine TIA (transient ischemic attack) (~2010) Dry eyes Frequent UTI Incontinence Impairment of balance Neuropathy Chronic pain Herniated disc Arthritis GERD (gastroesophageal reflux disease) Hemorrhoids High protein C activity level Vitamin D deficiency Benzodiazepine dependence, continuous Generalized anxiety disorder APOLONIA (obstructive sleep apnea) Diabetes Degenerative arthritis of left knee Leg swelling Rosacea Post traumatic stress disorder (PTSD) Stroke Migraines Headache ADHD Shoulder pain Osteoporosis Lumbar spine pain Foot pain Fibromyalgia Chronic back pain Cervical spine disease Carpal tunnel syndrome Ankle pain Rubella Mumps History of urinary incontinence (~2007) Diverticular disease (~2002) Colon polyps (~2017) Pulmonary embolism (~2006) Deep vein thrombosis (~2006) Colovaginal fistula (2006) Hypertension (~2002) Acute acalculous cholecystitis Surgical History History of arthroplasty of left knee (08/21/18) H/O spinal fusion History of exploratory laparotomy History of total knee arthroplasty (~2006) History of esophagogastroduodenoscopy (EGD) (~01/10/18) History of colonoscopy (~01/10/18) History of hysterectomy (~1990) History of gynecologic surgery (2006) History of unilateral oophorectomy (1992) History of unilateral oophorectomy (1993) Status post colonoscopy (2013) Status post delivery (1974) Status post delivery (1973) Status post exploratory laparotomy (2004) History of bilateral salpingo-oophorectomy (BSO) Status post hysterectomy (1990) Family History Father No problems noted. Mother No problems noted. Social History household members: significant other Smoking Status: Former smoker alcohol intake: never Assessment & Plan Assessment and plan (1) Vertigo: Status: Acute (2) Shortness of breath: Status: Acute (3) Tachycardia: Status: Acute (4) LLQ abdominal pain: Status: Acute (5) Diarrhea: Qualifiers: Diarrhea type: unspecified type Qualified Code(s): R19.7 - Diarrhea, unspecified Status: Acute (6) ALFONSO (acute kidney injury): Status: Acute (7) Hyperkalemia: Status: Acute (8) History of DVT (deep vein thrombosis): Problem details: 2006 after total knee replacement Status: Chronic (9) Essential hypertension: Status: Chronic Assessment & Plan narrative: 67-year-old female admitted for abdominal pain and new onset chest pain with shortness of breath, now resolved. #Dizziness #Chronic BPPV -Likely chronic vertigo with some possible contribution of lower than normal BP -Hold/reduce dose of possible orthostatic provoking meds #Hypertension #Hyperkalemia -Stop lisinopril, hydralazine, spironolactone due to hyperkalemia and soft BP #ALFONSO -Improving, likely due to dehydration along with GLP-1 #UTI -Met sepsis criteria on admission with elevated heart rate and respiratory rate. No leukocytosis but urine suspicious for infection with leuk esterase and bacteria. -Ucx grew E coli and Klebsiella pneumoniae, both sensitive to cetriaxone -Ceftriaxone 1 g IV daily (07/11-), s/p nitrofurantoin 100 mg b.i.d. (07/10-) #LLQ abdominal pain #Diarrhea #T2DM -Suspect due to GLP-1 RA as these are common side effects with onset of symptoms soon after initiation of medication -Home metformin -Hold tirzepitideRA #SOB #Tachycardia #Tachypnea #H/o DVT -Resolved, likely due to dehydration vs pain -V/Q scan very low probability for pulmonary embolism -S/p 1L IVF bolus in ED -PO hydration #Hyperlipidemia -Home atorvastatin #Hypothyroid -Home levothyroxine #Anxiety -Home clonazepam decreased to 1mg BID Diet: Diabetic diet DVT ppx: Lovenox 40mg subq BID Code: FULL Dispo: Anticipate discharge home tomorrow with HH per PT recs Time Spent With Patient Time with patient: less than 30 minutes Quality VTE Deep Vein Thrombosis/Pulmonary Embolism Present on Admission: No
[2023-07-13] MEDS: ENOXAPARIN 40 MG/0.4 ML SYRINGE SUBCUT (20:34)
[2023-07-14 03:45] VITALS: BP 153/89; PULSE 86; RESP 16; TEMP 36.2; O2SAT 97
[2023-07-14] MEDS: LEVOTHYROXINE 75 MCG TABLET 150 MCG PO (05:34)
--- NOTE | 2023-07-14 09:10 | PT.IPTN ---
Current Diagnoses Hypothyroidism, unspecified (07/10/23) Type 2 diabetes mellitus with diabetic polyneuropathy (07/10/23) Type 2 diabetes mellitus with other specified complication (07/10/23) Hyperlipidemia, unspecified (07/10/23) Hyperkalemia (07/10/23) Sedative, hypnotic or anxiolytic dependence, uncomplicated (07/10/23) Generalized anxiety disorder (07/10/23) Essential (primary) hypertension (07/10/23) Acute kidney failure, unspecified (07/10/23) Tachycardia, unspecified (07/10/23) Shortness of breath (07/10/23) Left lower quadrant pain (07/10/23) Diarrhea, unspecified (07/10/23) Dizziness and giddiness (07/10/23) Personal history of other venous thrombosis and embolism (07/10/23) Physical Therapy Treatment Note M2 PT-IP Current Condition Start: 07/12/23 12:26 Freq: NEEDED Status: Active Protocol: Document 07/12/23 13:47 AMB (Rec: 07/12/23 14:27 AMB [id number]) Physical Therapy Current Condition Current Condition Evaluation Date 07/12/23 Treatment Diagnosis weakness/dizziness s/p sepsis Onset Date 07/10/23 M3 PT-IP Subjective Start: 07/12/23 12:26 Freq: NEEDED Status: Active Protocol: Document 07/14/23 09:10 AB (Rec: 07/14/23 13:03 AB [id number]) Subjective Physical Therapy Visit Type Type Treatment Note Visit Start Time 09:10 Visit Stop Time 10:00 Total Visit Minutes 50 Number of FASHION BUYER Visits 0 Physical Therapy Visit Comments Patient Comments I am going home today!!! M4 PT-IP Mobility and Gait Start: 07/12/23 12:26 Freq: NEEDED Status: Active Protocol: Document 07/14/23 09:10 AB (Rec: 07/14/23 13:03 AB [id number]) PT-Bed Mobility Assessment Supine to Sit Supine to Sit Standby Assistance,Head of Bed Elevated PT-Transfer Assessment Sit to and From Stand Sit to and from Stand Standby Assistance,1 Person Assistance,Use of Upper Extremities Equipment Transfer Assistive Device Gait Belt,Front Wheeled Walker Orthotic/Prosthetic Devices or Brace: No Transfers Transfer Destination Toilet Transfer Technique ambulated Transfer Ability Level of Assist Standby Assistance,1 Person Assistance,Use of Upper Extremities Comments Mobility Comments pt supine in bed and stated that she is going home today adamantly. told pt that, that is why caregiver training was set up. pt wanting to use the toilet first. completed bed mobility supine to sit SBA with HOB elevated. pt completed sit to stand SBA and ambulated to the toilet using FWW SBA. pt able to complete toileting needs SBA. ambulated towards the sink using FWW SBA and was able to complete handwashing SBA. pt ambulated to the chair using FWW SBA. caregiver training conducted. educated spouse on how to use safety belt and how to assist pt. Spouse required repetitions on how to put belt on and also needed frequent seated rest breaks in between. PT clarify to pt and spouse if spouse will really be able to assist pt and both said Yes . educated spouse on how to assist pt and how to do stairs . spouse assisted pt with sit to stand, ambulated pt to the platform step using FWW ~ 3 ft and assisted pt with up/down platform step using FWW CGA to min A. required initial cue from PT on how to assist but completed without cue on 2nd attempt. pt sat back on the chair. positioned pt on the chair. call light and table placed within reach. informed and educated pt and spouse regarding safety and energy conservation. recommending seating resting stations set up from the car all the way to the house and another person to assist pt and spouse upon d/c. spouse contacted pt's friend to come in and assist and set up chairs for them to sit. informed pt that she can have the friend follow with her 4WW so that she can sit to rest when needed. pt agreed. Gait Assessment Gait Gait Assistance Required: Standby Assistance Distance (Feet) 15 Able to Maintain Weight Bearing Status Yes During Gait Assistive Devices Assistive Device Gait Belt,Front Wheeled Walker Orthotic/Prosthetic Devices or Brace: No Gait Deviations General Gait Pattern Decreased Stride Length, Decreased Feet Clearance,Step- to Gait Factors Limiting Gait Function Factors Limiting Gait Function Decreased Activity Tolerance, Decreased Strength,Poor Balance,Poor Safety Awareness, Respiratory Distress Stair Climbing Assessment Evaluation Level of Assist On Stairs Contact Guard Assistance, Minimal Assistance Devices Stair Climbing Assistive Devices Front Wheel Walker Technique/Endurance Stair Climbing Direction Ascend and Descend Stair Climbing Technique Step to Step Number of Steps Climbed 1 Stair Climbing Set # Repetitions (reps) 2 M5 PT-IP Objective Assessments Start: 07/12/23 12:26 Freq: NEEDED Status: Active Protocol: Document 07/12/23 13:47 AMB (Rec: 07/12/23 14:27 AMB [id number]) Orientation Orientation/Cognition Level of Alertness Alert Gross Range of Motion Upper Extremity ROM Assessment Within Functional Limits Lower Extremity ROM Assessment Within Functional Limits Strength Upper Extremity Strength Assessment Within Functional Limits Lower Extremity Strength Assessment Bilaterally Impaired M6 PT-IP Treatment Start: 07/12/23 12:26 Freq: NEEDED Status: Active Protocol: Document 07/14/23 09:10 AB (Rec: 07/14/23 13:03 AB [id number]) Physical Therapy Treatment Education Education Provided Safety M7 PT-IP Assessment and Plan Start: 07/12/23 12:26 Freq: NEEDED Status: Active Protocol: Document 07/14/23 09:10 AB (Rec: 07/14/23 13:03 AB [id number]) PT Summary Assessment and Plan Potential Rehabilitation Potential Fair Summary Impairments Pain,ROM,Strength,Balance, Coordination,Sensation,Tone, Cognition,Bed Mobility, Transfers,Gait,Activity Tolerance Progress Towards Goals Slow Progress due to Activity Tolerance Assessment Summary caregiver training conducted and spouse was able to assist pt, but limited due to spouse' s own medical issues. Recommending another person to assist both pt and spouse upon d/c to enter the house and spouse has set up his friend to assist them later today when pt goes home. Goals Bed Mobility Goal Standby Assistance Transfer Goal Standby Assistance,Front Wheeled Walker Gait Goal Standby Assistance,Front Wheel Walker Gait Distance 150 Other Goals Ascend 2 platform steps with FWW Days to Meet Goals 10 Frequency of Treatment Frequency Of Treatment Once a Day Treatment Plan Physical Therapy Treatment Plan Bed Mobility Training,Transfer Training,Gait Training, Balance Retraining,Discharge Planning,Neuromuscular Re-ed Discharge Recommendations PT Discharge Recommendations Home with 12/02 Assist Available,Home Health Transportation Needs at Discharge Private Vehicle
[2023-07-14] MEDS: ENOXAPARIN 40 MG/0.4 ML SYRINGE SUBCUT (09:25)
[2023-07-14] MEDS: clonazePAM 0.5 MG TABLET 1 MG PO (09:25)
[2023-07-14] MEDS: METOPROLOL ER 50 MG TABLET PO (09:26)
[2023-07-14] MEDS: ATORVASTATIN 20 MG TABLET 40 MG PO (09:26)
[2023-07-14] MEDS: DOCUSATE 100 MG CAPSULE PO (09:26)
[2023-07-14 10:01] VITALS: BP 143/82; PULSE 94; RESP 18; TEMP 36.6; O2SAT 99
--- NOTE | 2023-07-14 11:28 | P.DS_ITS ---
History of Present Illness History of Present Illness Chief complaint: vomiting, abd pain, chest pain Narrative: chief complaint: N/V/dizziness She is feeling well this morning ate her breakfast and is requesting to go home. Discharge plan seems ok for that - will get pass for ferry and has car here. BP and BGs are stable off meds, she is hydrating well, will plan on close outpt f/up. Discharge Providers Provider Date of admission: 07/10/23 16:53 Discharge Date: 07/14/23 Primary care physician: Janes Terrell MD Consults: 07/12/23 12:30 Consult to Physical Therapy Evaluate & Treat Comment: Physician Instructions: Evaluate and Treat 07/12/23 15:12 Consult to Discharge Planning Routine Comment: PT recs home with 12/02 assist available, HH 07/13/23 13:23 Consult to Home Health Routine Comment: Reason For Exam: PT/OT Consult to Physical Therapy Evaluate & Treat Comment: Physician Instructions: walker for home use Discharge provider: Booker Dooley MD Summary Hospital Course Discharge Diagnosis: #Dizziness #Chronic BPPV #Hypertension #Hyperkalemia #ALFONSO #UTI with sepsis #LLQ abdominal pain #Diarrhea #T2DM #SOB #Tachycardia #Tachypnea #H/o DVT #Hyperlipidemia #Hypothyroid #Anxiety Hospital Course: Ms. Rico is a pleasant patient who presented with acute weakness and hypotension likely secondary to oversensitivity to a recent GLP-1 medication as well as a UTI and possibly a viral URI as well. She was admitted for abx and IVF and recovered over the course of several days. Her blood pressure was a major issue with frequent hypotensive spells with MAP in the 50s while alert and tracking. By [employer] she had discontinued all her usual BP and diabetic medications and was feeling better. She feels well enough to go home - she and her live in [place] and have a car here she can use to get home with a priority boarding pass. Her appetite is resuming she able to void and walk with assistance - ok to go home and f/up with clinic in outpt setting. UTI adequately treated no need for discharge antibiotics. Status at Discharge Cognitive/behavioral status at discharge: at baseline, oriented Functional status at discharge: uses cane/walker Overall status at discharge: patient is progressing back to baseline Exam Vital Signs (past 8 hours): - 07/14/23 03:45 07/14/23 10:01 Temperature 97.1 F L 97.9 F Pulse Rate 86 94 H Respiratory Rate 16 18 Blood Pressure 153/89 H 143/82 H Pulse Oximetry 97 99 Oxygen Flow Rate 0 Fraction of Inspired Oxygen 21 SaO2/FiO2 Ratio 466 Oxygen Delivery Method Room Air Oxygen Flow Rate 0 Narrative Exam Narrative: sitting in bed looking alert Cardio Other: regular rate, S1/S2 GI Other: soft nontender nondistended Neuro Other: alert awake oriented x3, movng all limbs Extrem Other: no pedal edema Objective Labs 07/12/23 08:21 07/12/23 08:21 [facility] Medical History Nonsustained ventricular tachycardia Lower extremity weakness Primary osteoarthritis involving multiple joints Severe obesity Acquired hypothyroidism Type 2 diabetes mellitus with polyneuropathy Pes cavus of both feet Diverticulitis large intestine Mild CAD Ventral hernia IBS (irritable bowel syndrome) DDD (degenerative disc disease) Claustrophobia Cataract Headache History of migraine TIA (transient ischemic attack) (~2010) Dry eyes Frequent UTI Incontinence Impairment of balance Neuropathy Chronic pain Herniated disc Arthritis GERD (gastroesophageal reflux disease) Hemorrhoids High protein C activity level Vitamin D deficiency Benzodiazepine dependence, continuous Generalized anxiety disorder APOLONIA (obstructive sleep apnea) Diabetes Degenerative arthritis of left knee Leg swelling Rosacea Post traumatic stress disorder (PTSD) Stroke Migraines Headache ADHD Shoulder pain Osteoporosis Lumbar spine pain Foot pain Fibromyalgia Chronic back pain Cervical spine disease Carpal tunnel syndrome Ankle pain Rubella Mumps History of urinary incontinence (~2007) Diverticular disease (~2002) Colon polyps (~2017) Pulmonary embolism (~2006) Deep vein thrombosis (~2006) Colovaginal fistula (2006) Hypertension (~2002) Acute acalculous cholecystitis Surgical History History of arthroplasty of left knee (08/21/18) H/O spinal fusion History of exploratory laparotomy History of total knee arthroplasty (~2006) History of esophagogastroduodenoscopy (EGD) (~01/10/18) History of colonoscopy (~01/10/18) History of hysterectomy (~1990) History of gynecologic surgery (2006) History of unilateral oophorectomy (1992) History of unilateral oophorectomy (1993) Status post colonoscopy (2013) Status post delivery (1974) Status post delivery (1973) Status post exploratory laparotomy (2004) History of bilateral salpingo-oophorectomy (BSO) Status post hysterectomy (1990) Family History Father No problems noted. Mother No problems noted. Social History household members: significant other Smoking Status: Former smoker alcohol intake: never Discharge Assessment & Plan Assessment and Plan Assessment: 67-year-old female admitted for abdominal pain and new onset chest pain with shortness of breath, now resolved. #Dizziness #Chronic BPPV stop beta julián on discharge she has had very soft BPs this admission stay hydrated #Hypertension #Hyperkalemia Hold metoprolol. she has not been needing her other BP meds but should be ok to reinitiate those as her BP recovers. Keep track of BP and bring to outpt f/up appt. #ALFONSO improved s/p hydration #UTI with sepsis Met sepsis criteria on admission with elevated heart rate and respiratory rate. No leukocytosis but urine suspicious for infection with leuk esterase and bacteria. Ucx grew E coli and Klebsiella pneumoniae, both sensitive to cetriaxone s/p treatment with ceftriaxone for 3 days after nitrofurantoin #LLQ abdominal pain #Diarrhea #T2DM started after 3rd dose of tirzepatide - seemed to work a bit too well for her, hold metformin and tirzepatide ongoing #SOB #Tachycardia #Tachypnea #H/o DVT Resolved, likely due to dehydration vs pain, V/Q scan showed very low probability for pulmonary embolism, continue to feed and hydrate #Hyperlipidemia stable continue home atorvastatin #Hypothyroid stable continue home levothyroxine #Anxiety Home clonazepam decreased to 1mg BID dispo: home with family and HH if possible MDM: Diet: Diabetic diet DVT ppx: Lovenox 40mg subq BID Code: full PCP: FRANCIS Discharge Plan Discharge Plan Patient Disposition: Home Health Service Discharge orders & Medications Prescriptions: Continued levothyroxine 150 mcg tablet 150 mcg PO DAILY Qty: 90 1RF (DME) Disabled parking permit See Rx Instructions .Route .MEDSUPPLY Qty: 1 0RF Rx Instructions: Valid for 12 months. epinephrine 0.3 mg/0.3 mL auto-injector 0.3 mg IM PRN PRN (Reason: Anaphylaxis) Qty: 2 1RF atorvastatin 40 mg tablet 40 mg PO DAILY Qty: 90 3RF (DME) Diabetic shoes and inserts See Rx Instructions .Route .MEDSUPPLY Qty: 1 0RF Rx Instructions: Diabetic shoes and inserts hydralazine 25 mg tablet 12.5 mg PO BID lisinopril 40 mg tablet 40 mg PO BID Qty: 180 3RF Rx Instructions: This is increased dose per Cardiology. Patient is almost out -- please refill as soon as possible. Thank you 03/20/23. aspirin 81 mg tablet,delayed release (DR/EC) 81 mg PO DAILY clonazepam 2 mg tablet 2 mg PO BID spironolactone 50 mg tablet 50 mg PO BID Rx Instructions: Increasing this med in effort to get better control on blood pressure if tolerable urination and no dizziness with it. Will try increased dose over the next month. Can double up on existing script of 50mg pills until that script gone. (DME) Respironics Dreamstation Auto CPAP Qty: 1 Dose Instruction: As directed Patient Comments: Pressure: 6-14 cmH2O DME:[facility] Rx Instructions: As directed Discontinued Mounjaro 2.5 mg/0.5 mL pen injector 2.5 mg SUBCUT QWEEK 28 Days Qty: 2 11RF metoprolol succinate 50 mg tablet extended release 24 hr 50 mg PO BID Qty: 60 11RF metformin 850 mg tablet 850 mg PO BID Follow up/Referrals: Janes Terrell MD [Primary Care Provider] - Visit Report/Discharge Packet Instructions: Diarrhea, DI for Urinary Tract Infection (UTI), DI for Acute Kidney Injury Stand Alone Forms: Patient Portal/API, Stroke Signs & Symptoms Discharge Data Primary Care Provider: Janes Terrell Quality VTE Deep Vein Thrombosis/Pulmonary Embolism Present on Admission: No
[2023-07-14] MEDS: cefTRIAXone 1,000 MG in SODIUM CHLORIDE 0.9% 100 ML 200 MG IV (11:55)
--- NOTE | 2023-07-14 11:56 | CM.DPC ---
DCP Cont: Patient is to be discharging back to [place]. [place] DellaW, assisted this DC Ceiling Installer with a ferry pass. Spouse in the room. Will be going home with [facility]. Face to face and orders were already sent. Called Olya, [facility] director, and left her a message that patient is discharging, and called the main number and left a message. Will fax over the DC Summary to [facility]. Gave patient a copy of the IMM to patient. P: Patient should be discharging home today, she has her priority boarding pass, with [facility], have left messages with [facility] and will fax DC Summary. Caro Ponce RN/Gear Design Engineer
--- NOTE | 2023-07-14 14:09 | PC.NURSE ---
Pt A&Ox4, VSS. Midline removed by KALIE Benoit. Discharge information reviewed with patient and spouse, both able to teach back independently. Belongings gathered. Patient escorted downstairs in wheelchair by MATT Dunlap and discharge home with ride from spouse.
== END 2023-07-14 13:40 | disposition home health service (06) | DRG 872 ==
LOC: ED 16:53 → AC 16:54
PROVIDERS: Admitting Provider Family Medicine; Emergency Provider Emergency Medicine; PCP Family Medicine; Referring Provider Emergency Medicine; Visit Provider Family Medicine
DX: A41.9 Sepsis, unspecified organism (principal); N39.0 Urinary tract infection, site not specified; N17.9 Acute kidney failure, unspecified; R06.02 Shortness of breath; R00.0 Tachycardia, unspecified; E11.9 Type 2 diabetes mellitus without complications; I10 Essential (primary) hypertension; E78.5 Hyperlipidemia, unspecified; E03.9 Hypothyroidism, unspecified; F41.9 Anxiety disorder, unspecified; E87.5 Hyperkalemia; B96.20 Unspecified Escherichia coli [E. coli] as the cause of diseases classified elsewhere; B96.1 Klebsiella pneumoniae [K. pneumoniae] as the cause of diseases classified elsewhere; R42 Dizziness and giddiness; I95.9 Hypotension, unspecified; R19.7 Diarrhea, unspecified; R10.32 Left lower quadrant pain; Z79.84 Long term (current) use of oral hypoglycemic drugs; Z87.891 Personal history of nicotine dependence; Z86.718 Personal history of other venous thrombosis and embolism
CPT/HCPCS: 0241U; 36415; 71045; 74176; 76770; 78582; 80048; 80053; 81001; 82550; 82962; 83605; 83690; 84145; 84484; 85025; 85379; 87040; 87077; 87086; 87186; 93005; 93010; 94640; 96374; 96375; 97116; 97162; 97530; 99222; 99232; 99284; 99285; A9539; A9540; J0696; J1650; J7613

== ENCOUNTER → 2023-10-16 07:34 | Outpatient (CLI) | payer MEDICARE, OTHER, SELFPAY ==
[2023-08-30 14:01] VITALS: BMI 43.7
[2023-10-16 08:54] LABS: Add Manual Diff / Slide Review NO; Basophils Absolute Auto 0 /uL (0-100); Basophils Percent Auto 0.5 % (0-2); Eosinophils Absolute Auto 100 /uL (0-450); Eosinophils Percent Auto 1.2 % (2-4); Hematocrit 43.5 % (36-46); Hemoglobin 14.1 g/dL (12.0-16.0); Lymphocytes Absolute Auto 2700 /uL (1100-4500); Lymphocytes Percent Auto 30.6 % (25-40); Mean Corpuscular HGB Conc 32.3 % (30-36); Mean Corpuscular Hemoglobin 29.5 PG (26-34); Mean Corpuscular Volume 91.5 fL (80-100); Monocytes Absolute Auto 500 /uL (0-900); Monocytes Percent Auto 5.7 % (3-14); Neutrophils Absolute Auto 5400 /uL (1500-7000); Platelet Count 253 X10^3/uL (150-400); Red Blood Cell Count 4.76 X10^6/uL (4.0-5.2); Red Cell Distribution Width 14.7 % (11.6-14.8); White Blood Cell Count 8.8 X10^3/uL (4.5-11.0)
[2023-10-16 09:04] LABS: Hemoglobin A1C% w Est Avg Glu 7.7 % (4.0-6.0)
[2023-10-16 09:11] LABS: Alanine Aminotransferase 35 IU/L (<35); Albumin Globulin Ratio 1.4 (1.0-2.8); Alkaline Phosphatase 79 U/L (38-126); Aspartate Aminotransferase 33 IU/L (14-36); BUN Creatinine Ratio 20.9 (6-22); Bilirubin Total 0.6 mg/dL (0.2-1.3); Blood Urea Nitrogen 28 mg/dL (7-17); Calcium 9.8 mg/dL (8.4-10.2); Carbon Dioxide 19 mmol/L (22-32); Chloride 109 mmol/L (98-107); Cholesterol 131 mg/dL (140-199); Estimated Glomerular Filt Rate 44 mL/min (>60); Globulin 2.9 g/dL (1.7-4.1); Glucose 153 mg/dL (80-110); HDL Cholesterol 44 mg/dL (40-60); HEMOLYSIS < 15 (0-50); LDL Cholesterol Calculated 46 mg/dL (<100); Sodium 138 mmol/L (137-145); Total Protein 6.9 g/dL (6.3-8.2); Triglycerides 205 mg/dL (35-150)
[2023-10-16 09:38] LABS: Thyroid Stimulating Hormone 1.69 uIU/mL (0.47-4.68)
[2023-10-16 09:55] LABS: Hep C Virus Ab w/Reflex Quant NEGATIVE s/c (NEGATIVE)
== END ==
PROVIDERS: PCP Family Medicine; Referring Provider Family Medicine; Visit Provider Family Medicine
DX: E11.42 Type 2 diabetes mellitus with diabetic polyneuropathy (principal); I10 Essential (primary) hypertension; E66.01 Morbid (severe) obesity due to excess calories; E11.69 Type 2 diabetes mellitus with other specified complication; E78.5 Hyperlipidemia, unspecified; Z11.59 Encounter for screening for other viral diseases; E03.9 Hypothyroidism, unspecified; R10.9 Unspecified abdominal pain; G89.29 Other chronic pain; N17.9 Acute kidney failure, unspecified; E87.5 Hyperkalemia; M54.59 Other low back pain
CPT/HCPCS: 36415; 80053; 80061; 83036; 84443; 85025; 86803

== ENCOUNTER → 2024-04-07 07:22 | Outpatient (CLI) | payer MEDICARE, OTHER, SELFPAY ==
[2023-08-30 14:01] VITALS: BMI 43.7
[2024-04-07 08:53] LABS: Appearance Urine UA CLEAR; Bilirubin Urine UA NEGATIVE (NEGATIVE); Color Urine UA YELLOW; Glucose Urine UA 1+ g/dL (Negative); Ketones Urine UA TRACE (NEGATIVE); Leukocyte Esterase Urine UA NEGATIVE (NEGATIVE); Nitrite Urine UA NEGATIVE (Negative); Occult Blood Urine UA NEGATIVE (Negative); Protein Urine UA 2+ (Negative); Specific Gravity Urine UA >=1.030 (1.000-1.035); Urobilinogen Urine UA 0.2 E.U./dL (0.2)
[2024-04-07 09:10] LABS: pH Urine UA 5.5 (4.5-8.0)
[2024-04-07 09:11] LABS: Alanine Aminotransferase 28 IU/L (<35); Albumin 3.5 g/dL (3.5-5.0); Albumin Globulin Ratio 1.2 (1.0-2.8); Alkaline Phosphatase 92 U/L (38-126); Aspartate Aminotransferase 28 IU/L (14-36); BUN Creatinine Ratio 19.2 (6-22); Bacteria Urine Occasional (0-1); Bilirubin Total 0.6 mg/dL (0.2-1.3); Blood Urea Nitrogen 15 mg/dL (7-17); Calcium 9.3 mg/dL (8.4-10.2); Carbon Dioxide 24 mmol/L (22-32); Chloride 106 mmol/L (98-107); Cholesterol 171 mg/dL (140-199); Culture Indicated Urine Cult Not Indicated; Estimated Glomerular Filt Rate > 60 mL/min (>60); Glucose 231 mg/dL (80-110); HDL Cholesterol 53 mg/dL (40-60); HEMOLYSIS 40 (0-50); LDL Cholesterol Calculated 74 mg/dL (<100); RBC Urine 0-1/HPF (0-5/HPF); Sodium 136 mmol/L (137-145); Squamous Epithelial Cell Urine 0-1 /HPF (0-5/HPF); Total Protein 6.5 g/dL (6.3-8.2); Triglycerides 222 mg/dL (35-150); Urine Volume 10mL (spun); WBC Urine 0-1/HPF (0-5/HPF)
[2024-04-07 09:28] LABS: Hemoglobin A1C% w Est Avg Glu 8.2 % (4.0-6.0)
== END ==
PROVIDERS: PCP Family Medicine; Referring Provider Family Medicine; Visit Provider Family Medicine
DX: E11.42 Type 2 diabetes mellitus with diabetic polyneuropathy (principal); I10 Essential (primary) hypertension; E11.69 Type 2 diabetes mellitus with other specified complication; E78.5 Hyperlipidemia, unspecified
CPT/HCPCS: 36415; 80053; 80061; 81001; 83036

== ENCOUNTER 2024-05-23 15:20 | Emergency (ER) | payer MEDICARE, OTHER, SELFPAY ==
[2023-08-30 14:01] VITALS: BMI 43.7
[2024-05-23] VITALS (19 sets, daily range): BP systolic 204–260; BP diastolic 95–136; PULSE 73–97; RESP 11–24; TEMP 36.8; O2SAT 95–99; BMI 41.5
--- NOTE | 2024-05-23 16:04 | ED.FALL ---
HPI - Fall General Chief Complaint: Fall Stated Complaint: Fall x2, hit head on baseboard heater and wall Time Seen by Provider: 05/23/24 15:54 Source: patient Mode of arrival: Family Vehicle History of Present Illness HPI Narrative: Patient is a 68-year-old female with history of CVA right-sided deficits at age of 19 while 8 months but without significant residual deficits, diabetes, hypothyroid, hypertension presenting today with headache elevated blood pressure. She reports that she is fallen at least 3 or 4 times feels like her legs just give out from under her. She fell a couple weeks ago hit her head on a baseboard. She feels nauseous in the morning but no consistent nausea or vomiting. He denies any chest pain or palpitations. She does report today that she is significant lower extremity edema. Which is new for her. Related Data Home Medications Medication Instructions Recorded Confirmed Respironics Dreamstation Auto CPAP #1 ea 08/07/18 04/17/24 aspirin 81 mg tablet,delayed 81 mg PO DAILY 09/12/19 04/17/24 release magnesium 100 mg PO 1XD 01/09/24 04/17/24 Previous Rx's Medication Instructions Recorded epinephrine 0.3 mg/0.3 mL 0.3 mg (0.3 mL) IM PRN PRN 02/11/19 injection, auto-injector Anaphylaxis #2 ea Diabetic shoes and inserts #1 ea 07/07/22 lisinopril 40 mg tablet 40 mg PO BID #180 tabs 03/20/23 Disabled [address] permit #1 ea 07/18/23 hydrochlorothiazide 25 mg tablet 25 mg PO QAM #30 tabs 10/16/23 meclizine 12.5 mg tablet 12.5 mg PO BID-QID PRN dizziness 11/08/23 #90 tabs ondansetron 8 mg disintegrating 8 mg PO Q12H PRN nausea and 11/08/23 tablet vomiting #30 tabs atorvastatin 40 mg tablet 40 mg PO DAILY #90 tabs 11/29/23 levothyroxine 150 mcg tablet 150 mcg PO DAILY #90 tabs 11/29/23 clonazepam 2 mg tablet 2 mg PO BID PRN anxiety #56 tabs 04/14/24 metformin 1,000 mg tablet 1,000 mg PO BID #180 tabs 04/17/24 sumatriptan succinate 50 mg tablet See Rx Instructions PO .COMPLEX 04/17/24 #20 tabs lisinopril 40 mg tablet 40 mg PO BID #180 tabs 05/02/24 hydrochlorothiazide 25 mg tablet 25 mg PO DAILY #30 tabs 05/23/24 Allergies Allergy/AdvReac Type Severity Reaction Status Date / Time bee venom protein (honey bee) Allergy Severe Anaphylaxis Verified 04/17/24 09:33 iodine Allergy Severe Anaphylaxis Verified 04/17/24 09:33 Penicillins [PENICILLINS] Allergy Severe Anaphylaxis Verified 04/17/24 09:33 Sulfa (Sulfonamide Allergy Severe Anaphylaxis Verified 04/17/24 09:33 Antibiotics) [SULFA (SULFONAMIDE ANTIBIOTICS)] cephalexin [From KEFLEX] Allergy Intermediate Vomit Verified 04/17/24 09:33 codeine [CODEINE] Allergy Intermediate Vomit Verified 04/17/24 09:33 hydrocodone [HYDROCODONE] Allergy Intermediate Vomiting Verified 04/17/24 09:33 oxycodone [OXYCODONE] Allergy Intermediate Vomiting Verified 04/17/24 09:33 gold Au 198 AdvReac Mild SKIN Verified 04/17/24 09:33 IRRITATION gabapentin [GABAPENTIN] AdvReac Unknown makes pt. Verified 04/17/24 09:33 really mean Patient History Medical History (Updated 05/23/24 @ 18:06 by Tangela Adam DO) Nonsustained ventricular tachycardia Lower extremity weakness Primary osteoarthritis involving multiple joints Severe obesity Acquired hypothyroidism Type 2 diabetes mellitus with polyneuropathy Pes cavus of both feet Diverticulitis large intestine Mild CAD Ventral hernia IBS (irritable bowel syndrome) DDD (degenerative disc disease) Claustrophobia Cataract Headache History of migraine TIA (transient ischemic attack) (~2010) Dry eyes Frequent UTI Incontinence Impairment of balance Neuropathy Chronic pain Herniated disc Arthritis GERD (gastroesophageal reflux disease) Hemorrhoids High protein C activity level Vitamin D deficiency Benzodiazepine dependence, continuous Generalized anxiety disorder APOLONIA (obstructive sleep apnea) Diabetes Degenerative arthritis of left knee Leg swelling Rosacea Post traumatic stress disorder (PTSD) Stroke Migraines Headache ADHD Shoulder pain Osteoporosis Lumbar spine pain Foot pain Fibromyalgia Chronic back pain Cervical spine disease Carpal tunnel syndrome Ankle pain Rubella Mumps History of urinary incontinence (~2007) Diverticular disease (~2002) Colon polyps (~2017) Pulmonary embolism (~2006) Deep vein thrombosis (~2006) Colovaginal fistula (2006) Hypertension (~2002) Acute acalculous cholecystitis Surgical History History of arthroplasty of left knee (08/21/18) H/O spinal fusion History of exploratory laparotomy History of total knee arthroplasty (~2006) History of esophagogastroduodenoscopy (EGD) (~01/10/18) History of colonoscopy (~01/10/18) History of hysterectomy (~1990) History of gynecologic surgery (2006) History of unilateral oophorectomy (1992) History of unilateral oophorectomy (1993) Status post colonoscopy (2013) Status post delivery (1974) Status post delivery (1973) Status post exploratory laparotomy (2004) History of bilateral salpingo-oophorectomy (BSO) Status post hysterectomy (1990) Family History Father No problems noted. Mother No problems noted. Social History household members: significant other Smoking Status: Former smoker alcohol intake: never Smoking Status: Former smoker tobacco type: cigarettes alcohol intake frequency: 0-2 drinks per day Substance Use Type: marijuana Exam Initial Vital Signs Initial Vital Signs: Vital Signs Temperature 98.3 F 05/23/24 15:23 Pulse Rate 90 05/23/24 15:23 Respiratory Rate 16 05/23/24 15:23 Blood Pressure 260/130 H 05/23/24 15:23 Pulse Oximetry 96 05/23/24 15:23 Oxygen Delivery Method Room Air 05/23/24 15:23 GENERAL: Alert well-appearing 68-year-old and in no acute distress. HEENT: Head atraumatic,EOMI, pupils reactive, face symmetric, moist mucous membranes CARDIOVASCULAR: Regular rate and rhythm without murmurs, rubs or gallops. RESPIRATORY: Breath sounds equal bilaterally, no wheezes rales or rhonchi. ABDOMEN: Soft, nontender. Normoactive bowel sounds all 4 quadrants. No guarding or rebound. EXTREMITIES: Normal range of motion, no clubbing or edema. Neurovascularly intact NEUROLOGICAL: Alert and oriented x4.Normal gait and speech. Cranial nerves II through XII grossly intact. SKIN: Warm, dry, no laceration, no petechiae, no rashes or lesions. Course Orders Ordered: Discontinued Medications Ketorolac Tromethamine (Ketorolac 30 Mg/Ml Vial) 15 mg IV NOW ONE Stop: 05/23/24 16:26 Last Admin: 05/23/24 16:44 Dose: 15 mg Documented By: PARKER Labetalol HCl (Labetalol 20 Mg/4 Ml Syringe) 10 mg IV NOW ONE Stop: 05/23/24 17:23 Last Admin: 05/23/24 17:32 Dose: 10 mg Documented By: BHANU Vital Signs Vital signs: Vital Signs - 8 hr 05/23/24 15:23 05/23/24 15:49 05/23/24 15:50 Temperature 98.3 F Pulse Rate 90 97 H Respiratory Rate 16 11 L Blood Pressure 260/130 H 249/136 H Pulse Oximetry 96 Oxygen Delivery Method Room Air 05/23/24 15:50 05/23/24 16:00 05/23/24 16:00 Temperature Pulse Rate 93 H 93 H Respiratory Rate 17 Blood Pressure 233/116 H Pulse Oximetry 99 99 Oxygen Delivery Method Room Air 05/23/24 16:41 05/23/24 16:42 05/23/24 16:42 Temperature Pulse Rate 89 89 Respiratory Rate 24 20 Blood Pressure 242/113 H Pulse Oximetry 98 98 Oxygen Delivery Method 05/23/24 17:00 05/23/24 17:01 05/23/24 17:01 Temperature Pulse Rate 81 82 Respiratory Rate 15 20 Blood Pressure 232/102 H Pulse Oximetry 97 97 Oxygen Delivery Method 05/23/24 17:30 05/23/24 17:31 05/23/24 17:31 Temperature Pulse Rate 81 81 Respiratory Rate 19 15 Blood Pressure 226/105 H Pulse Oximetry 97 97 Oxygen Delivery Method 05/23/24 17:32 05/23/24 17:32 05/23/24 17:32 Temperature Pulse Rate 78 78 Respiratory Rate 17 Blood Pressure 227/105 H 227/105 H Pulse Oximetry 97 Oxygen Delivery Method 05/23/24 17:40 05/23/24 17:40 05/23/24 17:45 Temperature Pulse Rate 74 Respiratory Rate 19 Blood Pressure 217/95 H 204/96 H Pulse Oximetry 97 Oxygen Delivery Method 05/23/24 17:45 05/23/24 17:50 05/23/24 17:50 Temperature Pulse Rate 73 74 Respiratory Rate 15 Blood Pressure 210/101 H Pulse Oximetry 97 95 Oxygen Delivery Method Room Air MDM - Fall Lab Data 05/23/24 16:20 05/23/24 16:20 Labs: Lab Results 05/23/24 Range/Units 16:20 WBC 9.4 (4.5-11.0) X10^3/uL RBC 4.59 (4.0-5.2) X10^6/uL Hgb 12.4 (12.0-16.0) g/dL Hct 37.7 (36-46) % MCV 82.2 (80-100) fL MCH 27.0 (26-34) PG MCHC 32.8 (30-36) % RDW 16.7 H (11.6-14.8) % Plt Count 266 (150-400) X10^3/uL Neut % (Auto) 57.1 (50-75) % Lymph % (Auto) 31.9 (25-40) % Baxter % (Auto) 7.8 (3-14) % Eos % (Auto) 2.6 (2-4) % Baso % (Auto) 0.6 (0-2) % Neut # (Auto) 5400 (2115-7472) /uL Lymph # (Auto) 3000 (5533-5322) /uL Baxter # (Auto) 700 (0-900) /uL Eos # (Auto) 200 (0-450) /uL Baso # (Auto) 100 (0-100) /uL Sodium 137 (137-145) mmol/L Potassium 3.7 (3.4-5.1) mmol/L Chloride 105 (98-107) mmol/L Carbon Dioxide 26 (22-32) mmol/L BUN 17 (7-17) mg/dL Creatinine 0.91 (0.52-1.04) mg/dL Estimated GFR > 60 (>60) mL/min BUN/Creatinine Ratio 18.7 (6-22) Glucose 147 H (80-110) mg/dL Calcium 9.3 (8.4-10.2) mg/dL Total Bilirubin 0.7 (0.2-1.3) mg/dL AST 27 (14-36) IU/L ALT 26 (<35) IU/L Alkaline Phosphatase 80 (38-126) U/L Total Creatine Kinase 44 (30-135) U/L Troponin I 0.012 (0.01-0.034) ng/mL NT-Pro-B Natriuret Pep 129 H (<125) pg/mL Total Protein 7.1 (6.3-8.2) g/dL Albumin 3.8 (3.5-5.0) g/dL Globulin 3.3 (1.7-4.1) g/dL Albumin/Globulin Ratio 1.2 (1.0-2.8) Lipase 231 (23-300) U/L Imaging Data CT scan - head: Radiologist's Impression: PROCEDURE: CT HEAD/BRAIN WO CON INDICATIONS: fall HTN TECHNIQUE: Noncontrast 4.5 mm thick angled axial sections acquired from the foramen magnum to the vertex, with coronal and sagittal reformats. For radiation dose reduction, the following was used: automated exposure control, adjustment of mA and/or kV according to patient size. COMPARISON: [facility], , MR HEAD/BRAIN WO/W CON, 04/10/2023, 9:41. FINDINGS: Image quality: Diagnostic. CSF spaces: Basal cisterns are patent. No extra-axial fluid collections. The ventricles are symmetric in size and shape. Brain: No intracranial bleeds or masses. There is cerebral volume loss for age, with resultant ventricular and sulcal prominence. There are periventricular and deep white matter chronic small vessel ischemic changes. There is intracranial internal carotid artery atherosclerosis. Skull and face: Calvarium and visualized facial bones appear intact, without suspicious lesions. Sinuses: Visualized sinuses and mastoids are clear. IMPRESSION: 1. No acute intracranial pathology. 2. Age related volume loss and extensive white matter small vessel chronic ischemic changes. Dictated by: Praveen Bo M.D. on 05/23/2024 at 16:47 Approved by: Praveen Bo M.D. on 05/23/2024 at 16:47 CT - cervical spine: Radiologist's Impression: PROCEDURE: CT CERVICAL SPINE WO CON INDICATIONS: fall TECHNIQUE: Noncontrast 3 mm thick sections acquired from the skull base to the T4 level. Sagittal and coronal reformats were then constructed. For radiation dose reduction, the following was used: automated exposure control, adjustment of mA and/or kV according to patient size. COMPARISON: None. FINDINGS: Image quality: Excellent. Bones: There is anterior fusion of cervical spine at C5-6 level. Surgical hardware are in expected position without gross hardware loosening or failure. There is near complete bony fusion at C5-6 level. No acute cervical spine fracture or dislocation. No suspicious bony lesions. Visualized superior ribs are intact. Loss of disc height, degenerative endplate changes and dorsal disc osteophyte complex formation at C4-5 and C6-7 levels are seen causing [id number] central canal stenosis and mild bilateral neural foraminal narrowing. Soft tissues: Prevertebral soft tissues are normal in thickness. No paravertebral hematomas. No apical pneumothoraces. IMPRESSION: 1. No displaced cervical spine fracture or traumatic subluxation. 2. Prior ACDF at C5-6 level. No gross hardware loosening or failure. 3. Degenerative disc disease at C4-5 and C6-7 levels as above. Dictated by: Praveen Bo M.D. on 05/23/2024 at 16:54 Chest x-ray: Radiologist's Impression: PROCEDURE: XR CHEST 1V INDICATIONS: fall TECHNIQUE: One view of the chest was acquired. COMPARISON: [facility], , XR CHEST 1V, 07/10/2023, 10:51. FINDINGS: Surgical changes and devices: Postfusion changes are seen in visualized lower cervical spine. Lungs and pleura: There is mild pulmonary vascular congestion. Ill-defined airspace opacity in right infrahilar region is seen concerning for small right lower lobe infiltrate versus atelectasis. No pleural effusions or pneumothorax. Mediastinum: Mediastinal contours appear normal. Heart size is mildly enlarged. Bones and chest wall: No suspicious bony lesions. Overlying soft tissues appear unremarkable. IMPRESSION: Cardiomegaly and mild congestion with suggestion of right infrahilar small infiltrate/atelectasis. No pleural effusion or pneumothorax. ECG Data Attestation: I personally reviewed and interpreted this ECG as follows: Prior ECG tracings: available for review Interpretation: Sinus rhythm rate 70 OR interval 140 QRS [address] changes no Q-waves right bundle-branch block noted similar to previous EKGs in 2022 MDM Narrative Medical decision making narrative: MDM CC: Headache Complicating co-morbidities: Diabetes, hypertension, hyperlpidemia, polyneuropathy, anxiety, ptsd Medical records reviewed: Prior PCP note on 04/17/2024. States patient has recurrent falls and balance issues. Ongoing headache and migraines have worsened, she is chronic pain. It does report that she was taking lisinopril twice a day but no longer taking HCTZ Blood pressure at that time was 142/90 Differential considered: Hypertensive emergency, intracranial hemorrhage CVA TIA you coronary syndrome Exam documented above, pertinent findings include: Lab Test results independently reviewed as above. Pertinent findings: Troponin negative creatinine 0.91 no evidence of ALFONSO electrolyte within normal limit WBC within normal limits no leukocytosis or anemia Independently reviewed EKG as above no ischemia or arrhythmia Imaging studies independently reviewed: chest x-ray negative Head CT negative for intracranial hemorrhage CT cervical spine no fracture Consultations: None Treatments: Toradol, labetalol Re-evaluations: Patient is feeling better after Toradol in regards to her headache. Blood pressure has come down some but is still quite hypertensive Discussion: 68-year-old female presents today with headache and hypertension with ongoing falls. She has no evidence of end-organ damage regards to her hypertension. She has no focal deficits suggest CVA. It does report that she has no longer taking hydrochlorothiazide she has been having ongoing headaches which might be to hypertension. Head CT is negative for intracranial hemorrhage no injury from her falls. Headache has improved Toradol though still hypertensive she did get a dose of labetalol. Will restart her on hydrochlorothiazide. Discussed with patient that she needs to take her blood pressure she is difficulty getting the blood pressure cuff on her is not really able to help her. Discharge Plan Departure Patient Disposition: Home Clinical Impression: Hypertension Instructions: Essential Hypertension Activity Restrictions/Additional Instructions: *You have been diagnosed with high blood pressure *What to do: At this time please monitor your blood pressure twice a day and record it you will likely need a change in your medication *Continue to take medications as directed Hydrochlorothiazide 25mg daily, Also known as HCTZ. Look at medications at home. Don't take double. *Follow up with your primary care provider in 2-3 days or call [phone] *Return to ER if you should have increasing headache numbness tingling weakness falls [or] any new, worsening or concerning symptoms Prescriptions: New hydrochlorothiazide 25 mg tablet 25 mg PO DAILY Qty: 30 0RF No Action metformin 1,000 mg tablet 1,000 mg PO BID Qty: 180 3RF sumatriptan succinate 50 mg tablet See Rx Instructions PO .COMPLEX Qty: 20 3RF Rx Instructions: take 1 tab at onset of headache; if no relief may repeat 1 tab after at least 2 hrs; max = 4 tabs/24 hr PO meclizine 12.5 mg tablet 12.5 mg PO BID-QID PRN (Reason: dizziness) Qty: 90 0RF ondansetron 8 mg tablet,disintegrating 8 mg PO Q12H PRN (Reason: nausea and vomiting) Qty: 30 1RF magnesium 400 mg 100 mg PO 1XD Rx Instructions: Take one tablet by mouth daily (DME) Disabled parking permit See Rx Instructions .Route .MEDSUPPLY Qty: 1 0RF Rx Instructions: Permanent hydrochlorothiazide 25 mg tablet 25 mg PO QAM Qty: 30 3RF Hold Instructions: Hypotension epinephrine 0.3 mg/0.3 mL auto-injector 0.3 mg IM PRN PRN (Reason: Anaphylaxis) Qty: 2 1RF (DME) Diabetic shoes and inserts See Rx Instructions .Route .MEDSUPPLY Qty: 1 0RF Rx Instructions: Diabetic shoes and inserts lisinopril 40 mg tablet 40 mg PO BID Qty: 180 3RF Hold Instructions: Pt seen in ER in Sunday, told to hold this med Rx Instructions: This is increased dose per Cardiology. Patient is almost out -- please refill as soon as possible. Thank you 03/20/23. atorvastatin 40 mg tablet 40 mg PO DAILY Qty: 90 3RF levothyroxine 150 mcg tablet 150 mcg PO DAILY Qty: 90 1RF clonazepam 2 mg tablet 2 mg PO BID PRN (Reason: anxiety) Qty: 56 2RF lisinopril 40 mg tablet 40 mg PO BID Qty: 180 0RF aspirin 81 mg tablet,delayed release (DR/EC) 81 mg PO DAILY (DME) Respironics Dreamstation Auto CPAP Qty: 1 Dose Instruction: As directed Patient Comments: Pressure: 6-14 cmH2O DME:[facility] Rx Instructions: As directed Referrals: Janes Terrell MD [Primary Care Provider] - Stand Alone Forms: Patient Portal/API/Survey
--- NOTE | 2024-05-23 16:05 | DI.RAD.S_ITS ---
PROCEDURE: XR CHEST 1V INDICATIONS: fall TECHNIQUE: One view of the chest was acquired. COMPARISON: [facility], CR, XR CHEST 1V, 07/10/2023, 10:51. FINDINGS: Surgical changes and devices: Postfusion changes are seen in visualized lower cervical spine. Lungs and pleura: There is mild pulmonary vascular congestion. Ill-defined airspace opacity in right infrahilar region is seen concerning for small right lower lobe infiltrate versus atelectasis. No pleural effusions or pneumothorax. Mediastinum: Mediastinal contours appear normal. Heart size is mildly enlarged. Bones and chest wall: No suspicious bony lesions. Overlying soft tissues appear unremarkable. IMPRESSION: Cardiomegaly and mild congestion with suggestion of right infrahilar small infiltrate/atelectasis. No pleural effusion or pneumothorax. Dictated by: Praveen Bo M.D. on 05/23/2024 at 16:53 Approved by: Praveen Bo M.D. on 05/23/2024 at 16:54
--- NOTE | 2024-05-23 16:05 | EKG_ITS ---
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
[2024-05-23 16:26] LABS: Add Manual Diff / Slide Review NO; Basophils Absolute Auto 100 /uL (0-100); Basophils Percent Auto 0.6 % (0-2); Eosinophils Absolute Auto 200 /uL (0-450); Eosinophils Percent Auto 2.6 % (2-4); Hematocrit 37.7 % (36-46); Hemoglobin 12.4 g/dL (12.0-16.0); Lymphocytes Absolute Auto 3000 /uL (1100-4500); Lymphocytes Percent Auto 31.9 % (25-40); Mean Corpuscular HGB Conc 32.8 % (30-36); Mean Corpuscular Volume 82.2 fL (80-100); Monocytes Absolute Auto 700 /uL (0-900); Monocytes Percent Auto 7.8 % (3-14); Neutrophils Absolute Auto 5400 /uL (1500-7000); Neutrophils Percent Auto 57.1 % (50-75); Platelet Count 266 X10^3/uL (150-400); Red Blood Cell Count 4.59 X10^6/uL (4.0-5.2); Red Cell Distribution Width 16.7 % (11.6-14.8); White Blood Cell Count 9.4 X10^3/uL (4.5-11.0)
[2024-05-23 16:39] LABS: Alanine Aminotransferase 26 IU/L (<35); Albumin 3.8 g/dL (3.5-5.0); Albumin Globulin Ratio 1.2 (1.0-2.8); Alkaline Phosphatase 80 U/L (38-126); Aspartate Aminotransferase 27 IU/L (14-36); BUN Creatinine Ratio 18.7 (6-22); Bilirubin Total 0.7 mg/dL (0.2-1.3); Blood Urea Nitrogen 17 mg/dL (7-17); Calcium 9.3 mg/dL (8.4-10.2); Carbon Dioxide 26 mmol/L (22-32); Chloride 105 mmol/L (98-107); Creatine Kinase 44 U/L (30-135); Estimated Glomerular Filt Rate > 60 mL/min (>60); Globulin 3.3 g/dL (1.7-4.1); Glucose 147 mg/dL (80-110); HEMOLYSIS < 15 (0-50); Lipase 231 U/L (23-300); Potassium 3.7 mmol/L (3.4-5.1); Sodium 137 mmol/L (137-145); Total Protein 7.1 g/dL (6.3-8.2)
[2024-05-23] MEDS: KETOROLAC 30 MG/ML VIAL 15 MG IV (16:44)
[2024-05-23 16:49] LABS: NT-proBNP (BNP-Adult 18+) 129 pg/mL (<125)
[2024-05-23 16:51] LABS: Troponin I 0.012 ng/mL (0.01-0.034)
[2024-05-23] MEDS: LABETALOL 20 MG/4 ML SYRINGE 10 MG IV (17:32)
== END 2024-05-23 18:27 | disposition home or self-care (01) ==
PROVIDERS: Emergency Provider Emergency Medicine; PCP Family Medicine
DX: I10 Essential (primary) hypertension (principal); S09.90XA Unspecified injury of head, initial encounter; R11.0 Nausea; R60.9 Edema, unspecified; M50.323 Other cervical disc degeneration at C6-C7 level; R29.6 Repeated falls; I51.7 Cardiomegaly; Z79.899 Other long term (current) drug therapy
CPT/HCPCS: 36415; 70450; 71045; 72125; 80053; 82550; 83690; 83880; 84484; 85025; 93005; 96374; 96375; 99284; J1885

== ENCOUNTER → 2024-09-03 07:48 | Outpatient (CLI) | payer MEDICARE, OTHER, SELFPAY ==
[2023-08-30 14:01] VITALS: BMI 43.7
--- NOTE | 2024-09-03 07:50 | DI.RAD.S_ITS ---
PROCEDURE: XR THORACIC SPINE 2V INDICATIONS: Back Pain after Fall TECHNIQUE: 2 views of the thoracic spine were acquired. COMPARISON: None. FINDINGS: Bones: No fractures or dislocations. Moderate multilevel degenerative change of the thoracic spine includes anterior osteophytosis at multiple levels with mild T10-11 intervertebral disc space narrowing. No suspicious bony lesions. 12 pairs of ribs are noted, and appear intact where visualized. Cervical spine fixation hardware noted. Right upper quadrant surgical clips noted. Soft tissues: No paravertebral stripe thickening. IMPRESSION: Degenerative change without evidence of acute osseous abnormality. Dictated by: Ritchie Curry M.D. on 09/03/2024 at 14:05 Approved by: Ritchie Curry M.D. on 09/03/2024 at 14:07
--- NOTE | 2024-09-03 07:50 | DI.RAD.S_ITS ---
PROCEDURE: XR LUMBAR SPINE 2-3V INDICATIONS: Back Pain after Fall TECHNIQUE: 3 views of the lumbar spine were acquired. COMPARISON: None. FINDINGS: Bones: 5 [id number] vertebrae are present. Mild grade 1 retrolisthesis of L4 on L5 noted. There is partial lumbarization of S1. Mild multilevel anterior osteophytosis is identified. A chronic appearing anterior wedging deformity of the L4 vertebral body has resulted in less than 25% anterior height loss. There is otherwise normal bony alignment. No acute vertebral body compression fractures. No suspicious bony lesions. Soft tissues: Overlying bowel gas pattern is normal. No suspicious soft tissue calcifications. Right upper quadrant surgical clips are noted. IMPRESSION: Mild L4-5 spondylosis and mild chronic appearing anterior wedging deformity of the L4 vertebral body without evidence of acute osseous abnormality. Dictated by: Ritchie Curry M.D. on 09/03/2024 at 14:07 Approved by: Ritchie Curry M.D. on 09/03/2024 at 14:09
--- NOTE | 2024-09-03 07:50 | DI.MRI.S_ITS ---
PROCEDURE: MR HEAD/BRAIN WO CON INDICATIONS: persistent posterior JAVED after fall TECHNIQUE: Non-contrast axial T1 spin echo, axial T2 fast spin echo, sagittal and axial FLAIR, coronal T2 fast spin echo, axial gradient echo, axial diffusion and ADC through the brain. COMPARISON: [facility], CT, CT HEAD/BRAIN WO CON, 05/23/2024, 16:29. [facility], MR, MR HEAD/BRAIN WO/W CON, 04/10/2023, 9:41. FINDINGS: Image quality: Excellent. CSF spaces: Ventricles appear symmetric in size and shape. Basal cisterns are patent. There are likely arachnoid cyst seen involving the anterior aspects of the middle cranial fossa. Brain: Generalized brain parenchymal volume loss is seen. Mild chronic small vessel ischemic change can be seen. No intracranial bleeds or mass effects. Brainstem appears normal. Diffusion-weighted images show no acute infarct. No chronic ischemic insults. Normal intravascular flow voids are present. Skull and face: Calvarial bone marrow is normal in signal. Orbits are normal. Sinuses: Sinuses and mastoids are clear. IMPRESSION: No imaging explanation is found for this patient's presenting symptoms. No intracranial hemorrhage is seen. Generalized brain parenchymal volume loss is seen. Likely arachnoid cysts seen involving the anterior aspects of the middle cranial fossa on each side, stable. Dictated by: Niranjan Mendoza M.D. on 09/03/2024 at 9:13 Approved by: Niranjan Mendoza M.D. on 09/03/2024 at 9:16
[2024-09-03 08:51] LABS: Hematocrit 40.7 % (36-46); Hemoglobin 13.4 g/dL (12.0-16.0); Mean Corpuscular HGB Conc 32.9 % (30-36); Mean Corpuscular Hemoglobin 28.1 PG (26-34); Mean Corpuscular Volume 85.4 fL (80-100); Platelet Count 298 X10^3/uL (150-400); Red Blood Cell Count 4.77 X10^6/uL (4.0-5.2); Red Cell Distribution Width 15.8 % (11.6-14.8); White Blood Cell Count 9.4 X10^3/uL (4.5-11.0)
[2024-09-03 08:57] LABS: Hemoglobin A1C% w Est Avg Glu 7.4 % (4.0-6.0)
[2024-09-03 09:32] LABS: Alanine Aminotransferase 37 IU/L (<35); Albumin 4.5 g/dL (3.5-5.0); Albumin Globulin Ratio 1.5 (1.0-2.8); Alkaline Phosphatase 78 U/L (38-126); Aspartate Aminotransferase 37 IU/L (14-36); BUN Creatinine Ratio 19.8 (6-22); Bilirubin Total 0.7 mg/dL (0.2-1.3); Blood Urea Nitrogen 20 mg/dL (7-17); Calcium 10.3 mg/dL (8.4-10.2); Carbon Dioxide 32 mmol/L (22-32); Chloride 96 mmol/L (98-107); Cholesterol 179 mg/dL (140-199); Estimated Glomerular Filt Rate > 60 mL/min (>60); Globulin 3.1 g/dL (1.7-4.1); Glucose 193 mg/dL (80-110); HDL Cholesterol 50 mg/dL (40-60); HEMOLYSIS < 15 (0-50); LDL Cholesterol Calculated 79 mg/dL (<100); Potassium 3.9 mmol/L (3.4-5.1); Sodium 138 mmol/L (137-145); Total Protein 7.6 g/dL (6.3-8.2); Triglycerides 251 mg/dL (35-150)
== END ==
PROVIDERS: PCP Family Medicine; Referring Provider Family Medicine; Visit Provider Family Medicine
DX: R29.6 Repeated falls (principal); M47.814 Spondylosis without myelopathy or radiculopathy, thoracic region; R51.9 Headache, unspecified; R42 Dizziness and giddiness; M47.816 Spondylosis without myelopathy or radiculopathy, lumbar region; M54.6 Pain in thoracic spine; M54.50 Low back pain, unspecified; E11.9 Type 2 diabetes mellitus without complications; I10 Essential (primary) hypertension; E03.9 Hypothyroidism, unspecified; E11.69 Type 2 diabetes mellitus with other specified complication; E78.5 Hyperlipidemia, unspecified; M43.8X6 Other specified deforming dorsopathies, lumbar region
CPT/HCPCS: 36415; 70551; 72070; 72100; 80053; 80061; 83036; 85027